=== PATIENT | female | born 1970 | race Two or more races ===

== ENCOUNTER 2020-07-09 04:52 | Emergency (ER) | payer OTHER, SELFPAY ==
[2020-07-09 05:11] VITALS: PULSE 66; RESP 18; TEMP 36.4; O2SAT 97; BMI 28.9
[2020-07-09] MEDS: 0.9 % Sodium Chloride 1,000 ML 999 ML IV (05:31)
[2020-07-09] MEDS: ondansetron HCL 4 MG/2 ML VIAL IVPUSH (05:32)
[2020-07-09 05:37] LABS: Basophils Percent Auto 0.3 % (0-2); Eosinophils Absolute Auto 0.2 X10*3/uL (0.0-0.4); Hematocrit 43.7 % (37-47); Hemoglobin 14.3 g/dl (12.0-16.0); Imm Gran Abs Auto 0.01 X10*3/uL (0.00-0.03); Imm Gran Pct Auto 0.1 % (0.0-0.4); Lymphocytes Absolute Auto 2.1 X10*3/uL (1.2-4.9); Lymphocytes Percent Auto 28.9 % (20-40); MANUAL DIFF FLAG NO; Mean Corpuscular HGB Conc 32.7 g/dl (31.0-35.0); Mean Corpuscular Hemoglobin 30.1 pg (27.0-33.0); Mean Platelet Volume 9.9 fL (9.4-12.3); Monocytes Absolute Auto 0.5 X10*3/uL (0.1-1.2); Monocytes Percent Auto 6.5 % (2-11); Neutrophils Absolute Auto 4.6 X10*3/uL (2.0-8.3); Neutrophils Percent Auto 62.2 % (45-73); Platelet Count 224 X10*3/uL (160-400); Red Blood Count 4.75 X10*6/uL (4.20-5.50); Red Cell Distribution Width 12.3 % (11.0-16.0); White Blood Count 7.4 X10*3/uL (4.8-10.8)
[2020-07-09 05:39] LABS: UPreg QC Valid YES; Urine Pregnancy NEGATIVE (NEGATIVE)
[2020-07-09 05:40] LABS: Appearance Urine CLEAR; Color Urine YELLOW; Glucose Urine UA NEG (NEG); Leukocyte Esterase Urine NEG (NEG); Nitrite Urine NEG (NEG); Specific Gravity - Urine >= 1.030 (1.005-1.025); UACC Culture Trigger NO; Urine Blood NEG (NEG); Urine Ketones NEG (NEG); Urine Protein NEG (NEG-TRACE)
--- NOTE | 2020-07-09 05:43 | ED.ABDPAIN ---
HPI - Abdominal Pain General Chief Complaint: Abdominal Pain Stated Complaint: NAUSEA/ABD PAIN Time Seen by Provider: 07/09/20 05:07 Source: patient Mode of arrival: ambulatory History of Present Illness HPI narrative: This is a 50-year-old female who states that she began having few episodes nonbloody diarrhea starting on Monday and it subsided and then she began experiencing recurrence of the diarrhea and then yesterday began developing some mild dizziness with headache and developed nausea after breakfast yesterday with mid abdominal discomfort and states that no one else in the house is sick and she does not believe that she ate contaminated food. Otherwise, she denies recent medication changes, antibiotic use, but does endorse that many years ago she had been diagnosed with IBS in her 20s. She denies any urinary symptoms, fevers, chills, shortness of breath, chest pain/palpitations and does have a positive surgical history for hysterectomy. Related Data Home Medications Medication Instructions Recorded Confirmed amitriptyline 10 mg tablet 0 mg PO 07/08/20 07/08/20 duloxetine 30 mg capsule,delayed 30 mg PO DIRECTED cap 07/08/20 07/08/20 release Previous Rx's Medication Instructions Recorded ondansetron HCl [Zofran] 4 mg PO Q8H PRN #6 tab 07/09/20 Allergies Allergy/AdvReac Type Severity Reaction Status Date / Time prochlorperazine Allergy Severe HIGH BP, Verified 07/08/20 14:21 [From COMPAZINE] AND HR EFFECTED ALSO TACKYCARDIA shellfish derived Allergy Severe ANAPHYLAXIS Verified 07/08/20 14:21 [SHELLFISH DERIVED] ciprofloxacin [CIPROFLOXACIN] Allergy Unknown HIVES Verified 07/08/20 14:21 Compazine Allergy Unknown tachycardia Verified 07/08/20 14:21 Review of Systems Review of Systems Pertinent positives and negatives as stated in HPI 10 point review of systems is otherwise negative. Physical Exam Vital Signs: Vital Signs: Last Vital Signs Temp 98 F 07/09/20 07:04 Pulse 62 07/09/20 07:04 Resp 16 07/09/20 07:04 BP 128/78 07/09/20 07:04 Pulse Ox 99 07/09/20 07:04 Body Mass Index 28.9 VITAL SIGNS: Reviewed. GENERAL: Well developed, well nourished, in no acute distress. HEAD: Normocephalic/atraumatic NOSE: Nares patent bilateral OROPHARYNX: no oral lesions noted, posterior pharynx clear and non-erythematous without noted tonsillar enlargement/erythema/exudates NECK: Supple, no adenopathy LUNGS: Normal breath sounds. No adventitious sounds or accessory muscle use. SpO2<97> CARDIOVASCULAR: Regular rate and rhythm without noted murmurs, no JVD or lower extremity edema. ABDOMEN: Soft, non-tender, non-distended with bowel sounds. No rigidity. No guarding. No palpable masses or hernias noted NEUROLOGIC: Alert and oriented x 4. Strength and sensation to light touch were grossly intact x 4. Course Course Course Narrative: This is a 50-year-old female with history and clinical presentation most consistent with likely viral gastroenteritis with subsequent dehydration, but will evaluate for SBO/colitis. All investigations were reviewed and patient was re-evaluated. There are no acute findings other than is a suggestion mild dehydration with patient stating that she is feeling much improved after having received the IV fluids and antiemetic. She is declining the CT scan at this time, with the understanding that this is the recommendation for the complete evaluation for her presenting symptoms. However, it was communicated to her that she is more than welcome to return should she experience any worsening or return of her symptoms. MDM - Abdominal Pain Lab Data Result diagrams: 07/09/20 05:29 07/09/20 05:29 Labs: Lab Results 07/09/20 07/09/20 07/09/20 Range/Units 05:29 05:29 05:29 WBC 7.4 (4.8-10.8) X10*3/uL RBC 4.75 (4.20-5.50) X10*6/uL Hgb 14.3 (12.0-16.0) g/dl Hct 43.7 (37-47) % MCV 92.0 (80-98) fL MCH 30.1 (27.0-33.0) pg MCHC 32.7 (31.0-35.0) g/dl RDW 12.3 (11.0-16.0) % Plt Count 224 (160-400) X10*3/uL MPV 9.9 (9.4-12.3) fL Immature Gran % (Auto) 0.1 (0.0-0.4) % Neut % (Auto) 62.2 (45-73) % Lymph % (Auto) 28.9 (20-40) % [place] % (Auto) 6.5 (2-11) % Eos % (Auto) 2.0 (0-4) % Baso % (Auto) 0.3 (0-2) % Lymph # (Auto) 2.1 (1.2-4.9) X10*3/uL [place] # (Auto) 0.5 (0.1-1.2) X10*3/uL Eos # (Auto) 0.2 (0.0-0.4) X10*3/uL Baso # (Auto) 0.0 (0.0-0.2) X10*3/uL Abs Immat Gran (auto) 0.01 (0.00-0.03) X10*3/uL Absolute Neuts (auto) 4.6 (2.0-8.3) X10*3/uL Absolute Nucleated RBC 0.000 (0.0-0.012) X10*3/uL Nucleated RBC % (auto) 0.0 (0.0-0.2) /100WBC Sodium 141 (135-145) mmol/L Potassium 4.2 (3.3-5.1) mmol/l Chloride 106 (96-108) mmol/L Carbon Dioxide 24 (22-29) mmol/L Anion Gap 15 (12-20) BUN 17 H (9-16) mg/dL Creatinine 0.79 (0.5-1.4) mg/dL Estim Creat Clear Calc 70.6 Estimated GFR > 60 Random Glucose 98 (60-115) mg/dL Calcium 9.2 (8.4-10.2) mg/dL Total Bilirubin 0.7 (0.0-1.0) mg/dL AST 19 (5-31) U/L ALT 20 (0-31) U/L Alkaline Phosphatase 74 (39-117) U/L Total Protein 7.7 (6.5-8.0) g/dL Albumin 4.7 (3.5-5.0) g/dL Lipase 7 L (8-78) U/L Urine Color Urine Appearance Urine pH (5.0-8.0) Ur Specific [place] (1.005-1.025) Urine Protein (NEG-TRACE) MG/DL Urine Glucose (UA) (NEG) MG/DL Urine Ketones (NEG) MG/DL Urine Blood (NEG) Urine Nitrite (NEG) Ur Leukocyte Esterase (NEG) Urine Test (NEGATIVE) 07/09/20 Range/Units 05:29 WBC (4.8-10.8) X10*3/uL RBC (4.20-5.50) X10*6/uL Hgb (12.0-16.0) g/dl Hct (37-47) % MCV (80-98) fL MCH (27.0-33.0) pg MCHC (31.0-35.0) g/dl RDW (11.0-16.0) % Plt Count (160-400) X10*3/uL MPV (9.4-12.3) fL Immature Gran % (Auto) (0.0-0.4) % Neut % (Auto) (45-73) % Lymph % (Auto) (20-40) % [place] % (Auto) (2-11) % Eos % (Auto) (0-4) % Baso % (Auto) (0-2) % Lymph # (Auto) (1.2-4.9) X10*3/uL [place] # (Auto) (0.1-1.2) X10*3/uL Eos # (Auto) (0.0-0.4) X10*3/uL Baso # (Auto) (0.0-0.2) X10*3/uL Abs Immat Gran (auto) (0.00-0.03) X10*3/uL Absolute Neuts (auto) (2.0-8.3) X10*3/uL Absolute Nucleated RBC (0.0-0.012) X10*3/uL Nucleated RBC % (auto) (0.0-0.2) /100WBC Sodium (135-145) mmol/L Potassium (3.3-5.1) mmol/l Chloride (96-108) mmol/L Carbon Dioxide (22-29) mmol/L Anion Gap (12-20) BUN (9-16) mg/dL Creatinine (0.5-1.4) mg/dL Estim Creat Clear Calc Estimated GFR Random Glucose (60-115) mg/dL Calcium (8.4-10.2) mg/dL Total Bilirubin (0.0-1.0) mg/dL AST (5-31) U/L ALT (0-31) U/L Alkaline Phosphatase (39-117) U/L Total Protein (6.5-8.0) g/dL Albumin (3.5-5.0) g/dL Lipase (8-78) U/L Urine Color YELLOW Urine Appearance CLEAR Urine pH 6.0 (5.0-8.0) Ur Specific [place] >= 1.030 H (1.005-1.025) Urine Protein NEG (NEG-TRACE) MG/DL Urine Glucose (UA) NEG (NEG) MG/DL Urine Ketones NEG (NEG) MG/DL Urine Blood NEG (NEG) Urine Nitrite NEG (NEG) Ur Leukocyte Esterase NEG (NEG) Urine Test NEGATIVE (NEGATIVE) Discharge Plan Discharge Clinical Impression: Gastroenteritis, Dehydration Patient Disposition: Home, Self-Care Instructions: Dehydration (ED), Gastroenteritis (ED) Additional Instructions: Continue to drink plenty of water. Resume all home medications. Please do not hesitate to return to this emergency department should you experience acute worsening of your symptoms. Prescriptions: New ondansetron HCl [Zofran] 4 mg tablet 4 mg PO Q8H PRN (Reason: nausea and vomiting) Qty: 6 RF: 0 No Action amitriptyline 10 mg tablet 0 mg PO RF: 0 duloxetine 30 mg capsule,delayed release(DR/EC) 30 mg PO DIRECTED RF: 0 Referrals: Nohelia Cobb MD [Primary Care Provider] - 2 days (Re-evaluation after assessment in ER for nausea/vomiting/diarrhea.) FOR[facility], [facility] Past Medical History Source: nursing notes reviewed Medical History Complex regional pain syndrome i of right lower limb Hallux varus (acquired), right foot Hammer toe of right foot Psoriasis Surgical menopause Surgical History History of bunionectomy History of section History of lumpectomy of right breast History of total abdominal hysterectomy Family History Family History Father CAD (coronary artery disease) HTN (hypertension) Hyperlipidemia Myocardial infarction Mother Asthma Rheumatoid arthritis Hypoglycemia Maternal Grandmother Diabetes mellitus Asthma CAD (coronary artery disease) Maternal Aunt Diabetes mellitus Brother No problems noted. Sister No problems noted. Son No problems noted. Daughter No problems noted. Social History Social History Alcohol intake: current Alcohol intake frequency: holidays/special occasions only Smoking Status: Never smoker Advance Directives: No Advance Directives Information Provided: No
[2020-07-09 06:09] LABS: Alanine Aminotransferase 20 U/L (0-31); Albumin Level 4.7 g/dL (3.5-5.0); Alkaline Phosphatase 74 U/L (39-117); Anion Gap 15 (12-20); Aspartate Amino Transferase 19 U/L (5-31); Bilirubin Total 0.7 mg/dL (0.0-1.0); Blood Urea Nitrogen 17 mg/dL (9-16); Calcium 9.2 mg/dL (8.4-10.2); Carbon Dioxide 24 mmol/L (22-29); Chloride 106 mmol/L (96-108); Creatinine Clr Calc Pharmacy 70.6; Estimated Glomerular Filt Rate > 60; Glucose Random 98 mg/dL (60-115); Potassium 4.2 mmol/l (3.3-5.1); Sodium 141 mmol/L (135-145); Total Protein 7.7 g/dL (6.5-8.0)
[2020-07-09 06:11] LABS: Lipase 7 U/L (8-78)
[2020-07-09 07:04] VITALS: BP 128/78; PULSE 62; RESP 16; TEMP 36.6; O2SAT 99
== END 2020-07-09 09:32 | disposition home or self-care (01) ==
PROVIDERS: Emergency Provider Student in an Organized Health Care Education/Training Program; PCP Internal Medicine
DX: E86.0 Dehydration (principal); K52.9 Noninfective gastroenteritis and colitis, unspecified
CPT/HCPCS: 36415; 80053; 81003; 81025; 83690; 85025; 96361; 96374; 99283; 99284; J2405

== ENCOUNTER 2020-08-03 09:29 | Outpatient (REF) | payer OTHER, SELFPAY | END 2020-08-03 09:30 | disposition home or self-care (01) | LOC: HO.LAB 09:29 | PROVIDERS: Visit Provider Internal Medicine | DX: Z20.822 Contact with and (suspected) exposure to COVID-19 (principal) | CPT/HCPCS: 36415; C9803; U0003; U0005 ==

== ENCOUNTER 2020-09-21 13:35 | Outpatient (REF) | payer OTHER, SELFPAY | END 2020-09-21 13:36 | disposition home or self-care (01) | LOC: HO.LAB 13:35 | PROVIDERS: Visit Provider Internal Medicine | DX: Z20.822 Contact with and (suspected) exposure to COVID-19 (principal) | CPT/HCPCS: 36415; C9803; U0003; U0005 ==

== ENCOUNTER 2020-10-29 15:52 | Outpatient (REF) | payer OTHER, SELFPAY ==
--- NOTE | ~2020-10-29 | MM_ITS ---
EXAMINATION: MM SCREENING DIGITAL BREAST TOMOSYNTHESIS, BILATERAL CLINICAL INFORMATION: Screening. Asymptomatic. The lifetime risk of breast cancer based on the Tyrer-Cuzick Model is 6%. COMPARISON: Mammography: 08/20/2019, 08/16/2018, 06/05/2017, 05/13/2016 TECHNIQUE: Digital breast tomosynthesis is performed in both the craniocaudal and mediolateral oblique views along with computer-aided detection (CAD). Synthesized 2D images are generated from the tomosynthesis. FINDINGS: There are scattered areas of fibroglandular density (ACR BI-RADS breast composition Category b). There are no significant masses, abnormal calcifications, or other abnormalities. There is stable smooth oval nodular contour anterior upper right breast on MLO view 4 cm from nipple similar to prior studies. No developing density. No architectural abnormality. The axilla and skin contours are unremarkable. MM/MM tomosynthesis screening BI IMPRESSION: No significant changes from prior exams. ASSESSMENT: BI-RADS 2: Benign RECOMMENDATION: Routine annual mammography screening. This patient's information was entered into a reminder system with a target due date for their next mammogram.
== END 2020-10-29 15:53 | disposition home or self-care (01) ==
LOC: HO.MAMMO 15:52
PROVIDERS: PCP Internal Medicine; Visit Provider Internal Medicine
DX: Z12.31 Encounter for screening mammogram for malignant neoplasm of breast (principal)
CPT/HCPCS: 77063; 77067

== ENCOUNTER 2020-11-08 23:36 | Emergency (ER) | payer OTHER, SELFPAY ==
[2020-11-08 23:50] VITALS: BP 132/63; BP 142/90; PULSE 71; PULSE 72; RESP 16; TEMP 36.2; O2SAT 90; O2SAT 96; BMI 25.2
--- NOTE | 2020-11-08 23:57 | ED.ALCOHOL ---
HPI - Alcohol General Chief Complaint: ETOH/Substance Use Stated Complaint: etoh Time Seen by Provider: 11/08/20 23:38 Source: patient, family and EMS Mode of arrival: EMS History of Present Illness HPI narrative: 50-year-old female with a past medical history of complex regional pain syndrome, BIBA after wei called EMS due to patient being intoxicated and unresponsive on couch. Per EMS a large amount of vomit was present on scene. Patient was given intranasal Narcan by EMS due to being minimally responsive with slight effect. patient reports her son did not call her today so she drank, reports drinking wine. Vaguely suicidal. Denies illicit drug use, falls, trauma History limited due to patient's acute mental status MD complaint: alcohol intoxication Related Data Home Medications Medication Instructions Recorded Confirmed amitriptyline 10 mg tablet 0 mg PO 07/08/20 07/08/20 duloxetine 30 mg capsule,delayed 30 mg PO DIRECTED cap 07/08/20 07/08/20 release Previous Rx's Medication Instructions Recorded ondansetron HCl [Zofran] 4 mg PO Q8H PRN #6 tab 07/09/20 meclizine 25 mg tablet 25 mg PO BID PRN #20 tab 07/14/20 omeprazole magnesium 20 mg 20 mg PO DAILY #30 cap 07/14/20 capsule,delayed release fluticasone propionate 50 1 spray INTRANASAL QAM #48 ml 09/22/20 mcg/actuation nasal spray,suspension Allergies Allergy/AdvReac Type Severity Reaction Status Date / Time prochlorperazine Allergy Severe HIGH BP, Verified 07/08/20 14:21 [From COMPAZINE] AND HR EFFECTED ALSO TACKYCARDIA shellfish derived Allergy Severe ANAPHYLAXIS Verified 07/08/20 14:21 [SHELLFISH DERIVED] ciprofloxacin [CIPROFLOXACIN] Allergy Unknown HIVES Verified 07/08/20 14:21 Compazine Allergy Unknown tachycardia Verified 07/08/20 14:21 Review of Systems Review of Systems: Constitutional: No Fever Gastrointestinal: + Nausea, + Vomiting, No Abdominal pain, Musculoskeletal: No joint pain Skin: No Skin Lesions, No rash Neuro: No head trauma Psych: +Depression, +SI ROS limited due to patient's acute intoxication Yes all other systems are reviewed and are negative PMFSH Past Medical History Attestation statement: The following information was validated with the patient. Medical History Complex regional pain syndrome i of right lower limb Hallux varus (acquired), right foot Hammer toe of right foot Psoriasis Surgical menopause Surgical History History of bunionectomy History of section History of lumpectomy of right breast History of total abdominal hysterectomy Family History Family History Father CAD (coronary artery disease) HTN (hypertension) Hyperlipidemia Myocardial infarction Mother Asthma Rheumatoid arthritis Hypoglycemia Maternal Grandmother Diabetes mellitus Asthma CAD (coronary artery disease) Maternal Aunt Diabetes mellitus Brother No problems noted. Sister No problems noted. Son No problems noted. Daughter No problems noted. Social History Social History Alcohol intake: current Alcohol intake frequency: holidays/special occasions only Smoking Status: Never smoker Advance Directives: No Advance Directives Information Provided: No Patient : No Physical Exam Vital Signs: Vital Signs: Last Vital Signs Temp 97.8 F 11/09/20 00:00 Pulse 64 11/09/20 00:00 Resp 16 11/09/20 00:00 BP 124/68 11/09/20 00:00 Pulse Ox 100 11/09/20 00:00 Body Mass Index 25.2 Const: Other: Intoxicated, EtOH odor on breath, actively vomiting/dry heaving on exam. Easily arousable to voice General: awake HENMT: Head: Yes normal to inspection and Yes atraumatic Ears: hearing grossly normal bilaterally General nose exam: Normal external nose present Face and sinus: Yes normal facial exam Eyes: General: appearance normal, both eyes and all related structures Pupils: Equal, round and reactive pupils present EOM: EOMs intact bilaterally Neck: Neck: Yes normal visual inspection and Yes no meningeal signs Resp: Effort & Inspection: normal respiratory effort Cardio: Rate: regular rate GI: Inspection: Yes normal to inspection Palpation (GI): Soft to palpation, nontender, no guarding and not rigid Skin: Rashes: no rashes Wounds: no wounds Neuro: General: no meningeal signs Cranial nerves: Yes Equal, round and reactive pupils present Extrem: General: Yes normal to inspection Psych: Affect: Sad affect present Thought content: Depressive thoughts present Course Course Course Narrative: -ethanol 297, labs otherwise unremarkable -0200-- ED care transferred to Dr. Au pending GILLIAM, KEON eval, and clinical sobriety MDM - Alcohol MDM Narrative Medical decision making narrative: 50-year-old female with a past medical history of complex regional pain syndrome, BIBA after fiancee called EMS due to patient being intoxicated and unresponsive on couch. On exam sating 90% on RA, intoxicated, easily arousable to voice, actively vomiting on exam, atraumatic, ROSS, vaguely suicidal. Plan: Labs, antiemetics, BHN Consult Medical Records Attestation: I reviewed the patient's medical records. Lab Data Attestation: I reviewed the patient's lab results. Result diagrams: 11/09/20 00:11 11/09/20 00:11 Labs: Lab Results 11/09/20 11/09/20 11/09/20 Range/Units 00:11 00:11 00:11 WBC 6.9 (4.8-10.8) X10*3/uL RBC 4.53 (4.20-5.50) X10*6/uL Hgb 13.5 (12.0-16.0) g/dl Hct 41.5 (37-47) % MCV 91.6 (80-98) fL MCH 29.8 (27.0-33.0) pg MCHC 32.5 (31.0-35.0) g/dl RDW 12.6 (11.0-16.0) % Plt Count 232 (160-400) X10*3/uL MPV 10.1 (9.4-12.3) fL Immature Gran % (Auto) 0.1 (0.0-0.4) % Neut % (Auto) 48.9 (45-73) % Lymph % (Auto) 43.9 H (20-40) % [place] % (Auto) 5.1 (2-11) % Eos % (Auto) 1.4 (0-4) % Baso % (Auto) 0.6 (0-2) % Lymph # (Auto) 3.0 (1.2-4.9) X10*3/uL [place] # (Auto) 0.4 (0.1-1.2) X10*3/uL Eos # (Auto) 0.1 (0.0-0.4) X10*3/uL Baso # (Auto) 0.0 (0.0-0.2) X10*3/uL Abs Immat Gran (auto) 0.01 (0.00-0.03) X10*3/uL Absolute Neuts (auto) 3.4 (2.0-8.3) X10*3/uL Absolute Nucleated RBC 0.000 (0.0-0.012) X10*3/uL Nucleated RBC % (auto) 0.0 (0.0-0.2) /100WBC Hold Blue Top Sodium 144 (135-145) mmol/L Potassium 4.0 (3.3-5.1) mmol/L Chloride 106 (96-108) mmol/L Carbon Dioxide 24 (22-29) mmol/L Anion Gap 18 (12-20) BUN 13 (9-16) mg/dL Creatinine 0.85 (0.5-1.4) mg/dL Estim Creat Clear Calc 61.4 Estimated GFR > 60 Random Glucose 99 (60-115) mg/dL Calcium 9.7 (8.4-10.2) mg/dL Total Bilirubin 0.4 (0.0-1.0) mg/dL Direct Bilirubin < 0.2 (0.0-0.5) mg/dL AST 20 (5-31) U/L ALT 17 (0-31) U/L Alkaline Phosphatase 58 D (39-117) U/L Total Protein 7.3 (6.5-8.0) g/dL Albumin 4.6 (3.5-5.0) g/dL Lipase (8-78) U/L Ethyl Alcohol 297 mg/dL 11/09/20 11/09/20 Range/Units 00:11 00:11 WBC (4.8-10.8) X10*3/uL RBC (4.20-5.50) X10*6/uL Hgb (12.0-16.0) g/dl Hct (37-47) % MCV (80-98) fL MCH (27.0-33.0) pg MCHC (31.0-35.0) g/dl RDW (11.0-16.0) % Plt Count (160-400) X10*3/uL MPV (9.4-12.3) fL Immature Gran % (Auto) (0.0-0.4) % Neut % (Auto) (45-73) % Lymph % (Auto) (20-40) % [place] % (Auto) (2-11) % Eos % (Auto) (0-4) % Baso % (Auto) (0-2) % Lymph # (Auto) (1.2-4.9) X10*3/uL [place] # (Auto) (0.1-1.2) X10*3/uL Eos # (Auto) (0.0-0.4) X10*3/uL Baso # (Auto) (0.0-0.2) X10*3/uL Abs Immat Gran (auto) (0.00-0.03) X10*3/uL Absolute Neuts (auto) (2.0-8.3) X10*3/uL Absolute Nucleated RBC (0.0-0.012) X10*3/uL Nucleated RBC % (auto) (0.0-0.2) /100WBC Hold Blue Top SEE NOTE Sodium (135-145) mmol/L Potassium (3.3-5.1) mmol/L Chloride (96-108) mmol/L Carbon Dioxide (22-29) mmol/L Anion Gap (12-20) BUN (9-16) mg/dL Creatinine (0.5-1.4) mg/dL Estim Creat Clear Calc Estimated GFR Random Glucose (60-115) mg/dL Calcium (8.4-10.2) mg/dL Total Bilirubin (0.0-1.0) mg/dL Direct Bilirubin (0.0-0.5) mg/dL AST (5-31) U/L ALT (0-31) U/L Alkaline Phosphatase (39-117) U/L Total Protein (6.5-8.0) g/dL Albumin (3.5-5.0) g/dL Lipase 10 (8-78) U/L Ethyl Alcohol mg/dL Discharge Plan Discharge Clinical Impression: Alcoholic intoxication, Depression Instructions: Alcohol Intoxication (ED) Prescriptions: No Action fluticasone propionate 50 mcg/actuation spray,suspension 1 spray intranasal QAM Qty: 48 RF: 1 ondansetron HCl [Zofran] 4 mg tablet 4 mg PO Q8H PRN (Reason: nausea and vomiting) Qty: 6 RF: 0 amitriptyline 10 mg tablet 0 mg PO RF: 0 duloxetine 30 mg capsule,delayed release(DR/EC) 30 mg PO DIRECTED RF: 0 omeprazole magnesium 20 mg capsule,delayed release(DR/EC) 20 mg PO DAILY Qty: 30 RF: 0 meclizine 25 mg tablet 25 mg PO BID PRN (Reason: dizziness) Qty: 20 RF: 0 Referrals: Physician,Unknown [Primary Care Provider] - 2 days
[2020-11-09] VITALS: BP 124/68; PULSE 64; RESP 16; TEMP 36.6; O2SAT 100
[2020-11-09 00:19] LABS: MANUAL DIFF FLAG NO
[2020-11-09 00:20] LABS: Basophils Percent Auto 0.6 % (0-2); Eosinophils Absolute Auto 0.1 X10*3/uL (0.0-0.4); Eosinophils Percent Auto 1.4 % (0-4); Hematocrit 41.5 % (37-47); Hemoglobin 13.5 g/dl (12.0-16.0); Imm Gran Abs Auto 0.01 X10*3/uL (0.00-0.03); Imm Gran Pct Auto 0.1 % (0.0-0.4); Lymphocytes Percent Auto 43.9 % (20-40); Mean Corpuscular HGB Conc 32.5 g/dl (31.0-35.0); Mean Corpuscular Hemoglobin 29.8 pg (27.0-33.0); Mean Corpuscular Volume 91.6 fL (80-98); Mean Platelet Volume 10.1 fL (9.4-12.3); Monocytes Absolute Auto 0.4 X10*3/uL (0.1-1.2); Monocytes Percent Auto 5.1 % (2-11); Neutrophils Absolute Auto 3.4 X10*3/uL (2.0-8.3); Neutrophils Percent Auto 48.9 % (45-73); Platelet Count 232 X10*3/uL (160-400); Red Blood Count 4.53 X10*6/uL (4.20-5.50); Red Cell Distribution Width 12.6 % (11.0-16.0); White Blood Count 6.9 X10*3/uL (4.8-10.8)
[2020-11-09] MEDS: ondansetron HCL 4 MG/2 ML VIAL IVPUSH (00:30)
[2020-11-09] MEDS: 0.9 % Sodium Chloride 1,000 ML 999 ML IVCONT ×2 (00:30)
[2020-11-09 00:42] LABS: Ethanol 297 mg/dL
[2020-11-09 00:45] LABS: Lipase 10 U/L (8-78)
[2020-11-09 00:48] LABS: Alanine Aminotransferase 17 U/L (0-31); Albumin Level 4.6 g/dL (3.5-5.0); Alkaline Phosphatase 58 U/L (39-117); Anion Gap 18 (12-20); Aspartate Amino Transferase 20 U/L (5-31); Bilirubin Direct < 0.2 mg/dL (0.0-0.5); Bilirubin Total 0.4 mg/dL (0.0-1.0); Blood Urea Nitrogen 13 mg/dL (9-16); Calcium 9.7 mg/dL (8.4-10.2); Carbon Dioxide 24 mmol/L (22-29); Chloride 106 mmol/L (96-108); Creatinine Clr Calc Pharmacy 61.4; Estimated Glomerular Filt Rate > 60; Glucose Random 99 mg/dL (60-115); Sodium 144 mmol/L (135-145); Total Protein 7.3 g/dL (6.5-8.0)
[2020-11-09 02:31] LABS: Amphetamine Screen Urine Not Detected (Not Detect); Barbiturates, Urine Not Detected (Not Detect); Benzodiazepines Screen Urine Not Detected (Not Detect); Cannabinoid Screen Urine Not Detected (Not Detect); Cocaine Screen Urine Not Detected (Not Detect); Opiate Screen Urine Not Detected (Not Detect); Phencyclidine Screen Urine Not Detected (Not Detect)
[2020-11-09 03:11] VITALS: BP 128/70; PULSE 69; RESP 14; O2SAT 96
[2020-11-09 04:00] VITALS: PULSE 61; RESP 16; O2SAT 98
[2020-11-09 05:51] VITALS: BP 99/66; PULSE 67; RESP 16; TEMP 36.9; O2SAT 98
== END 2020-11-09 07:14 | disposition home or self-care (01) ==
PROVIDERS: Physician Assistant; Emergency Provider Student in an Organized Health Care Education/Training Program
DX: F10.129 Alcohol abuse with intoxication, unspecified (principal); Y90.8 Blood alcohol level of 240 mg/100 ml or more; R45.851 Suicidal ideations; F33.1 Major depressive disorder, recurrent, moderate; Z79.899 Other long term (current) drug therapy
CPT/HCPCS: 36415; 80048; 80076; 80307; 80320; 83690; 85025; 96374; 99285; J2405

== ENCOUNTER 2021-01-07 | Outpatient (REF) | payer OTHER, SELFPAY | END 2021-01-07 00:01 | disposition home or self-care (01) | LOC: HO.LNP | PROVIDERS: Visit Provider Hospitalist | DX: R30.0 Dysuria (principal) | CPT/HCPCS: 87086; 87088; 87186 ==

== ENCOUNTER 2021-01-31 12:17 | Emergency (ER) | payer OTHER, SELFPAY ==
--- NOTE | ~2021-01-31 | XR_ITS ---
EXAMINATION: XR CHEST CLINICAL INFORMATION: Cough. COMPARISON: None TECHNIQUE: Frontal view of the chest was obtained. FINDINGS: The lungs are well-expanded with patchy opacities seen in the right middle lobe. There is a round artifact seen in the right upper lateral chest. Rest lungs are clear. The heart size and pulmonary vascularity is normal. No gross bony abnormality seen. XR/XR chest 1V IMPRESSION: Faint haziness right middle lobe question developing infiltrate.
[2021-01-31 12:27] VITALS: BP 132/75; PULSE 102; RESP 20; TEMP 38.5; O2SAT 99; BMI 23.4
[2021-01-31 13:33] VITALS: BP 132/79; PULSE 94; TEMP 37.8; O2SAT 99
[2021-01-31] MEDS: Acetaminophen 325 MG TABLET 650 MG PO (14:02)
[2021-01-31 14:04] VITALS: BP 135/81; PULSE 101; RESP 23
[2021-01-31 14:05] LABS: MANUAL DIFF FLAG NO
[2021-01-31 14:06] LABS: Basophils Percent Auto 0.2 % (0-2); Eosinophils Percent Auto 0.2 % (0-4); Hematocrit 39.4 % (37-47); Hemoglobin 12.9 g/dl (12.0-16.0); Imm Gran Abs Auto 0.01 X10*3/uL (0.00-0.03); Imm Gran Pct Auto 0.2 % (0.0-0.4); Lymphocytes Absolute Auto 0.7 X10*3/uL (1.2-4.9); Lymphocytes Percent Auto 15.6 % (20-40); Mean Corpuscular HGB Conc 32.7 g/dl (31.0-35.0); Mean Corpuscular Hemoglobin 30.2 pg (27.0-33.0); Mean Corpuscular Volume 92.3 fL (80-98); Mean Platelet Volume 9.6 fL (9.4-12.3); Monocytes Absolute Auto 0.5 X10*3/uL (0.1-1.2); Monocytes Percent Auto 11.6 % (2-11); Neutrophils Absolute Auto 3.2 X10*3/uL (2.0-8.3); Neutrophils Percent Auto 72.2 % (45-73); Platelet Count 170 X10*3/uL (160-400); Red Blood Count 4.27 X10*6/uL (4.20-5.50); Red Cell Distribution Width 13.9 % (11.0-16.0); White Blood Count 4.5 X10*3/uL (4.8-10.8)
[2021-01-31 14:08] VITALS: PULSE 101; O2SAT 95
[2021-01-31 14:17] LABS: Prothrombin Time 10.9 SEC (9.9-13.0)
[2021-01-31 14:19] LABS: Partial Thromboplastin Time 31.3 SEC (24.1-38.0)
[2021-01-31 14:30] LABS: Lactic Acid 0.9 mmol/L (0.5-2.0)
[2021-01-31 14:34] LABS: Alanine Aminotransferase 33 U/L (0-31); Albumin Level 4.4 g/dL (3.5-5.0); Alkaline Phosphatase 64 U/L (39-117); Anion Gap 14 (12-20); Aspartate Amino Transferase 35 U/L (5-31); Bilirubin Direct 0.2 mg/dL (0.0-0.5); Bilirubin Total 0.6 mg/dL (0.0-1.0); Blood Urea Nitrogen 13 mg/dL (9-16); Calcium 9.2 mg/dL (8.4-10.2); Carbon Dioxide 25 mmol/L (22-29); Chloride 111 mmol/L (96-108); Creatinine Clr Calc Pharmacy 58.7; Estimated Glomerular Filt Rate > 60; Glucose Random 89 mg/dL (60-115); Potassium 3.9 mmol/L (3.3-5.1); Sodium 146 mmol/L (135-145); Total Protein 7.1 g/dL (6.5-8.0)
[2021-01-31 14:44] LABS: Influenza A PCR NEGATIVE (Negative); Influenza B PCR NEGATIVE (Negative); Resp Syncy Virus RNA Qual PCR NEGATIVE (Negative); SARS COV2 PCR INHOUSE POSITIVE (Negative)
--- NOTE | 2021-01-31 14:48 | ED_ITS ---
HPI - URI/Sore Throat General Chief Complaint: Upper Respiratory Symptoms Stated Complaint: chills, fever, nausea, headache Time Seen by Provider: 01/31/21 14:47 Source: patient Mode of arrival: ambulatory Limitations: no limitations History of Present Illness HPI Narrative: Patient with no significant past medical history has not taken COVID vaccine been feeling weak congested sore throat body aches loss of taste sensation for last 2-3 days no one at home with COVID positive but patient was outside in the mall meeting people. No chest pain but has dry cough feels exhausted when patient arrived had temperature of 101.3 degrees MD elicited complaint: fever, cough, sore throat and nasal congestion Related Data Home Medications Medication Instructions Recorded Confirmed estradiol 0 vag ring VAGINAL 01/01/21 01/07/21 Previous Rx's Medication Instructions Recorded fluticasone propionate 50 1 spray INTRANASAL QAM #48 ml 09/22/20 mcg/actuation nasal spray,suspension clobetasol 0.05 % topical ointment 1 appl TOPICAL BID 14 Days #60 g 01/01/21 sulfamethoxazole 800 1 tab PO BID #14 tab 01/07/21 mg-trimethoprim 160 mg tablet (Bactrim DS) azithromycin 500 mg tablet 500 mg PO DAILY 3 Days #3 tab 01/31/21 (Zithromax TRI-GEOVANNA) codeine 10 mg-guaifenesin 100 mg/5 10 ml PO Q6H PRN #237 ml 01/31/21 mL oral liquid dexamethasone 6 mg tablet 6 mg PO DAILY #7 tab 01/31/21 (Decadron) Allergies Allergy/AdvReac Type Severity Reaction Status Date / Time prochlorperazine Allergy Severe HIGH BP, Verified 01/07/21 15:36 [From COMPAZINE] AND HR EFFECTED ALSO TACKYCARDIA shellfish derived Allergy Severe ANAPHYLAXIS Verified 01/07/21 15:36 [SHELLFISH DERIVED] ciprofloxacin [CIPROFLOXACIN] Allergy Unknown HIVES Verified 01/07/21 15:36 Compazine Allergy Unknown tachycardia Verified 01/07/21 15:36 Review of Systems Review of Systems: Yes all other systems are reviewed and are negative [facility] Past Medical History Medical History Complex regional pain syndrome i of right lower limb Hallux varus (acquired), right foot Hammer toe of right foot Psoriasis Surgical menopause Surgical History History of bunionectomy History of section History of lumpectomy of right breast History of total abdominal hysterectomy Family History Family History Father CAD (coronary artery disease) HTN (hypertension) Hyperlipidemia Myocardial infarction Mother Asthma Rheumatoid arthritis Hypoglycemia Maternal Grandmother Diabetes mellitus Asthma CAD (coronary artery disease) Maternal Aunt Diabetes mellitus Brother No problems noted. Sister No problems noted. Son No problems noted. Daughter No problems noted. Social History Social History Alcohol intake: current Alcohol intake frequency: holidays/special occasions only Alcohol type: wine and hard liquor Patient Tobacco Use Status: Never used Tobacco Use of substances other than those prescribed or required for medical reasons: No Advance Directives: No Advance Directives Information Provided: Yes Patient : No Physical Exam Vital Signs: Vital Signs: Last Vital Signs Temp 99.7 F 01/31/21 16:15 Pulse 98 01/31/21 16:15 Resp 19 01/31/21 16:15 BP 123/70 01/31/21 16:15 Pulse Ox 96 01/31/21 16:15 Body Mass Index 23.4 Appearance: Alert. Oriented X3. No acute distress. Eyes: PERRLA, No Nystagmus ENT: Pharynx normal. Oral Mucosa moist Neck: Normal inspection. Neck supple. CVS: Tachycardia with heart rate 102 beats per minute no murmur or gallop Pulses normal. Respiratory: No respiratory distress. Equal air entry bilateral, no wheezing/rales/rhonchi Abdomen: Soft and nontender. Bowel sounds are present, no mass palpable, no CVA tenderness Skin: Skin warm and dry. Normal skin color. Normal skin turgor. Extremities: No lower extremity edema. No calf tenderness Neuro: Oriented X 3. No motor deficit. MDM - URI/Sore Throat MDM Narrative Medical decision making narrative: Patient with COVID-19 positive with slight infiltrate in the right lung saturating 99% at room air will discharge patient home on Decadron and Zithromax advised to come back to the ER in case shortness of breath gets worse Differential Diagnosis Differential diagnosis: Likely upper respiratory infection Lab Data Attestation: I reviewed the patient's lab results. Result diagrams: 01/31/21 13:56 01/31/21 13:56 Labs: Lab Results 01/31/21 01/31/21 01/31/21 Range/Units 13:56 13:56 13:56 WBC 4.5 L (4.8-10.8) X10*3/uL RBC 4.27 (4.20-5.50) X10*6/uL Hgb 12.9 (12.0-16.0) g/dl Hct 39.4 (37-47) % MCV 92.3 (80-98) fL MCH 30.2 (27.0-33.0) pg MCHC 32.7 (31.0-35.0) g/dl RDW 13.9 (11.0-16.0) % Plt Count 170 D (160-400) X10*3/uL MPV 9.6 (9.4-12.3) fL Immature Gran % (Auto) 0.2 (0.0-0.4) % Neut % (Auto) 72.2 (45-73) % Lymph % (Auto) 15.6 L (20-40) % [place] % (Auto) 11.6 H (2-11) % Eos % (Auto) 0.2 (0-4) % Baso % (Auto) 0.2 (0-2) % Lymph # (Auto) 0.7 L (1.2-4.9) X10*3/uL [place] # (Auto) 0.5 (0.1-1.2) X10*3/uL Eos # (Auto) 0.0 (0.0-0.4) X10*3/uL Baso # (Auto) 0.0 (0.0-0.2) X10*3/uL Abs Immat Gran (auto) 0.01 (0.00-0.03) X10*3/uL Absolute Neuts (auto) 3.2 (2.0-8.3) X10*3/uL Absolute Nucleated RBC 0.000 (0.0-0.012) X10*3/uL Nucleated RBC % (auto) 0.0 (0.0-0.2) /100WBC PT 10.9 (9.9-13.0) SEC INR 1.0 (0.9-1.1) APTT 31.3 (24.1-38.0) SEC D-Dimer < 200 NG/ML Sodium 146 H (135-145) mmol/L Potassium 3.9 (3.3-5.1) mmol/L Chloride 111 H (96-108) mmol/L Carbon Dioxide 25 (22-29) mmol/L Anion Gap 14 (12-20) BUN 13 (9-16) mg/dL Creatinine 0.85 (0.5-1.4) mg/dL Estim Creat Clear Calc 58.7 Estimated GFR > 60 Random Glucose 89 (60-115) mg/dL Lactic Acid (0.5-2.0) mmol/L Calcium 9.2 (8.4-10.2) mg/dL Total Bilirubin 0.6 (0.0-1.0) mg/dL Direct Bilirubin 0.2 (0.0-0.5) mg/dL AST 35 H D (5-31) U/L ALT 33 H (0-31) U/L Alkaline Phosphatase 64 (39-117) U/L Total Protein 7.1 (6.5-8.0) g/dL Albumin 4.4 (3.5-5.0) g/dL Coronavirus (PCR) (Negative) Influenza Type A (PCR) (Negative) Influenza Type B (PCR) (Negative) RSV RNA Qual (PCR) (Negative) 01/31/21 01/31/21 Range/Units 13:56 13:56 WBC (4.8-10.8) X10*3/uL RBC (4.20-5.50) X10*6/uL Hgb (12.0-16.0) g/dl Hct (37-47) % MCV (80-98) fL MCH (27.0-33.0) pg MCHC (31.0-35.0) g/dl RDW (11.0-16.0) % Plt Count (160-400) X10*3/uL MPV (9.4-12.3) fL Immature Gran % (Auto) (0.0-0.4) % Neut % (Auto) (45-73) % Lymph % (Auto) (20-40) % [place] % (Auto) (2-11) % Eos % (Auto) (0-4) % Baso % (Auto) (0-2) % Lymph # (Auto) (1.2-4.9) X10*3/uL [place] # (Auto) (0.1-1.2) X10*3/uL Eos # (Auto) (0.0-0.4) X10*3/uL Baso # (Auto) (0.0-0.2) X10*3/uL Abs Immat Gran (auto) (0.00-0.03) X10*3/uL Absolute Neuts (auto) (2.0-8.3) X10*3/uL Absolute Nucleated RBC (0.0-0.012) X10*3/uL Nucleated RBC % (auto) (0.0-0.2) /100WBC PT (9.9-13.0) SEC INR (0.9-1.1) APTT (24.1-38.0) SEC D-Dimer NG/ML Sodium (135-145) mmol/L Potassium (3.3-5.1) mmol/L Chloride (96-108) mmol/L Carbon Dioxide (22-29) mmol/L Anion Gap (12-20) BUN (9-16) mg/dL Creatinine (0.5-1.4) mg/dL Estim Creat Clear Calc Estimated GFR Random Glucose (60-115) mg/dL Lactic Acid 0.9 (0.5-2.0) mmol/L Calcium (8.4-10.2) mg/dL Total Bilirubin (0.0-1.0) mg/dL Direct Bilirubin (0.0-0.5) mg/dL AST (5-31) U/L ALT (0-31) U/L Alkaline Phosphatase (39-117) U/L Total Protein (6.5-8.0) g/dL Albumin (3.5-5.0) g/dL Coronavirus (PCR) POSITIVE A (Negative) Influenza Type A (PCR) NEGATIVE (Negative) Influenza Type B (PCR) NEGATIVE (Negative) RSV RNA Qual (PCR) NEGATIVE (Negative) Discharge Plan Discharge Clinical Impression: Pneumonia due to COVID-19 virus Patient Disposition: Home, Self-Care Instructions: COVID-19 (Coronavirus Disease 2019) (ED) Additional Instructions: Isolation as advised. Drink plenty of fluids. Take medication as prescribed. report to the ER if increased shortness of breath and not feeling better Prescriptions: New azithromycin [Zithromax TRI-GEOVANNA] 500 mg tablet 500 mg PO DAILY 3 Days Qty: 3 RF: 0 dexamethasone [Decadron] 6 mg tablet 6 mg PO DAILY Qty: 7 RF: 0 codeine-guaifenesin 10-100 mg/5 mL liquid 10 ml PO Q6H PRN (Reason: cough) Qty: 237 RF: 0 No Action fluticasone propionate 50 mcg/actuation spray,suspension 1 spray intranasal QAM Qty: 48 RF: 1 Estring 2 mg (7.5 mcg /24 hour) ring 0 vag ring vaginal RF: 0 clobetasol 0.05 % ointment 1 appl topical BID 14 Days Qty: 60 RF: 1 sulfamethoxazole-trimethoprim [Bactrim DS] 800-160 mg tablet 1 tab PO BID Qty: 14 RF: 0
[2021-01-31] MEDS: dexAMETHasone 6 MG TABLET PO (15:38)
[2021-01-31] MEDS: guaiFEN/Codeine SF 200/20/10ML 10 ML LIQUID PO (15:38)
[2021-01-31] MEDS: Azithromycin 500 MG TABLET PO (15:38)
[2021-01-31 15:41] VITALS: PULSE 101; RESP 21; O2SAT 97
[2021-01-31 16:15] VITALS: BP 123/70; PULSE 98; RESP 19; TEMP 37.6; O2SAT 96
[2021-01-31 16:18] LABS: D Dimer < 200 NG/ML
== END 2021-01-31 16:46 | disposition home or self-care (01) ==
PROVIDERS: Emergency Provider Internal Medicine; PCP Internal Medicine
DX: U07.1 COVID-19 (principal); J12.82 Pneumonia due to coronavirus disease 2019; R50.9 Fever, unspecified; R51.9 Headache, unspecified; Z79.899 Other long term (current) drug therapy
CPT/HCPCS: 0241U; 36415; 71045; 80048; 80076; 83605; 85025; 85379; 85610; 85730; 87040; 94640; 94644; 99285; J8540

== ENCOUNTER 2021-02-02 21:41 | Emergency (ER) | payer OTHER, SELFPAY | END 2021-02-02 23:48 | disposition left against medical advice (07) | PROVIDERS: Emergency Provider Emergency Medicine; PCP Internal Medicine | DX: U07.1 COVID-19 (principal) | CPT/HCPCS: 99281 ==

== ENCOUNTER 2021-04-29 | Outpatient (REF) | payer OTHER, SELFPAY ==
[2021-04-30 12:57] LABS: Influenza A PCR NEGATIVE (Negative); Influenza B PCR NEGATIVE (Negative); Resp Syncy Virus RNA Qual PCR NEGATIVE (Negative); SARS COV2 PCR INHOUSE NEGATIVE (Negative)
== END 2021-04-29 00:01 | disposition home or self-care (01) ==
LOC: HO.LNP
PROVIDERS: Visit Provider Physician Assistant Medical
DX: Z20.822 Contact with and (suspected) exposure to COVID-19 (principal); J06.9 Acute upper respiratory infection, unspecified
CPT/HCPCS: 0241U

== ENCOUNTER 2021-06-28 07:00 | Outpatient (RCR) | payer OTHER, SELFPAY ==
[2021-06-22 08:54] VITALS: BP 124/80; PULSE 68; O2SAT 98
--- NOTE | 2021-06-22 12:16 | MHC.PT.EP ---
[facility] [place] [facility] [place] [facility] [place] [facility] [address] Jojo Vargas [address] [phone] F: [phone] F: [phone] F: [phone] F: [phone] Physical Therapy Plan of Care Date of Evaluation: Date of Surgery: Diagnosis: Patient is a 51-year-old female with a script for vertigo Assessment: Patient is a 51-year-old female with a script for vertigo. Patient presented to PCP on 06/17 (symptoms started on 06/16) with reports of dizziness. She was given amoxicillin and meclizine (states that she had some head congestion as well). She notices symptoms when she rolls in bed, turning her head and looking down. She reports that she did have a little bit of nausea and 1 episode of vomiting. She has had vestibular rehab in the past and states meclizine did help but it was really the vestibular rehab that made it resolve. 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 Examination shows normal oculomotor tests, (-) VBI B and decreased cervical AROM due to symptoms only not pain or stiffness. She was (+) for BPPV with R roll test for geotropic nystagmus (3 beats). Patient also noted to have poor balance with DGI and [place]. Patient also reporting feeling like I am blacking out when sitting up from supine. Performed BP in supine 140/90 and then in sitting which dropped to 120/80. Educated on orthostatic BP and assessing this again at work and will reassess again at this facility. S/S consistent with ? L horizontal canal BPPV and ? vestibular hypofunction. She would benefit from PT 2x/wk for 4wks to address impairments, implement HEP and optimize functional. mobility. Frequency and Duration: The patient will be seen 2x/wk for 5wks Short Term Goals: I in HEP Door Attendant Goals: No nystagmus or symptoms in any testing positions No LOB noted and normal scores on balance tests Return to work in full, return to normal housework Treatment Plan: Modalities to reduce pain, spasms and effusion. Manual therapy to restore motion and function. Therapeutic exercise to improve strength and flexibility. Neuromuscular re-education for posture and balance. Therapeutic activities to return to functional activities of daily living. Electronically signed by: Chasity Leong PT Please sign and return to therapist. Thank you for your referral.
--- NOTE | 2021-08-24 12:44 | MHC.PT.DC ---
[facility] [place] [facility] [place] [facility] [place] [facility] [address] Jojo Vargas [address] [phone] F: [phone] F: [phone] F: [phone] F: [phone] Physical Therapy Discharge Report Diagnosis: Patient is a 51-year-old female with a script for vertigo Date of Surgery: Date of Evaluation: 06/22/21 Date of Discharge: Treatments to Date: 3 Cancellations to Date: 0 No Shows to Date: 0 Discharge Status: Achieved Goals Improved Function Independent with HEP Discharge Summary: Pt was re-assessed in Hallpike and Roll Test and was (-) for sx and nystagmus. Reviewed vestibular exercises for HEP of smooth pursuits, saccades, tracking, and VOR in sitting. She reports increased in sx with smooth pursuits. Reviewed progression of increased speed of head turns and/or duration at home. She has no further questions and feels that she can do this at home as she has done these exercises in the past. Kept chart open for 30 days in case of recurrence of BPPV. Electronically signed by: Chasity Leong PT Please sign and return to therapist. Thank you for your referral.
== END 2021-08-24 12:44 | disposition home or self-care (01) ==
LOC: HO.PTCHIC 07:00
PROVIDERS: PCP Internal Medicine; Visit Provider Internal Medicine
DX: R42 Dizziness and giddiness (principal)
CPT/HCPCS: 95992; 97110; 97112; 97162

== ENCOUNTER 2021-07-27 09:25 | Outpatient (REF) | payer OTHER, SELFPAY ==
[2021-07-27 12:13] LABS: Alanine Aminotransferase 10 U/L (0-31); Albumin Level 4.2 g/dL (3.5-5.0); Alkaline Phosphatase 55 U/L (39-117); Aspartate Amino Transferase 12 U/L (5-31); Bilirubin Direct 0.2 mg/dL (0.0-0.5); Bilirubin Total 0.5 mg/dL (0.0-1.0); C Reactive Protein 0.48 mg/dL (< or = 0.50); Lipase 10 U/L (8-78)
[2021-07-27 12:25] LABS: TSH reflex Free T4 0.85 uIU/mL (0.32-4.0)
[2021-07-27 14:45] LABS: Folate 17.9 ng/mL (> or = 4.0)
[2021-07-27 15:39] LABS: Vitamin B12 365 pg/mL (200-900)
[2021-07-28 14:58] LABS: H Pylori Breath Test Negative (Negative)
[2021-07-30 10:25] LABS: Transglutaminase Ab IgG <1.0 U/mL; Transglutaminase IgA <1.0 U/mL
[2021-08-02 13:56] LABS: Vitamin D 25-OH, D2 <4 ng/mL; Vitamin D 25-OH, D3 38 ng/mL; Vitamin D 25-OH, Total 38 ng/mL (30-100)
== END 2021-07-27 09:26 | disposition home or self-care (01) ==
LOC: HO.LAB 09:25
PROVIDERS: PCP Internal Medicine; Referring Provider Internal Medicine; Visit Provider Nurse Practitioner Family
DX: K58.0 Irritable bowel syndrome with diarrhea (principal); R10.11 Right upper quadrant pain; K58.9 Irritable bowel syndrome, unspecified; R14.0 Abdominal distension (gaseous); K21.9 Gastro-esophageal reflux disease without esophagitis; Z12.11 Encounter for screening for malignant neoplasm of colon
CPT/HCPCS: 36415; 80076; 82306; 82607; 82746; 83013; 83690; 84443; 86140; 86364; 99202

== ENCOUNTER → 2021-09-07 09:20 | Outpatient (BNVA) | payer OTHER, SELFPAY | PROVIDERS: PCP Internal Medicine; Referring Provider Internal Medicine; Visit Provider Nurse Practitioner Family | DX: K58.2 Mixed irritable bowel syndrome (principal); K21.9 Gastro-esophageal reflux disease without esophagitis; R14.0 Abdominal distension (gaseous) | CPT/HCPCS: 99212 ==

== ENCOUNTER 2021-10-04 18:24 | Outpatient (REF) | payer OTHER, SELFPAY ==
[2021-10-04 19:05] LABS: Influenza A PCR NEGATIVE (Negative); Influenza B PCR NEGATIVE (Negative); Resp Syncy Virus RNA Qual PCR NEGATIVE (Negative); SARS COV2 PCR INHOUSE NEGATIVE (Negative)
== END 2021-10-04 18:25 | disposition home or self-care (01) ==
LOC: HO.LNP 18:24
PROVIDERS: Visit Provider Internal Medicine
DX: R43.9 Unspecified disturbances of smell and taste (principal); Z20.822 Contact with and (suspected) exposure to COVID-19
CPT/HCPCS: 0241U

== ENCOUNTER 2021-10-07 09:51 | Outpatient (REF) | payer OTHER, SELFPAY ==
--- NOTE | ~2021-10-07 | US_ITS ---
EXAMINATION: US ABDOMEN COMPLETE CLINICAL INFORMATION: Unspecified abdominal pain. COMPARISON: CT abdomen and pelvis 03/01/2020. Ultrasound abdomen 05/03/2018. Renal ultrasound 02/04/2015. TECHNIQUE: Real-time imaging of the abdominal viscera. FINDINGS: PANCREAS: Normal. ABDOMINAL AORTA: The proximal, mid, and distal segments are normal in caliber. INFERIOR VENA CAVA: Visualized portions are normal. LIVER: The liver is normal in size. The liver contour is normal. There is diffuse increased liver parenchymal echogenicity, consistent with hepatic steatosis. No focal hepatic lesion. There is no intrahepatic biliary duct dilatation seen. GALLBLADDER: Echogenic bile. The gallbladder is physiologically distended without evidence of stones, polyps, wall thickening or pericholecystic fluid. COMMON BILE DUCT: Normal in caliber measuring 0.4 cm in diameter. RIGHT KIDNEY: Normal. No hydronephrosis. No renal calculi or focal parenchymal lesions. The kidney measures 10.7 cm in maximum dimension. LEFT KIDNEY: Absent. SPLEEN: Normal. The spleen measures 11.4 cm in maximum dimension. FREE FLUID: None. US/US abdomen complete IMPRESSION: Gallbladder sludge. No inflammatory changes. Mild hepatic steatosis.
== END 2021-10-07 09:52 | disposition home or self-care (01) ==
LOC: HO.HMGCX 09:51
PROVIDERS: PCP Internal Medicine; Visit Provider Nurse Practitioner Family
DX: R10.9 Unspecified abdominal pain (principal)
CPT/HCPCS: 76700

== ENCOUNTER 2021-10-08 13:38 | Outpatient (REF) | payer OTHER, SELFPAY ==
[2021-10-08 18:18] LABS: CDiff Gene PCR NEGATIVE (Negative)
[2021-10-08 18:27] LABS: Leukocytes Stool Qualitative MOD: 3-9/OIF (NEGATIVE)
== END 2021-10-08 13:39 | disposition home or self-care (01) ==
LOC: HO.HMGCLNP 13:38
PROVIDERS: Visit Provider Nurse Practitioner Family
DX: R19.7 Diarrhea, unspecified (principal)
CPT/HCPCS: 87045; 87046; 87177; 87209; 87493; 89055

== ENCOUNTER 2021-11-06 10:18 | Outpatient (REF) | payer OTHER, SELFPAY ==
--- NOTE | ~2021-11-06 | MM_ITS ---
EXAMINATION: MM SCREENING DIGITAL BREAST TOMOSYNTHESIS, BILATERAL CLINICAL INFORMATION: Screening. Asymptomatic. The lifetime risk of breast cancer based on the Tyrer-Cuzick Model is 4%. COMPARISON: Mammography: 10/29/2020, 08/20/2019, 08/16/2018 TECHNIQUE: Digital breast tomosynthesis is performed in both the craniocaudal and mediolateral oblique views along with computer-aided detection (CAD). Synthesized 2D images are generated from the tomosynthesis. FINDINGS: The breasts are heterogeneously dense, which may obscure small masses (ACR BI-RADS breast composition Category c). There are no significant masses, abnormal calcifications, or other abnormalities. Breast tissue composition borders on average fibroglandular. Parenchymal pattern is similar to prior studies. No developing density. No significant changes. MM/MM tomosynthesis screening BI IMPRESSION: No mammographic evidence of malignancy. ASSESSMENT: BI-RADS 1: Negative RECOMMENDATION: Routine annual mammography screening. This patient's information was entered into a reminder system with a target due date for their next mammogram.
== END 2021-11-06 10:19 | disposition home or self-care (01) ==
LOC: HO.MAMMO 10:18
PROVIDERS: Visit Provider Internal Medicine
DX: Z12.31 Encounter for screening mammogram for malignant neoplasm of breast (principal)
CPT/HCPCS: 77063; 77067

== ENCOUNTER 2022-02-28 08:56 | Outpatient (REF) | payer OTHER, SELFPAY ==
[2022-02-28 11:24] LABS: MANUAL DIFF FLAG NO
[2022-02-28 11:43] LABS: Basophils Absolute Auto 0.1 X10*3/uL (0.0-0.2); Basophils Percent Auto 0.9 % (0-2); Eosinophils Absolute Auto 0.2 X10*3/uL (0.0-0.4); Eosinophils Percent Auto 3.1 % (0-4); Hematocrit 41.1 % (37.0-47.0); Hemoglobin 13.2 g/dl (12.0-16.0); Imm Gran Abs Auto 0.01 X10*3/uL (0.00-0.03); Imm Gran Pct Auto 0.2 % (0.0-0.4); Lymphocytes Percent Auto 36.3 % (20-40); Mean Corpuscular HGB Conc 32.1 g/dl (31.0-35.0); Mean Corpuscular Hemoglobin 29.5 pg (27.0-33.0); Mean Corpuscular Volume 91.7 fL (80.0-98.0); Mean Platelet Volume 10.5 fL (9.4-12.3); Monocytes Absolute Auto 0.4 X10*3/uL (0.1-1.2); Monocytes Percent Auto 7.8 % (2-11); Neutrophils Absolute Auto 2.8 x10*3/uL (2.0-8.3); Neutrophils Percent Auto 51.7 % (45-73); Platelet Count 214 X10*3/uL (160-400); Red Blood Count 4.48 X10*6/uL (4.20-5.50); Red Cell Distribution Width 12.8 % (11.0-16.0); White Blood Count 5.4 X10*3/uL (4.8-10.8)
[2022-02-28 12:11] LABS: Alanine Aminotransferase 10 U/L (0-31); Albumin Level 4.1 g/dL (3.5-5.0); Alkaline Phosphatase 47 U/L (39-117); Anion Gap 15 (12-20); Aspartate Amino Transferase 14 U/L (5-31); Bilirubin Total 0.6 mg/dL (0.0-1.0); Blood Urea Nitrogen 17 mg/dL (9-16); Calcium 9.2 mg/dL (8.4-10.2); Carbon Dioxide 23 mmol/L (22-29); Chloride 110 mmol/L (96-108); Cholesterol 184 mg/dL; Estimated Glomerular Filt Rate > 60; Glucose Fasting 90 mg/dL (60-99); HDL Cholesterol 81 mg/dL; LDL Cholesterol Calculated 92 mg/dl; Potassium 4.6 mmol/L (3.3-5.1); Sodium 143 mmol/L (135-145); Total Protein 6.7 g/dL (6.5-8.0); Triglycerides 56 mg/dL
[2022-02-28 12:23] LABS: Folate 12.5 ng/mL (> or = 4.0); Vitamin B12 263 pg/mL (200-900)
[2022-02-28 12:31] LABS: TSH reflex Free T4 1.32 uIU/mL (0.32-4.0); Vitamin D 25-OH Total 42.3 ng/mL (>30)
== END 2022-02-28 08:57 | disposition home or self-care (01) ==
LOC: HO.HMGCLDS 08:56
PROVIDERS: PCP Internal Medicine; Visit Provider Internal Medicine
DX: Z00.01 Encounter for general adult medical examination with abnormal findings (principal); R07.9 Chest pain, unspecified; K21.9 Gastro-esophageal reflux disease without esophagitis; E89.40 Asymptomatic postprocedural ovarian failure
CPT/HCPCS: 36415; 80053; 80061; 82306; 82607; 82746; 84443; 85025

== ENCOUNTER 2022-03-15 08:52 | Outpatient (REF) | payer OTHER, SELFPAY | END 2022-03-15 08:53 | disposition home or self-care (01) | LOC: HO.LAB 08:52 | PROVIDERS: Visit Provider Nurse Practitioner Family | DX: N39.0 Urinary tract infection, site not specified (principal) | CPT/HCPCS: 87086; 87088; 87186 ==

== ENCOUNTER → 2022-03-18 15:46 | Outpatient (BNVA) | payer OTHER, SELFPAY | PROVIDERS: PCP Internal Medicine; Visit Provider Nurse Practitioner Family | DX: Z01.818 Encounter for other preprocedural examination (principal); K21.9 Gastro-esophageal reflux disease without esophagitis; K58.2 Mixed irritable bowel syndrome | CPT/HCPCS: 99212 ==

== ENCOUNTER 2022-09-17 10:10 | Outpatient (REF) | payer OTHER, SELFPAY ==
[2022-09-17 11:14] LABS: Hematocrit 42.1 % (37.0-47.0); Hemoglobin 13.5 g/dl (12.0-16.0); Mean Corpuscular HGB Conc 32.1 g/dl (31.0-35.0); Mean Corpuscular Hemoglobin 29.2 pg (27.0-33.0); Mean Corpuscular Volume 90.9 fL (80.0-98.0); Mean Platelet Volume 10.6 fL (9.4-12.3); Platelet Count 235 X10*3/uL (160-400); Red Blood Count 4.63 X10*6/uL (4.20-5.50); Red Cell Distribution Width 12.5 % (11.0-16.0); White Blood Count 4.5 X10*3/uL (4.8-10.8)
[2022-09-17 11:41] LABS: Alanine Aminotransferase 19 U/L (0-31); Albumin Level 4.2 g/dL (3.5-5.0); Alkaline Phosphatase 52 U/L (39-117); Anion Gap 12 (12-20); Aspartate Amino Transferase 17 U/L (5-31); Bilirubin Direct < 0.2 mg/dL (0.0-0.5); Bilirubin Total 0.5 mg/dL (0.0-1.0); Blood Urea Nitrogen 22 mg/dL (9-16); C Reactive Protein 0.21 mg/dL (< or = 0.50); Calcium 9.4 mg/dL (8.4-10.2); Carbon Dioxide 25 mmol/L (22-29); Chloride 111 mmol/L (96-108); Cholesterol 175 mg/dL; Estimated Glomerular Filt Rate > 60; Glucose Random 89 mg/dL (60-115); HDL Cholesterol 66 mg/dL; LDL Cholesterol Calculated 98 mg/dl; Potassium 4.4 mmol/L (3.3-5.1); Rheumatoid Factor < 13.0 IU/mL (<15.0); Sodium 144 mmol/L (135-145); Total Protein 6.7 g/dL (6.5-8.0); Triglycerides 58 mg/dL
[2022-09-17 11:54] LABS: Erythrocyte Sedimentation Rate 8 MM/HR (0-20)
[2022-09-21 20:29] LABS: CK-BB None Detected (None Detected); CK-MB 0 % (<5); CK-MM 100 % (95-100); Creatine Kinase,Total,Serum 35 U/L (29-143)
== END 2022-09-17 10:11 | disposition home or self-care (01) ==
LOC: HO.HMGCLDS 10:10
PROVIDERS: PCP Internal Medicine; Visit Provider Internal Medicine
DX: R53.83 Other fatigue (principal); I10 Essential (primary) hypertension
CPT/HCPCS: 36415; 80048; 80061; 80076; 82552; 85027; 85652; 86140; 86431

== ENCOUNTER → 2022-10-26 08:38 | Outpatient (BNVA) | payer OTHER, SELFPAY | PROVIDERS: PCP Internal Medicine; Visit Provider Psychiatry & Neurology Neurology | DX: M62.838 Other muscle spasm (principal); R25.1 Tremor, unspecified | CPT/HCPCS: 99202 ==

== ENCOUNTER 2022-12-29 16:20 | Outpatient (REF) | payer OTHER, SELFPAY ==
--- NOTE | ~2022-12-29 | MM_ITS ---
EXAMINATION: MM SCREENING DIGITAL BREAST TOMOSYNTHESIS, BILATERAL CLINICAL INFORMATION: Screening. Asymptomatic. The lifetime risk of breast cancer based on the Tyrer-Cuzick Model is 4.4%. COMPARISON: Mammography: This study is compared to prior mammograms dating back to 2017. TECHNIQUE: Digital breast tomosynthesis is performed in both the craniocaudal and mediolateral oblique views along with computer-aided detection (CAD). Synthesized 2D images are generated from the tomosynthesis. FINDINGS: The breasts are heterogeneously dense, which may obscure small masses (ACR BI-RADS breast composition Category c). There are no significant masses, abnormal calcifications, or other abnormalities. MM/MM tomosynthesis screening BI IMPRESSION: No mammographic evidence of malignancy. ASSESSMENT: BI-RADS BI-RADS 1 - Negative RECOMMENDATION: Routine annual mammography screening. 1 year F/U This patient's information was entered into a reminder system with a target due date for their next mammogram.
== END 2022-12-29 16:21 | disposition home or self-care (01) ==
LOC: HO.MAMMO 16:20
PROVIDERS: PCP Internal Medicine; Visit Provider Internal Medicine
DX: Z12.31 Encounter for screening mammogram for malignant neoplasm of breast (principal)
CPT/HCPCS: 77063; 77067

== ENCOUNTER → 2022-12-29 16:30 | Outpatient (BNV) | payer OTHER, SELFPAY | PROVIDERS: PCP Internal Medicine; Visit Provider Radiology Diagnostic Radiology | DX: Z12.31 Encounter for screening mammogram for malignant neoplasm of breast (principal) | CPT/HCPCS: 77063; 77067 ==

== ENCOUNTER 2023-01-16 08:02 | Outpatient (AMB) | payer OTHER, SELFPAY ==
--- NOTE | 2023-01-16 08:37 | AM.OFFWIN_ITS ---
Intake Vital Signs 01/16/23 08:40 BP 110/72 Blood Pressure Location Rt brachial Position Sitting Pulse 66 Pulse Source Pulse Oximeter Pulse Oximetry (%) 98 Oxygen Delivery Method Room Air Intake Visit Reasons: EP, Anxiety Intake Note: Patient here for very bad anxiety due to a break up, she states it is just really really bad. Patient Tobacco Use Status: Never used Tobacco Allergies prochlorperazine [From COMPAZINE] Allergy (Severe, Verified 01/16/23 08:39) HIGH BP, AND HR EFFECTED ALSO TACKYCARDIA shellfish derived [SHELLFISH DERIVED] Allergy (Severe, Verified 01/16/23 08:39) ANAPHYLAXIS ciprofloxacin [CIPROFLOXACIN] Allergy (Unknown, Verified 01/16/23 08:39) HIVES Compazine Allergy (Unknown, Verified 01/16/23 08:39) tachycardia Do you need a note to return to daycare/school/sports/work: Yes HPI EP, Anxiety HPI Details 52-year-old female presents to the office for a sick visit. Patient is distraught and tense. Her boyfriend ended a 5 year relationship. Patient feels very anxious and is having frequent crying spells. 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 She would like something for her nerves. Her primary care provider is away. [facility] Medical History (Updated 01/16/23 @ 09:06 by Jj Maurice MD) Anxiety and depression Chronic GERD Complex regional pain syndrome i of right lower limb Hallux varus (acquired), right foot Hammer toe of right foot Intermittent chest pain Limb tremor Muscle spasm Pneumonia due to COVID-19 virus Psoriasis Surgical menopause Surgical History History of bunionectomy History of section History of esophagogastroduodenoscopy (EGD) History of lumpectomy of right breast History of total abdominal hysterectomy Hx of colonoscopy Family History Father CAD (coronary artery disease) HTN (hypertension) Hyperlipidemia Myocardial infarction Mother Asthma Rheumatoid arthritis Hypoglycemia Maternal Grandmother Diabetes mellitus Asthma CAD (coronary artery disease) Maternal Aunt Diabetes mellitus Brother No problems noted. Sister No problems noted. Son No problems noted. Daughter No problems noted. Social History Housing: House Alcohol intake: current Alcohol intake frequency: holidays/special occasions only Alcohol type: wine and hard liquor Patient Tobacco Use Status: Never used Tobacco e-Cigarette/Vaping Use: Never Used service: No Current occupational status: employed Cognitive needs: No Hearing needs: No Vision needs: No Physical Exam Vital Signs: Last Vital Signs Pulse 66 01/16/23 08:40 BP 110/72 01/16/23 08:40 Pulse Ox 98 01/16/23 08:40 Oxygen Delivery Method Room Air 01/16/23 08:40 Const General: cooperative and healthy appearing Nutritional Appearance: well nourished Orientation/consciousness: patient oriented x3 Limitations: no limitations HEENT Head: Yes normal to inspection Eyes General: appearance normal, both eyes and all related structures Neck Neck: Yes normal visual inspection Chest Chest palpation & inspection: normal palpation of entire chest wall Resp Effort & Inspection: normal respiratory effort Neuro General: patient oriented x3 Assessment & Plan Assessment & Plan (1) Generalized anxiety disorder: Code(s): F41.1 - Generalized anxiety disorder Plan: 15 minutes spent on counseling the patient. Community navigation contacted and behavioral cell was is provided. Lorazepam called in. Medications: New lorazepam 0.5 mg PO BEDTIME PRN 10 tabs 0RF anxiety Coding Level of Care Code Est Pt Level 4 (45201) Diagnoses Generalized anxiety disorder F41.1
[2023-01-16 08:40] VITALS: BP 110/72; PULSE 66; O2SAT 98
== END 2023-01-16 09:30 | disposition home or self-care (01) ==
PROVIDERS: PCP Internal Medicine; Visit Provider Internal Medicine
DX: F41.1 Generalized anxiety disorder (principal)
CPT/HCPCS: 99214

== ENCOUNTER 2023-03-01 08:04 | Outpatient (AMB) | payer OTHER, SELFPAY ==
[2023-03-01 08:13] VITALS: BP 128/82; PULSE 64; O2SAT 97; BMI 27.1
--- NOTE | 2023-03-01 08:13 | A.OFFPC_ITS ---
Vital Signs 03/01/23 08:13 Height 4 ft 11 in Weight 134 lb BMI 27.1 BP 128/82 Blood Pressure Location Rt brachial Position Sitting Pulse 64 Pulse Source Pulse Oximeter Pulse Oximetry (%) 97 Oxygen Delivery Method Room Air Intake Visit Reasons: PE Intake Note: Pt is here today for her PE Allergies prochlorperazine [From COMPAZINE] Allergy (Severe, Verified 03/01/23 08:21) HIGH BP, AND HR EFFECTED ALSO TACKYCARDIA shellfish derived [SHELLFISH DERIVED] Allergy (Severe, Verified 03/01/23 08:21) ANAPHYLAXIS ciprofloxacin [CIPROFLOXACIN] Allergy (Unknown, Verified 03/01/23 08:21) HIVES Medication List - Last Reconciled 03/01/23 by Nohelia Cobb MD adalimumab (Humira(CF) Pen) inject two - 80 mg/0.8 mL pens on Day 1; inject one - 80 mg/0.8 mL pen on Day 15 of therapy subcut estradiol 0 vag rings vaginal magnesium oxide 400 mg PO BEDTIME Tobacco use date assessed: 03/01/23 Dental Screening Dental Screen Date: 03/01/23 Did you have a dental visit in the last 12 months?: Yes Did you have a dental problem in the last 6 months where you did not have access to dental care?: No Was dental information given to patient?: Patient has dentist HPI PE HPI Details 53-year-old lady with chronic GERD, generalized anxiety disorder, complex regional pain syndrome of right lower limb, here today for her physical exam. She had recent fasting labs done August 2022 which showed no anemia, normal electrolytes, renal function, lipid panel fasting glucose and negative rheumatoid factor. She is up-to-date with her screening mammogram, done December 2022 with negative findings. Has an appointment for her screening colonoscopy to be done at [place] in May [address] Hou for her pelvic exam and still gets Pap smears, has history abnormal Pap in the past status post LEEP. Declines getting any COVID vaccines, has had 2 COVID infections already peer due for her tetanus diphtheria booster, and gets flu shots at work at [employer] She has meralgia paresthetica, now having intermittent episodes of right foot pain, patient states she will be scheduling an appointment again for follow-up with Dr. Lucero. [facility] Medical History (Updated 03/01/23 @ 09:17 by Nohelia Cobb MD) Chronic GERD Complex regional pain syndrome i of right lower limb Congenital absence of left kidney COVID-19 vaccine series declined Hallux varus (acquired), right foot Hammer toe of right foot History of abnormal cervical Pap smear History of asthma History of eczema History of uterine prolapse Muscle spasm Pneumonia due to COVID-19 virus Psoriasis Right-sided sensorineural hearing loss Surgical menopause Surgical History History of bunionectomy History of section History of esophagogastroduodenoscopy (EGD) History of lumpectomy of right breast History of total abdominal hysterectomy Hx of colonoscopy Family History Father CAD (coronary artery disease) HTN (hypertension) Hyperlipidemia Myocardial infarction Mother Asthma Rheumatoid arthritis Hypoglycemia Maternal Grandmother Diabetes mellitus Asthma CAD (coronary artery disease) Maternal Aunt Diabetes mellitus Brother No problems noted. Sister No problems noted. Son No problems noted. Daughter No problems noted. Social History Housing: House Alcohol intake: current Alcohol intake frequency: holidays/special occasions only Alcohol type: wine and hard liquor Patient Tobacco Use Status: Never used Tobacco e-Cigarette/Vaping Use: Never Used service: No Current occupational status: employed Cognitive needs: No Hearing needs: No Vision needs: No Female Reproductive History Menstrual Menopause type: surgical Questionnaire PHQ-9 Over the last 2 weeks, how often have you been bothered by any of the following problems? 1. Little interest or pleasure in doing things: not at all 2. Feeling down, depressed, or hopeless: not at all 3. Trouble falling or staying asleep, or sleeping too much: several days 4. Feeling tired or having little energy: more than half the days 5. Poor appetite or overeating: not at all 6. Feeling bad about yourself - or that you are a failure or have let yourself or your family down: not at all 7. Trouble concentrating on things, such as reading the newspaper or watching television: not at all 8. Moving or speaking so slowly that other people could have noticed. Or the opposite - being so fidgety or restless that you have been moving around a lot more than usual: not at all 9. Thoughts that you would be better off or of hurting yourself in some way: not at all Total score: 3 Depression Screening Interpretation: Negative 08788 - PHQ-9 Billing: Yes Source: Developed by Drs. Geronimo Rios, Juliann Marr, Fredi Beltran and colleagues, with an educational ariel from [employer]. Thrive Questionnaire Date Thrive assessed: 02/28/22 I am a: Patient What is your living situation today?: I have a steady place to live Within the past 12 months, did the food you bought not last and you didn't have the money to get more?: Never true Within the past 12 months, did you worry whether your food would run out before you got money to buy more?: Never true Do you have trouble paying for medicines?: No Do you have trouble getting transportation to medical appointments?: No Do you have trouble paying your heating and electricity bill?: No Do you have trouble taking care of your child, family member or friend?: No Do you have trouble with day-to-day activities such as bathing, preparing meals, shopping, managing finances, etc.?: No Are you currently unemployed and looking for a job?: No Are you interested in more education?: No AUDIT C Alcohol Use Questionnaire (AUDIT-C) 1. How often do you have a drink containing alcohol?: Monthly or less 2. How many drinks containing alcohol do you have on a typical day when you are drinking?: 1 or 2 3. How often do you have six or more drinks on one occasion?: Never Total Score: 1 SHI-7 AMB Questionnaire SHI-7 Date SHI - 7 assessed: 03/01/23 Feeling nervous, anxious, or on edge: 1 = Several days Not being able to stop or control worryin = Not at all Worrying too much about different things: 0 = Not at all Trouble relaxin = Not at all Being so restless that it is hard to sit still: 0 = Not at all Becoming easily annoyed or irritable: 0 = Not at all Feeling afraid as if something awful might happen: 0 = Not at all Total SHI-7 score (0-4 normal; 5-9 mild; 10-14 moderate; 15-21 severe): 1 Source: Developed by Drs. Geronimo Rios, Juliann Marr, Fredi Beltran and colleagues, with an educational ariel from [employer]. SHI-7 Assessment Billing SHI-7 Assessment Tool: SHI-7 Assessment 83945 Review of Systems Const Denies body aches, Denies fatigue, Denies headache(s), Denies malaise, Denies weakness, Denies weight gain and Denies weight loss Eyes Reports no additional complaints ENT Denies dysphagia, Denies headache(s), Reports nasal congestion, Reports post nasal drip, Denies sinus pressure and Denies sore throat Card Denies irregular heart rhythm, Denies lightheadedness, Denies radiating jaw, neck or arm pain and Denies dyspnea Resp Reports chest congestion and Denies dyspnea GI Denies abdominal pain, Denies belching, Denies melena, Denies bloating, Denies dysphagia, Denies excessive flatus, Denies heartburn, Denies loose stools and Denies vomiting Reports no additional complaints Musc Details: Pain in right foot Skin/Breast Denies lesions and Denies rash Neuro Reports no additional complaints, Denies headache(s) and Denies weakness Psych Reports no additional complaints Endo Reports no additional complaints and Denies fatigue Enmanuel/Lymph Reports no additional complaints Aller/Immun Reports seasonal rhinorrhea Physical exam (Primary Care) Vital Signs: Last Vital Signs Pulse 64 03/01/23 08:13 BP 128/82 03/01/23 08:13 Pulse Ox 97 03/01/23 08:13 Oxygen Delivery Method Room Air 03/01/23 08:13 BMI result Body Mass Index 27.1 Tobacco/Smoking Status: Tobacco use Status Tobacco use date assessed 03/01/23 03/01/23 08:15 Patient Tobacco Use Status Never used Tobacco 03/01/23 08:15 e-Cigarette/Vaping Use Never Used 03/01/23 08:15 Depression Screening Interpretation: Negative Thrive Assessment: Date of Thrive Assessment Date Thrive assessed 02/28/22 03/01/23 08:15 Const General: cooperative, comfortable, no acute distress, well developed, alert and Physically active Nutritional Appearance: overweight Orientation/consciousness: patient oriented x3 Limitations: no limitations HENMT Other: Nonpalpable thyroid Head: Yes normocephalic and Yes atraumatic Ears: external ears normal, TM's normal bilaterally, EAC's normal and other (Pustule on right pinna) General nose exam: Normal external nose present and Abnormal mucous membranes and turbinates present pale Face and sinus: Yes sinuses nontender and Yes face symmetric Mouth: Normal oral and palatal mucosa present, lip normal, tongue normal, oropharynx normal and moist mucous membranes Throat: Yes posterior oropharynx normal Eyes General: appearance normal, both eyes and all related structures Periorbital: periorbital findings normal Eyelids: Yes eyelids normal Conjunctivae: conjunctivae normal Sclerae: sclerae normal Pupils: Equal, round and reactive pupils present EOM: EOMs intact bilaterally Neck Neck: Yes full ROM, Yes no lymphadenopathy and Yes supple Chest Breast/axilla inspection: normal inspection of the breasts Breast/axilla palpation: normal palpation of the breasts Resp Effort & Inspection: normal respiratory effort and able to speak in complete sentences Auscultation: clear to auscultation bilaterally Cardio Rate: regular rate Rhythm: regular rhythm Heart sounds: S1 normal heart sound present and S2 normal heart sound present GI Inspection: Yes normal to inspection Palpation (GI): Soft to palpation, nontender, no guarding and no masses Auscultation: normal bowel sounds General: Yes no CVA tenderness and Yes deferred (sees Dr Hou) Back/Spine/Pelvis Back: no CVA tenderness and No back tenderness Skin Other: Pustule on right pinna Rashes: no rashes Neuro General: patient oriented x3, gait normal, tone normal, moves all extremities, Normal light touch and pain sensation, no focal motor deficits and CN's II-XI intact bilaterally Cranial nerves: Yes Equal, round and reactive pupils present Extrem General: Yes full ROM, Yes no pedal edema, Yes no calf tenderness and Yes normal gait Psych Appearance: grossly normal and well kempt Mental Status: mental status grossly normal Speech and movement: Normal speech and movement present Affect: normal affect Attitude: cooperative Thought process: Normal thought process present Thought content: Normal thought content present Results Reviewed Results Reviewed: ENTERED: 09/17/22-[address]: Nohelia Cobb MD ORDERED: CBC No Diff Test Result Flag Reference Site WBC 4.5 L 4.8-10.8 X10*3/uL RBC 4.63 4.20-5.50 X10*6/uL HGB 13.5 12.0-16.0 g/dl HCT 42.1 37.0-47.0 % MCV 90.9 80.0-98.0 fL MCH 29.2 27.0-33.0 pg MCHC 32.1 31.0-35.0 g/dl RDW 12.5 11.0-16.0 % PLT 235 160-400 X10*3/uL MPV 10.6 9.4-12.3 fL NRBC Pct Auto 0.0 0.0-0.2 /100WBC NRBC Abs Auto 0.000 0.0-0.012 X10*3/uL ENTERED: 09/17/22-[address]: Nohelia Cobb MD ORDERED: Liver Panel, BMP, C Reactive Prot, Lipid Panel, RF Test Result Flag Reference Site Sodium 144 135-145 mmol/L Potassium 4.4 3.3-5.1 mmol/L CL 111 H 96-108 mmol/L CO2 25 22-29 mmol/L Gap 12 12-20 BUN 22 H 9-16 mg/dL Creat 0.83 0.5-1.4 mg/dL EGFR > 60 NOTE: For -Macanese individuals, multiply the result by 1.210. Chronic Kidney Disease: Estimated GFR < 60 mL/ min/1.73m2 Severe Kidney Disease: Estimated GFR < 15 mL/min/1.73m2 Glucose, Random 89 60-115 mg/dL CA 9.4 8.4-10.2 mg/dL Total Bili 0.5 0.0-1.0 mg/dL Direct Bili < 0.2 0.0-0.5 mg/dL AST (GOT) 17 5-31 U/L ALT (GPT) 19 0-31 U/L CRP 0.21 < or = 0.50 mg/dL Protein, Total 6.7 6.5-8.0 g/dL Alb 4.2 3.5-5.0 g/dL Triglyceride 58 mg/dL Desirable Triglyceride: less than 150 mg/dL Borderline High Triglyceride 150-199 mg/dL High Triglyceride: 200-499 mg/dL Very High Triglyceride: greater than or equal to 5OO mg/dL Chol 175 mg/dL Desirable Cholesterol: less than 200 mg/dL Borderline High Cholesterol: 200-239 mg/dL High Cholesterol: greater than 239 mg/dL LDL Calculated 98 mg/dl Desirable LDL: less than 100 mg/dL Near Optimal/Above Optimal LDL: 110-129 mg/dL Borderline High LDL: 130-159 mg/dL High LDL: 160-189 mg/dL Very High LDL: greater than or equal to 190 mg/dL HDL 66 mg/dL Desirable HDL: greater than 40 mg/dL Note: This HDL assay may give artificially low results in patients with liver disease. Alk Phos 52 39-117 U/L Rheum Factor < 13.0 <15.0 IU/mL Assessment and Plan Assessment & Plan (1) Annual visit for general adult medical examination with abnormal findings: Code(s): Z00.01 - Encounter for general adult medical examination with abnormal findings Plan: Reviewed recent fasting labs patient. Recommended dental visit every 6 months and regular eye exams, at least every 2 years. Take adequate calcium in diet and vitamin-D 3 at 2000 IU per cap once a day, in addition to weight-bearing exercises to help maintain good muscle tone and weight control. Instructed to do self-breast exam, and continue to get yearly mammogram, currently up-to-date. She sees Dr. Hou for her cervical cancer screening/pelvic exam. Has an appointment for her screening colonoscopy this May 2023 at [facility]. Patient does not want to get any new COVID vaccine, gets yearly flu shot at work, reminded to get her tetanus diphtheria booster and recommended to get shingles vaccination (2) Muscle spasm: Comment: Part of CRPS generalized pain syndrome Code(s): M62.838 - Other muscle spasm Plan: Prescription sent for magnesium oxide 400 mg per tablet to take once a day (3) Chronic GERD: Code(s): K21.9 - Gastro-esophageal reflux disease without esophagitis Plan: Currently being followed by [facility], currently controlled with avoidance of dietary triggers (4) Psoriasis: Comment: Currently on Humira , sees Dermatology Code(s): L40.9 - Psoriasis, unspecified Plan: Currently on Humira (5) Complex regional pain syndrome i of right lower limb: Comment: Followed by Dr. Lucero Code(s): G90.521 - Complex regional pain syndrome I of right lower limb Plan: Patient states that she will schedule another appointment for follow-up with Dr. Lucero (6) Surgical menopause: Code(s): E89.40 - Asymptomatic postprocedural ovarian failure (7) COVID-19 vaccine series declined: Code(s): Z28.21 - Immunization not carried out because of patient refusal; Z28.310 - Unvaccinated for COVID-19 (8) Recurrent bronchospasm: Code(s): J98.09 - Other diseases of bronchus, not elsewhere classified Plan: Likely due to her recent upper respiratory infection with postnasal drainage, advised to take [id number] antihistamines like Zyrtec or loratadine, prescription sent for albuterol sulfate inhaler, 1 inhalation every 4-6 hours as needed for episodes of bronchospasm Medications: New albuterol sulfate 90 mcg/actuation 1 inh inhalation QID PRN 8.5 grams 0RF shortness of breath or wheezing magnesium oxide 400 mg PO DAILY 30 tabs 1RF Coding Level of Care Code Est Pt Prev Care 40-64y(30900) Diagnoses Annual visit for general adult medical examination with abnormal findings Z00.01 Muscle spasm M62.838 Chronic GERD K21.9 Psoriasis L40.9 Complex regional pain syndrome i of right lower limb G90.521 Surgical menopause E89.40 COVID-19 vaccine series declined Z28.21; Z28.310 Recurrent bronchospasm J98.09 Additional Codes SHI-7 Assessment Billing - SHI-7 Assessment Tool: SHI-7 Assessment 62112 ([id number])
== END 2023-03-01 09:10 | disposition home or self-care (01) ==
PROVIDERS: PCP Internal Medicine; Visit Provider Internal Medicine
DX: Z00.00 Encounter for general adult medical examination without abnormal findings (principal); K21.9 Gastro-esophageal reflux disease without esophagitis; E89.40 Asymptomatic postprocedural ovarian failure; M62.838 Other muscle spasm; L40.9 Psoriasis, unspecified; G90.521 Complex regional pain syndrome I of right lower limb; Z28.21 Immunization not carried out because of patient refusal; Z28.310 Unvaccinated for COVID-19; J98.09 Other diseases of bronchus, not elsewhere classified
CPT/HCPCS: 99396

== ENCOUNTER 2023-08-30 22:50 | Emergency (ER) | payer OTHER, SELFPAY ==
--- NOTE | 2023-08-30 | ECG_ITS ---
Test Reason : CHEST PAIN Blood Pressure : / mmHG Vent. Rate : 089 BPM Atrial Rate : 089 BPM P-R Int : 132 ms QRS Dur : 080 ms QT Int : 326 ms P-R-T Axes : 053 027 007 degrees QTc Int : 396 ms Normal sinus rhythm Possible Left atrial enlargement Nonspecific ST and T wave abnormality Borderline ECG No significant changes when compared with the previous EKG of 01 mar 2020 Referred By: Generic ED Physician Electronically Signed By:DAKSHA FERRARI
--- NOTE | ~2023-08-30 | XR_ITS ---
EXAMINATION: XR CHEST CLINICAL INFORMATION: Cough COMPARISON: 01/31/2021 TECHNIQUE: Frontal view of the chest was obtained. FINDINGS: Lung volumes are symmetric. No focal consolidation is seen. No evidence of pneumothorax, pleural effusion, or pulmonary edema. The cardiomediastinal contour is unremarkable. No acute osseous findings are seen. XR/XR chest 1V IMPRESSION: No acute cardiopulmonary findings.
[2023-08-30 22:59] VITALS: BP 167/83; PULSE 86; RESP 16; TEMP 36.8; O2SAT 98; BMI 27.2
--- NOTE | 2023-08-30 23:23 | MHC.EDTECH ---
Patient brought in from triage,changed into hospital attire,placed on the clinical research monitor,labs,and sars/flu/rsv obtained and sen to lab. Patient ambulated to the bathroom with a steady gait,awaiting a urine sample at this time.
[2023-08-30 23:24] LABS: MANUAL DIFF FLAG NO
[2023-08-30 23:26] LABS: Basophils Percent Auto 0.1 % (0-2); Eosinophils Absolute Auto 0.1 X10*3/uL (0.0-0.4); Eosinophils Percent Auto 0.5 % (0-4); Hemoglobin 13.6 g/dl (12.0-16.0); Imm Gran Abs Auto 0.06 X10*3/uL (0.00-0.03); Imm Gran Pct Auto 0.6 % (0.0-0.4); Lymphocytes Absolute Auto 1.4 X10*3/uL (1.2-4.9); Lymphocytes Percent Auto 14.4 % (20-40); Mean Corpuscular HGB Conc 33.2 g/dl (31.0-35.0); Mean Corpuscular Hemoglobin 29.8 pg (27.0-33.0); Mean Corpuscular Volume 89.9 fL (80.0-98.0); Mean Platelet Volume 9.4 fL (9.4-12.3); Monocytes Absolute Auto 0.5 X10*3/uL (0.1-1.2); Monocytes Percent Auto 5.4 % (2-11); Neutrophils Absolute Auto 7.7 x10*3/uL (2.0-8.3); Platelet Count 203 X10*3/uL (160-400); Red Blood Count 4.56 X10*6/uL (4.20-5.50); Red Cell Distribution Width 13.2 % (11.0-16.0); White Blood Count 9.7 X10*3/uL (4.8-10.8)
--- NOTE | 2023-08-30 23:26 | ED_ITS ---
HPI - Chest Pain General Chief Complaint: Chest Pain Stated Complaint: Chest pain/Cough Time Seen by Provider: 08/30/23 23:26 Source: patient Mode of arrival: ambulatory Limitations: no limitations History of Present Illness HPI narrative: 53-year-old female with a history of asthma and psoriasis who presents emergency department for evaluation of throat tightness chest pain, cough, chills. Patient states she was at work at around 13:00 hours when she developed a tightness in her lower throat. At around 16:00 hours she developed a tightness in the center of the chest which she states is been constant since onset. The pain is 7/10. Patient states she developed a cough which is productive of phlegm and chills but no fever. The pain does radiate to her left axilla area. Pain is worse with coughing but not with breathing or movement. She took Tums and Mylanta with no relief for symptoms. She states that when she had COVID she had similar chest pain and she is concerned that she might have pneumonia. Patient does have a history of psoriasis states that the psoriasis in her hands were acting up so she has been on prednisone 40 mg once a day and she is now tapered down to 10 mg. Related Data Home Medications Medication Instructions Recorded Confirmed estradiol 2 mg (7.5 mcg/24 hour) 0 vag ring vaginal 01/01/21 10/26/22 vaginal ring adalimumab 80 mg/0.8 mL See Rx Instructions subcut .COMPLEX 01/16/23 subcutaneous pen kit (Humira(CF) Pen) Previous Rx's Medication Instructions Recorded magnesium oxide 400 mg PO BEDTIME #30 caps 10/26/22 magnesium oxide 400 mg PO DAILY #30 tabs 03/01/23 albuterol sulfate 90 mcg/actuation 1 inh inhalation QID PRN shortness 03/02/23 aerosol inhaler (Ventolin HFA) of breath or wheezing #8.5 grams Allergies Allergy/AdvReac Type Severity Reaction Status Date / Time prochlorperazine Allergy Severe HIGH BP, Verified 08/30/23 22:59 [From COMPAZINE] AND HR EFFECTED ALSO TACKYCARDIA shellfish derived Allergy Severe ANAPHYLAXIS Verified 08/30/23 22:59 [SHELLFISH DERIVED] ciprofloxacin [CIPROFLOXACIN] Allergy Unknown HIVES Verified 08/30/23 22:59 Review of Systems 2 Review of Systems: Yes all other systems are reviewed and are negative [facility] Past Medical History [facility] Narrative: Social history: She denies tobacco use. She drinks alcohol socially. She denies drug use Medical History (Updated 08/31/23 @ 00:18 by Tej Lorenzo MD) COVID-19 vaccine series declined History of eczema Right-sided sensorineural hearing loss History of uterine prolapse History of abnormal cervical Pap smear History of asthma Congenital absence of left kidney Muscle spasm Chronic GERD Pneumonia due to COVID-19 virus Hammer toe of right foot Psoriasis Hallux varus (acquired), right foot Complex regional pain syndrome i of right lower limb Surgical menopause Surgical History Hx of colonoscopy History of esophagogastroduodenoscopy (EGD) History of bunionectomy History of lumpectomy of right breast History of section History of total abdominal hysterectomy Family History Family History Father CAD (coronary artery disease) HTN (hypertension) Hyperlipidemia Myocardial infarction Mother Asthma Rheumatoid arthritis Hypoglycemia Maternal Grandmother Diabetes mellitus Asthma CAD (coronary artery disease) Maternal Aunt Diabetes mellitus Brother No problems noted. Sister No problems noted. Son No problems noted. Daughter No problems noted. Social History Social History Housing: House Alcohol intake: current Alcohol intake frequency: holidays/special occasions only Alcohol type: wine and hard liquor Patient Tobacco Use Status: Never used Tobacco e-Cigarette/Vaping Use: Never Used service: No Current occupational status: employed Cognitive needs: No Hearing needs: No Vision needs: No Physical Exam 2 Vital Signs: Vital Signs: Last Vital Signs Temp 98.3 F 08/30/23 22:59 Pulse 86 08/30/23 22:59 Resp 16 08/30/23 22:59 BP 167/83 H 08/30/23 22:59 Pulse Ox 98 08/30/23 22:59 O2 Del Method Room Air 08/30/23 22:59 BMI result Body Mass Index 27.2 Vital signs did reveal an elevated blood pressure of 167/83 Exam: General: Awake, alert in no distress Head: Normocephalic, atraumatic EENT: PERRL, Lids normal, sclera normal, conjunctiva normal, nose normal , ears normal, throat without erythema or exudates Neck: Supple, no adenopathy Lung: breath sounds symmetric, no wheezing, rales or rhonchi Chest: symmetric movement, nontender Heart: regular rate and rhythm, normal S1, S2 no murmurs or rubs Abdomen: soft, non-tender, nondistended, normal bowel sounds Back: no vertebral tenderness, no CVAT Extremities: no deformities, moves all extremities symmetrically Neuro: Awake, alert, oriented, normal speech, cranial nerves intact, moves all extremities symmetrically Psych: Pleasant, cooperative Medications Administered Generic Name Dose Route Start Last Admin Trade Name Freq PRN Reason Stop Dose Admin Sodium Chloride 1,000 mls @ 999 mls/hr 08/30/23 23:37 08/30/23 23:47 Ns IV 08/31/23 00:37 999 mls/hr .Q1H1M STA Administration Discontinued Medications Generic Name Dose Route Start Last Admin Trade Name Freq PRN Reason Stop Dose Admin Ketorolac Tromethamine 15 mg 08/30/23 23:37 08/30/23 23:46 Ketorolac Tromethamine 15 Mg/Ml Vial IVPUSH 08/30/23 23:38 15 mg ONCE STA Administration Medical Decision Making Medical Decision Making MDM Narrative: 53-year-old female with a history of asthma and psoriasis who presents emergency department for evaluation of throat tightness chest pain, cough, chills. Pain is located in the center of her chest and worse with coughing but not breathing. The pain does radiate to her left axilla area, not relieved with an acids. Patient states the pain feels similar to when she had COVID pneumonia. Vital signs were normal. Physical examination was unremarkable. Differential diagnosis: ?Includes but is not limited to myocardial ischemia, myocardial infarction, musculoskeletal pain, costochondritis, pneumonia, bronchitis, viral syndrome, COVID-19, influenza, RSV Following evaluation was ordered: CBC, CMP, troponin, COVID-19, influenza, RSV, 12 EKG Patient was initially treated with the following: IV insert, normal saline x1 L IV, Toradol 15 mg IV, continuous cardiac monitoring, continuous pulse ox monitoring Course: 00:14 My interpretation patient's laboratory evaluation is as follows: CBC was normal. CMP revealed an elevated bicarb of 31 and elevated BUN of 23 with a normal creatinine. Urinalysis was negative troponin was below detectable limits which is reassuring since the patient has had constant pain since 16:00 hours. Patient's COVID-19, influenza and RSV were negative. EKG was unremarkable. Chest x-ray was unremarkable. This time I believe the patient has a viral syndrome/viral URI and I did discuss this with her. Patient is taking prednisone for her psoriasis therefore she can not take any other anti-inflammatory medications, I did offer narcotic pain medications but she does not want these medicines at this time. Patient was advised to take Tylenol 1000 mg every 6 hours as needed for pain. She will be given a work note to return to work on Monday09/04/2023 Admission/Observation Consideration of admission/observation: Escalation of care including admission/observation considered Lab Data MDM Lab Attestation statement: I reviewed the patient's lab results. 08/30/23 23:20 08/30/23 23:20 Labs: Lab Results 08/30/23 08/30/23 Range/Units 23:20 23:36 WBC 9.7 (4.8-10.8) X10*3/uL RBC 4.56 (4.20-5.50) X10*6/uL Hgb 13.6 (12.0-16.0) g/dl Hct 41.0 (37.0-47.0) % MCV 89.9 (80.0-98.0) fL MCH 29.8 (27.0-33.0) pg MCHC 33.2 (31.0-35.0) g/dl RDW 13.2 (11.0-16.0) % Plt Count 203 (160-400) X10*3/uL MPV 9.4 (9.4-12.3) fL Immature Gran % (Auto) 0.6 H (0.0-0.4) % Neut % (Auto) 79.0 H (45-73) % Lymph % (Auto) 14.4 L (20-40) % [place] % (Auto) 5.4 (2-11) % Eos % (Auto) 0.5 (0-4) % Baso % (Auto) 0.1 (0-2) % Lymph # (Auto) 1.4 (1.2-4.9) X10*3/uL [place] # (Auto) 0.5 (0.1-1.2) X10*3/uL Eos # (Auto) 0.1 (0.0-0.4) X10*3/uL Baso # (Auto) 0.0 (0.0-0.2) X10*3/uL Abs Immat Gran (auto) 0.06 H (0.00-0.03) X10*3/uL Absolute Neuts (auto) 7.7 (2.0-8.3) x10*3/uL Absolute Nucleated RBC 0.000 (0.0-0.012) X10*3/uL Nucleated RBC % (auto) 0.0 (0.0-0.2) /100WBC Sodium 143 (135-145) mmol/L Potassium 3.6 (3.3-5.1) mmol/L Chloride 103 (96-108) mmol/L Carbon Dioxide 31 H (22-29) mmol/L Anion Gap 13 (12-20) BUN 23 H (9-16) mg/dL Creatinine 0.93 (0.5-1.4) mg/dL Estim Creat Clear Calc 56.3 Estimated GFR > 60 Random Glucose 111 (60-115) mg/dL Calcium 10.2 D (8.4-10.2) mg/dL Total Bilirubin 0.4 (0.0-1.0) mg/dL AST 15 (5-31) U/L ALT 31 (0-31) U/L Alkaline Phosphatase 78 (39-117) U/L Troponin I High Sens < 2.7 (<3.5-17.0) ng/L Total Protein 7.4 (6.5-8.0) g/dL Albumin 4.4 (3.5-5.0) g/dL Urine Color Yellow Urine Appearance Clear Urine pH 8.5 (5.0-9.0) Ur Specific [place] 1.020 (1.005-1.025) Urine Protein Negative (Neg-Trace) mg/dL Urine Glucose (UA) Negative (Negative) mg/dL Urine Ketones Negative (Negative) mg/dL Urine Blood Negative (Negative) Urine Nitrite Negative (Negative) Ur Leukocyte Esterase Negative (Negative) Urine RBC 0-2 (0-2) /HPF Urine WBC 0-5 (0-5) /HPF Ur Squamous Epith Cells 0-2 (0-2) /HPF Urine Bacteria None Seen (None Seen) Hyaline Casts 0-2 (0-2) /LPF Influenza Type A (PCR) NEGATIVE (Negative) Influenza Type B (PCR) NEGATIVE (Negative) RSV RNA Qual (PCR) NEGATIVE (Negative) SARS-CoV-2 RNA (RT-PCR) NEGATIVE (Negative) Independent Interpretation I performed an independent interpretation of an: EKG Interpretation: My independent interpretation patient's 12 EKG done at 22:56 hours is as follows: Normal sinus rhythm rate of 89, normal CA interval, QRS duration QTC interval no ST segment elevation, no ST segment depression, inverted T-wave in 3 and V1 no PACs no PVCs My interpretation patient's chest x-ray is as follows: No acute disease Radiology Impression Discussion of test interpretation with radiology: I have reviewed the radiologist's reading. Radiologist Impression: XR chest 1V IMPRESSION: No acute cardiopulmonary findings. Dictated By: Houston Pérez MD Independent Historian Clinical information obtained from an independent historian. History obtained from or confirmed by: Spouse Chronic Conditions Patient?s care impacted by: Other (Psoriasis) Discharge Plan Discharge Clinical Impression: Viral upper respiratory infection, Chest pain Patient Disposition: Home, Self-Care Instructions: Viral Syndrome (ED) Additional Instructions: Your blood work was unremarkable Your EKG was unremarkable Your troponin, marker of heart attack/heart damage was below detectable limits which is very reassuring suggesting that your pain is not caused by heart pain. Your symptoms are consistent with a viral infection. Take Tylenol (acetaminophen) 500 mg pills, 2 pills every 6 hours as needed for pain or fever. Follow-up with your doctor in 2 days. Please return to the emergency department if your symptoms get worse or if you develop any symptoms that are concerning to you. Please see work note Prescriptions: No Action albuterol sulfate [Ventolin HFA] 90 mcg/actuation HFA aerosol inhaler 1 inh inhalation QID PRN (Reason: shortness of breath or wheezing) Qty: 8.5 0RF Estring 2 mg (7.5 mcg /24 hour) ring 0 vag ring vaginal magnesium oxide 400 mg magnesium tablet 400 mg PO DAILY Qty: 30 1RF Humira(CF) Pen 80 mg/0.8 mL pen injector kit See Rx Instructions subcut .COMPLEX Rx Instructions: inject two - 80 mg/0.8 mL pens on Day 1; inject one - 80 mg/0.8 mL pen on Day 15 of therapy subcut magnesium oxide 400 mg magnesium capsule 400 mg PO BEDTIME Qty: 30 6RF Stand Alone Forms: Work/School Release
--- NOTE | 2023-08-30 23:32 | MHC.EDTECH ---
Urine sample obtained and sent to lab.
[2023-08-30 23:38] VITALS: PULSE 89
[2023-08-30 23:38] LABS: Alanine Aminotransferase 31 U/L (0-31); Albumin Level 4.4 g/dL (3.5-5.0); Alkaline Phosphatase 78 U/L (39-117); Anion Gap 13 (12-20); Aspartate Amino Transferase 15 U/L (5-31); Bilirubin Total 0.4 mg/dL (0.0-1.0); Blood Urea Nitrogen 23 mg/dL (9-16); Calcium 10.2 mg/dL (8.4-10.2); Carbon Dioxide 31 mmol/L (22-29); Chloride 103 mmol/L (96-108); Creatinine Clr Calc Pharmacy 56.3; Estimated Glomerular Filt Rate > 60; Glucose Random 111 mg/dL (60-115); Potassium 3.6 mmol/L (3.3-5.1); Sodium 143 mmol/L (135-145); Total Protein 7.4 g/dL (6.5-8.0)
[2023-08-30 23:43] LABS: Appearance Urine Clear; Color Urine Yellow; Glucose Urine UA Negative (Negative); Leukocyte Esterase Urine Negative (Negative); Nitrite Urine Negative (Negative); PH 8.5 (5.0-9.0); Urine Blood Negative (Negative); Urine Ketones Negative (Negative); Urine Protein Negative (Neg-Trace)
[2023-08-30] MEDS: Ketorolac Tromethamine 15 MG/ML VIAL IVPUSH (23:46)
[2023-08-30] MEDS: 0.9 % Sodium Chloride 1,000 ML 999 ML IV (23:47)
[2023-08-30 23:48] LABS: Troponin-I High Sensitivity < 2.7 ng/L (<3.5-17.0)
[2023-08-30 23:48] LABS: Bacteria Urine None Seen (None Seen); Hyaline Casts Urine 0-2 /LPF (0-2); RBC Urine 0-2 /HPF (0-2); Squamous Epithelial Cell Urine 0-2 /HPF (0-2); WBC Urine 0-5 /HPF (0-5)
[2023-08-31 00:02] LABS: Influenza A PCR NEGATIVE (Negative); Influenza B PCR NEGATIVE (Negative); Resp Syncy Virus RNA Qual PCR NEGATIVE (Negative); SARS COV2 PCR INHOUSE NEGATIVE (Negative)
[2023-08-31 00:50] VITALS: BP 132/81; PULSE 95; RESP 20; O2SAT 97
== END 2023-08-31 00:58 | disposition home or self-care (01) ==
LOC: HO.ED 08-31 00:21
PROVIDERS: Emergency Provider Emergency Medicine Emergency Medical Services; PCP Internal Medicine
DX: B34.9 Viral infection, unspecified (principal); R07.89 Other chest pain; R05.9 Cough, unspecified; Z11.52 Encounter for screening for COVID-19; Z20.822 Contact with and (suspected) exposure to COVID-19; Z79.899 Other long term (current) drug therapy
CPT/HCPCS: 0241U; 36415; 71045; 80053; 81001; 84484; 85025; 93005; 96361; 96374; 99284; 99285; J1885

== ENCOUNTER → 2023-08-30 22:56 | Outpatient (BNV) | payer OTHER, SELFPAY | PROVIDERS: Emergency Provider Emergency Medicine Emergency Medical Services; PCP Internal Medicine; Visit Provider Internal Medicine | DX: R07.9 Chest pain, unspecified (principal) | CPT/HCPCS: 93010 ==

== ENCOUNTER 2023-09-22 15:14 | Outpatient (AMB) | payer OTHER, SELFPAY ==
[2023-09-22 15:36] VITALS: BP 118/70; PULSE 78; O2SAT 97
--- NOTE | 2023-09-22 15:36 | MHC.OFFWIV ---
Intake Vital Signs 09/22/23 15:36 Height 4 ft 11 in BP 118/70 Blood Pressure Location Lt brachial Position Sitting Pulse 78 Pulse Source Pulse Oximeter Pulse Oximetry (%) 97 Oxygen Delivery Method Room Air Intake Visit Reasons: EP muscle spasms from upper chest/back and up Intake Note: pt is here for c/o muscle spasm n upper back Patient Tobacco Use Status: Never used Tobacco Allergies prochlorperazine [From COMPAZINE] Allergy (Severe, Verified 09/22/23 15:38) HIGH BP, AND HR EFFECTED ALSO TACKYCARDIA shellfish derived [SHELLFISH DERIVED] Allergy (Severe, Verified 09/22/23 15:38) ANAPHYLAXIS ciprofloxacin [CIPROFLOXACIN] Allergy (Unknown, Verified 09/22/23 15:38) HIVES Do you need a note to return to daycare/school/sports/work: Yes HPI HPI Comments History of Present Illness Details 53 y/o female patient who presents to walk in clinic today with c/o muscle spasm on back (Trapezius) and Front x 1 week now. Denies any injury or trauma. [facility] Medical History (Updated 09/01/23 @ 00:[address]) COVID-19 vaccine series declined History of eczema Right-sided sensorineural hearing loss History of uterine prolapse History of abnormal cervical Pap smear History of asthma Congenital absence of left kidney Muscle spasm Chronic GERD Pneumonia due to COVID-19 virus Hammer toe of right foot Psoriasis Hallux varus (acquired), right foot Complex regional pain syndrome i of right lower limb Surgical menopause Surgical History Hx of colonoscopy History of esophagogastroduodenoscopy (EGD) History of bunionectomy History of lumpectomy of right breast History of section History of total abdominal hysterectomy Family History Father CAD (coronary artery disease) HTN (hypertension) Hyperlipidemia Myocardial infarction Mother Asthma Rheumatoid arthritis Hypoglycemia Maternal Grandmother Diabetes mellitus Asthma CAD (coronary artery disease) Maternal Aunt Diabetes mellitus Brother No problems noted. Sister No problems noted. Son No problems noted. Daughter No problems noted. Social History Housing: House Alcohol intake: current Alcohol intake frequency: holidays/special occasions only Alcohol type: wine and hard liquor Patient Tobacco Use Status: Never used Tobacco e-Cigarette/Vaping Use: Never Used service: No Current occupational status: employed Cognitive needs: No Hearing needs: No Vision needs: No Review of Systems Const All systems reviewed & are unremarkable except as noted in HPI and below Physical Exam Vital Signs: Last Vital Signs Pulse 78 09/22/23 15:36 BP 118/70 09/22/23 15:36 Pulse Ox 97 09/22/23 15:36 Oxygen Delivery Method Room Air 09/22/23 15:36 Const General: comfortable and no acute distress Orientation/consciousness: patient oriented x3 Chest Chest palpation & inspection: tenderness pectoral muscle on the right diffusely Back/Spine/Pelvis Cervical Spine: cervical muscular tenderness, cervical spasm and Cervical spine tenderness Thoracic/Lumbar Spine: pain with thoraco-lumbar ROM and thoracic spinal tenderness Neuro General: patient oriented x3 Assessment & Plan Assessment & Plan (1) Muscle strain of upper back: Code(s): S29.012A - Strain of muscle and tendon of back wall of thorax, initial encounter Plan: - Strain of muscle - Acetaminophen for pain relief. Medications: New acetaminophen 1,000 mg (2 x 500 mg) PO Q6H PRN 30 caps 0RF pain (scale score 7-10) S29.012A - Strain of muscle and tendon of back wall of thorax, initial encounter cyclobenzaprine 5 mg PO BEDTIME 20 tabs 0RF S29.012A - Strain of muscle and tendon of back wall of thorax, initial encounter lidocaine 5% leave on most painful area for up to 12 hrs 1 patch topical DAILY 30 ea 0RF S29.012A - Strain of muscle and tendon of back wall of thorax, initial encounter diclofenac sodium 1% (Voltaren Arthritis Pain) apply to single elbow, wrist or hand; for hand includes palm/fingers/back of hand 2 grams topical QID 100 grams 0RF S29.012A - Strain of muscle and tendon of back wall of thorax, initial encounter Coding Level of Care Code Est Pt Level 3 (68056) Diagnoses Muscle strain of upper back S29.012A Time Spent (min) 15
== END 2023-09-22 16:37 | disposition home or self-care (01) ==
PROVIDERS: PCP Internal Medicine; Visit Provider Nurse Practitioner Family
DX: S29.012A Strain of muscle and tendon of back wall of thorax, initial encounter (principal)
CPT/HCPCS: 99213

== ENCOUNTER 2023-09-28 09:23 | Outpatient (AMB) | payer OTHER, SELFPAY ==
[2023-09-28 09:50] VITALS: BP 130/90; PULSE 71; TEMP 36.3; O2SAT 97; BMI 28.3
--- NOTE | 2023-09-28 09:50 | MHC.OFFWIV ---
Intake Vital Signs 09/28/23 09:50 Height 4 ft 11 in Weight 140 lb BMI 28.3 BP 130/90 H Blood Pressure Location Lt brachial Position Sitting Pulse 71 Pulse Source Pulse Oximeter Temp 97.4 F Temp Source Temporal Artery Scan Pulse Oximetry (%) 97 Oxygen Delivery Method Room Air Intake Visit Reasons: EP RT shoulder pain Intake Note: pt is here today for rt shoulder pain started monday Patient Tobacco Use Status: Never used Tobacco Allergies prochlorperazine [From COMPAZINE] Allergy (Severe, Verified 09/28/23 09:54) HIGH BP, AND HR EFFECTED ALSO TACKYCARDIA shellfish derived [SHELLFISH DERIVED] Allergy (Severe, Verified 09/28/23 09:54) ANAPHYLAXIS ciprofloxacin [CIPROFLOXACIN] Allergy (Unknown, Verified 09/28/23 09:54) HIVES Do you need a note to return to daycare/school/sports/work: Yes HPI HPI Comments History of Present Illness Details 53 y/o female patient who presents to walk in clinic with c/o right shoulder pain. This is a chronic on going issue for awhile now. Pt was seen by me last week for similar concern. She was prescribed medications. Reports none of the medicines have worked for her. Rates her pain today at 10/10. Limited ROM due to pain. [facility] Medical History (Updated 09/01/23 @ 00:[address]) COVID-19 vaccine series declined History of eczema Right-sided sensorineural hearing loss History of uterine prolapse History of abnormal cervical Pap smear History of asthma Congenital absence of left kidney Muscle spasm Chronic GERD Pneumonia due to COVID-19 virus Hammer toe of right foot Psoriasis Hallux varus (acquired), right foot Complex regional pain syndrome i of right lower limb Surgical menopause Surgical History Hx of colonoscopy History of esophagogastroduodenoscopy (EGD) History of bunionectomy History of lumpectomy of right breast History of section History of total abdominal hysterectomy Family History Father CAD (coronary artery disease) HTN (hypertension) Hyperlipidemia Myocardial infarction Mother Asthma Rheumatoid arthritis Hypoglycemia Maternal Grandmother Diabetes mellitus Asthma CAD (coronary artery disease) Maternal Aunt Diabetes mellitus Brother No problems noted. Sister No problems noted. Son No problems noted. Daughter No problems noted. Social History Housing: House Alcohol intake: current Alcohol intake frequency: holidays/special occasions only Alcohol type: wine and hard liquor Patient Tobacco Use Status: Never used Tobacco e-Cigarette/Vaping Use: Never Used service: No Current occupational status: employed Cognitive needs: No Hearing needs: No Vision needs: No Review of Systems Const All systems reviewed & are unremarkable except as noted in HPI and below Physical Exam Vital Signs: Last Vital Signs Temp 97.4 F 09/28/23 09:50 Pulse 71 09/28/23 09:50 BP 130/90 H 09/28/23 09:50 Pulse Ox 97 09/28/23 09:50 Oxygen Delivery Method Room Air 09/28/23 09:50 BMI result Body Mass Index 28.3 Const General: no acute distress; No comfortable Orientation/consciousness: patient oriented x3 Neuro General: patient oriented x3, gait normal and moves all extremities Extrem Right upper extremity: shoulder/upper arm Details: normal to inspection, tenderness Location: of the A-C joint and of the proximal humerus and abnormal ROM Details: pain with active ROM and pain with passive ROM; no swelling, no ecchymosis, no crepitus, no deformity and no unusual warmth Office Meds ketorolac 30 mg/mL (1 mL) injection solution Performing Provider: Maida Gonzales NP Performing Location: [facility] [place] [facility] Administered by: Digna Rangel RN on 09/28/23 10:41 Dose Route Admin Location Dispensed Lot Number Expiration Date [facility] Government Relations Manager 30 mg IM right gluteal 1 mL [id number] 08/31/24 [id number] [employer] Assessment & Plan Assessment & Plan (1) Muscle strain of upper back: Code(s): S29.012A - Strain of muscle and tendon of back wall of thorax, initial encounter Plan: - Continue on Flexeril as directed (2) Right shoulder pain: Code(s): M25.511 - Pain in right shoulder Qualifiers: Chronicity: chronic Qualified Code(s): M25.511 - Pain in right shoulder; G89.29 - Other chronic pain Plan: - In office Adm of Ketorolac for pain relief. - If pain not better, advised ED Orders: Orders AMB Ketorolac Injection Today G89.29 - Other chronic pain, M25.511 - Pain in right shoulder Coding Level of Care Code Est Pt Level 3 (95620) Diagnoses Muscle strain of upper back S29.012A Chronic right shoulder pain M25.511; G89.29 Chronicity: chronic Time Spent (min) 15
== END 2023-09-28 16:13 | disposition home or self-care (01) ==
PROVIDERS: PCP Internal Medicine; Visit Provider Nurse Practitioner Family
DX: S29.012A Strain of muscle and tendon of back wall of thorax, initial encounter (principal); M25.511 Pain in right shoulder
CPT/HCPCS: 96372; 99213; J1885

== ENCOUNTER 2024-01-24 08:19 | Outpatient (AMB) | payer OTHER, SELFPAY ==
--- NOTE | 2024-01-24 08:50 | AM.OFFWIN_ITS ---
Intake Vital Signs 01/24/24 08:51 Height 4 ft 11 in Weight 140 lb BMI 28.3 BP 132/82 Blood Pressure Location Rt brachial Position Sitting Pulse 62 Pulse Source Pulse Oximeter Temp 98 F Temp Source Oral Pulse Oximetry (%) 98 Oxygen Delivery Method Room Air Intake Visit Reasons: EP vomiting diarrhea stomach upset Intake Note: pt is here for for vomiting, diarrhea and upset stomach Patient Tobacco Use Status: Never used Tobacco Allergies prochlorperazine [From COMPAZINE] Allergy (Severe, Verified 01/24/24 08:51) HIGH BP, AND HR EFFECTED ALSO TACKYCARDIA shellfish derived [SHELLFISH DERIVED] Allergy (Severe, Verified 01/24/24 08:51) ANAPHYLAXIS ciprofloxacin [CIPROFLOXACIN] Allergy (Unknown, Verified 01/24/24 08:51) HIVES Do you need a note to return to daycare/school/sports/work: No HPI HPI Comments History of Present Illness Details 54 y/o female patient who presents to [facility] in clinic with c/o nausea, vomiting and diarrhea. Symptoms started Monday [place] the [place]. She is the only one with the symptoms. Denies fevers but reports chills. [facility] Medical History (Updated 09/01/23 @ 00:02 by Background Daemon) COVID-19 vaccine series declined History of eczema Right-sided sensorineural hearing loss History of uterine prolapse History of abnormal cervical Pap smear History of asthma Congenital absence of left kidney Muscle spasm Chronic GERD Pneumonia due to COVID-19 virus Hammer toe of right foot Psoriasis Hallux varus (acquired), right foot Complex regional pain syndrome i of right lower limb Surgical menopause Surgical History Hx of colonoscopy History of esophagogastroduodenoscopy (EGD) History of bunionectomy History of lumpectomy of right breast History of section History of total abdominal hysterectomy Family History Father CAD (coronary artery disease) HTN (hypertension) Hyperlipidemia Myocardial infarction Mother Asthma Rheumatoid arthritis Hypoglycemia Maternal Grandmother Diabetes mellitus Asthma CAD (coronary artery disease) Maternal Aunt Diabetes mellitus Brother No problems noted. Sister No problems noted. Son No problems noted. Daughter No problems noted. Social History Housing: House Alcohol intake: current Alcohol intake frequency: holidays/special occasions only Alcohol type: wine and hard liquor Patient Tobacco Use Status: Never used Tobacco e-Cigarette/Vaping Use: Never Used service: No Current occupational status: employed Cognitive needs: No Hearing needs: No Vision needs: No Review of Systems Const All systems reviewed & are unremarkable except as noted in HPI and below Physical Exam Vital Signs: Last Vital Signs Temp 98 F 01/24/24 08:51 Pulse 62 01/24/24 08:51 BP 132/82 01/24/24 08:51 Pulse Ox 98 01/24/24 08:51 Oxygen Delivery Method Room Air 01/24/24 08:51 BMI result Body Mass Index 28.3 Const General: no acute distress; No comfortable Nutritional Appearance: obese Orientation/consciousness: patient oriented x3 HEENT Head: Yes normocephalic Ears: external ears normal and TM's normal bilaterally General nose exam: Normal nasal mucous membranes and turbinates present Face and sinus: Yes sinuses nontender Mouth: moist mucous membranes Resp Effort & Inspection: normal respiratory effort and able to speak in complete sentences Auscultation: clear to auscultation bilaterally, no crackles, no rales, no rhonchi and no wheezes Cardio Heart sounds: S1 normal heart sound present and S2 normal heart sound present Neuro General: patient oriented x3, gait normal and moves all extremities Psych Speech and movement: Normal speech and movement present Office Meds ondansetron 4 mg disintegrating tablet Performing Provider: Maida Gonzales NP Performing Location: [facility] Administered by: Maida Gonzales NP on 01/24/24 09:26 Dose Route Admin Location Dispensed Lot Number Expiration Date [employer] 4 mg translingual 4 mg 04/02/24 [id number] DIRECT RX Assessment & Plan Assessment & Plan (1) Nausea vomiting and diarrhea: Code(s): R11.2 - Nausea with vomiting, unspecified; R19.7 - Diarrhea, unspecified Plan: Avoid greasy foods Prepare your own meals Hydrate with plenty of fluids Acetaminophen for pain relief Rest Gave Zofran in the office. (2) URI, acute: Code(s): J06.9 - Acute upper respiratory infection, unspecified Plan: Ordered SARs Orders: Orders SARS-CoV2/FLU/RSV Today R09.89 - Other specified symptoms and signs involving the circulatory and respiratory systems AMB Ondansetron Adult Dose Today R11.2 - Nausea with vomiting, unspecified, R19.7 - Diarrhea, unspecified Medications: New metoclopramide HCl (Reglan) 10 mg PO Q6H PRN 60 tabs 0RF nausea and vomiting R11.2 - Nausea with vomiting, unspecified, R19.7 - Diarrhea, unspecified loperamide (Imodium A-D) administer after each loose stool until symptoms controlled; do not exceed 8 mg per 24 hrs 2 mg PO Q4H PRN 30 caps 0RF loose stool R11.2 - Nausea with vomiting, unspecified, R19.7 - Diarrhea, unspecified ondansetron 8 mg PO Q8H 60 tabs 0RF nausea nad vomiting R11.2 - Nausea with vomiting, unspecified, R19.7 - Diarrhea, unspecified Coding Level of Care Code Est Pt Level 4 (86767) Diagnoses Nausea vomiting and diarrhea R11.2; R19.7 URI, acute J06.9 Time Spent (min) 20
[2024-01-24 08:51] VITALS: BP 132/82; PULSE 62; TEMP 36.6; O2SAT 98; BMI 28.3
== END 2024-01-24 09:37 | disposition home or self-care (01) ==
PROVIDERS: PCP Internal Medicine; Visit Provider Nurse Practitioner Family
DX: R11.2 Nausea with vomiting, unspecified (principal); R19.7 Diarrhea, unspecified; J06.9 Acute upper respiratory infection, unspecified
CPT/HCPCS: 99214; S0119

== ENCOUNTER 2024-01-24 09:16 | Outpatient (REF) | payer OTHER, SELFPAY ==
[2024-01-24 12:19] LABS: Influenza A PCR NEGATIVE (Negative); Influenza B PCR NEGATIVE (Negative); Resp Syncy Virus RNA Qual PCR NEGATIVE (Negative); SARS COV2 PCR INHOUSE NEGATIVE (Negative)
== END 2024-01-24 09:17 | disposition home or self-care (01) ==
LOC: HO.LAB 09:16
PROVIDERS: Visit Provider Nurse Practitioner Family
DX: R09.89 Other specified symptoms and signs involving the circulatory and respiratory systems (principal)
CPT/HCPCS: 0241U

== ENCOUNTER 2024-03-12 08:07 | Outpatient (AMB) | payer OTHER, SELFPAY ==
--- NOTE | 2024-03-12 08:13 | MHC.PC.OV ---
Vital Signs 03/12/24 08:17 Height 4 ft 11 in Weight 144 lb BMI 29.1 BP 120/80 Blood Pressure Location Lt brachial Position Sitting Pulse 72 Pulse Source Pulse Oximeter Pulse Oximetry (%) 99 Oxygen Delivery Method Room Air Intake Visit Reasons: Annual PE Intake Note: Patient here for physical exam. Mammo: booked for monday. Allergies prochlorperazine [From COMPAZINE] Allergy (Severe, Verified 03/12/24 08:23) HIGH BP, AND HR EFFECTED ALSO TACKYCARDIA shellfish derived [SHELLFISH DERIVED] Allergy (Severe, Verified 03/12/24 08:23) ANAPHYLAXIS ciprofloxacin [CIPROFLOXACIN] Allergy (Unknown, Verified 03/12/24 08:23) HIVES Medication List - Last Reconciled 03/12/24 by Nohelia Cobb MD acetaminophen 1,000 mg (2 x 500 mg) PO Q6H PRN diclofenac sodium 1% (Voltaren Arthritis Pain) 2 grams topical QID dupilumab (Dupixent) 300 mg subcut Q2W estradiol 0 vag rings vaginal estradiol 0.5 mg PO DAILY loperamide (Imodium A-D) 2 mg PO Q4H PRN metoclopramide HCl (Reglan) 10 mg PO Q6H PRN ondansetron 8 mg PO Q8H valacyclovir 500 mg PO BID Tobacco use date assessed: 03/12/24 Dental Screening Dental Screen Date: 03/12/24 Did you have a dental visit in the last 12 months?: Yes Did you have a dental problem in the last 6 months where you did not have access to dental care?: No Was dental information given to patient?: Patient has dentist HPI Annual PE HPI Details 54-year-old lady with past medical history for right sensorineural hearing loss, chronic GERD, psoriasis, complex regional pain syndrome of right lower limb, here today for physical exam. She is due for her mammogram, already has a scheduled appointment later this week. She also has an appointment for a screening colonoscopy with Dr. Sanchez . She sees wears the OBGYN for her routine Pap and pelvic exam, has history of abnormal Pap and uterine fibroids status post TAHBSO in 2014. Has frequent hot flashes, currently receiving estrogen replacement given by her OB Has been having recurrent nasal discharge and congestion and postnasal drainage, requesting a prescription for fluticasone nasal spray and loratadine. She also has bee having recurrent episodes of upper back muscle spasm, and uses lidocaine patch, requesting a prescription. Recently was seen at [facility] and had a biopsy of a lesion on her hand several days ago. She has been having some pain and swelling over surgical site and has been applying bacitracin which has not been helping. PENDING SALE TO [facility] Medical History (Updated 03/17/24 @ 23:12 by Nohelia Cobb MD) Seasonal allergic rhinitis COVID-19 vaccine series declined History of eczema Right-sided sensorineural hearing loss History of uterine prolapse History of abnormal cervical Pap smear History of asthma Congenital absence of left kidney Muscle spasm Chronic GERD Pneumonia due to COVID-19 virus Hammer toe of right foot Psoriasis Hallux varus (acquired), right foot Complex regional pain syndrome i of right lower limb Surgical menopause Surgical History Hx of colonoscopy History of esophagogastroduodenoscopy (EGD) History of bunionectomy History of lumpectomy of right breast History of section History of total abdominal hysterectomy Family History Father CAD (coronary artery disease) HTN (hypertension) Hyperlipidemia Myocardial infarction Mother Asthma Rheumatoid arthritis Hypoglycemia Maternal Grandmother Diabetes mellitus Asthma CAD (coronary artery disease) Maternal Aunt Diabetes mellitus Brother No problems noted. Sister No problems noted. Son No problems noted. Daughter No problems noted. Social History Housing: House Alcohol intake: current Alcohol intake frequency: holidays/special occasions only Alcohol type: wine and hard liquor Patient Tobacco Use Status: Never used Tobacco e-Cigarette/Vaping Use: Never Used service: No Current occupational status: employed Cognitive needs: No Hearing needs: No Vision needs: No Female Reproductive History Menstrual Other: Goes to [facility] for her routine Pap and pelvic exam Questionnaire PHQ-9 Over the last 2 weeks, how often have you been bothered by any of the following problems? 1. Little interest or pleasure in doing things: several days 2. Feeling down, depressed, or hopeless: not at all 3. Trouble falling or staying asleep, or sleeping too much: several days 4. Feeling tired or having little energy: more than half the days 5. Poor appetite or overeating: not at all 6. Feeling bad about yourself - or that you are a failure or have let yourself or your family down: not at all 7. Trouble concentrating on things, such as reading the newspaper or watching television: several days 8. Moving or speaking so slowly that other people could have noticed. Or the opposite - being so fidgety or restless that you have been moving around a lot more than usual: not at all 9. Thoughts that you would be better off or of hurting yourself in some way: not at all Total score: 5 Depression Screening Interpretation: Negative Depression Screening Done: Yes 36277 - PHQ-9 Billing: Yes Source: Developed by Drs. Geronimo Rios, Juliann Marr, Fredi Beltran and colleagues, with an educational ariel from [employer]. Thrive Questionnaire Date Thrive assessed: 03/09/24 I am a: Patient What is your living situation today?: I have a steady place to live Within the past 12 months, did the food you bought not last and you didn't have the money to get more?: Never true Within the past 12 months, did you worry whether your food would run out before you got money to buy more?: Never true Do you have trouble paying for medicines?: No Do you have trouble getting transportation to medical appointments?: No Do you have trouble paying your heating and electricity bill?: No Do you have trouble taking care of your child, family member or friend?: No Do you have trouble with day-to-day activities such as bathing, preparing meals, shopping, managing finances, etc.?: No Are you currently unemployed and looking for a job?: No Are you interested in more education?: No Please select the resources that you would like help with: None Currently or been in a relationship where the following occur: No concerns reported THRIVE Score: 0 AUDIT C Alcohol Use Questionnaire (AUDIT-C) 1. How often do you have a drink containing alcohol?: Monthly or less 2. How many drinks containing alcohol do you have on a typical day when you are drinking?: 1 or 2 3. How often do you have six or more drinks on one occasion?: Never Total Score: 1 SHI-7 AMB Questionnaire SHI-7 Date SHI - 7 assessed: 03/12/24 Feeling nervous, anxious, or on edge: 1 = Several days Not being able to stop or control worryin = Not at all Worrying too much about different things: 1 = Several days Trouble relaxin = Not at all Being so restless that it is hard to sit still: 0 = Not at all Becoming easily annoyed or irritable: 0 = Not at all Feeling afraid as if something awful might happen: 1 = Several days Total SHI-7 score (0-4 normal; 5-9 mild; 10-14 moderate; 15-21 severe): 3 Source: Developed by Drs. Geronimo Rios, Juliann Marr, Fredi Beltran and colleagues, with an educational ariel from [employer]. SHI-7 Assessment Billing SHI-7 Assessment Tool: SHI-7 Assessment 14174 Review of Systems Const Denies body aches, Denies fatigue, Denies headache(s), Denies malaise, Denies weakness, Denies weight gain and Denies weight loss Eyes Reports no additional complaints ENT Denies dysphagia, Denies headache(s), Reports nasal congestion, Reports post nasal drip, Denies sinus pressure and Denies sore throat Card Denies irregular heart rhythm, Denies lightheadedness, Denies radiating jaw, neck or arm pain and Denies dyspnea Resp Reports chest congestion and Denies dyspnea GI Denies abdominal pain, Denies belching, Denies melena, Denies bloating, Denies dysphagia, Denies excessive flatus, Denies heartburn, Denies loose stools and Denies vomiting Reports no additional complaints Musc Details: Foot pain Skin/Breast Denies lesions and Denies rash Neuro Reports no additional complaints, Denies headache(s) and Denies weakness Psych Reports no additional complaints Endo Reports no additional complaints and Denies fatigue Enmanuel/Lymph Reports no additional complaints Aller/Immun Reports seasonal rhinorrhea Physical exam (Primary Care) Vital Signs: Last Vital Signs Pulse 72 03/12/24 08:17 BP 120/80 03/12/24 08:17 Pulse Ox 99 03/12/24 08:17 Oxygen Delivery Method Room Air 03/12/24 08:17 BMI result Body Mass Index 29.1 Tobacco/Smoking Status: Tobacco use Status Tobacco use date assessed 03/12/24 03/12/24 08:20 Patient Tobacco Use Status Never used Tobacco 03/12/24 08:20 e-Cigarette/Vaping Use Never Used 03/12/24 08:20 PHQ-9: PHQ-9 Score PHQ-9: Total score 5 03/12/24 08:49 Depression Screening Interpretation: Negative Thrive Assessment: Date of Thrive Assessment Date Thrive assessed 03/09/24 03/12/24 08:20 Currently or been in a relationship where the following occur: No concerns reported Const General: comfortable, no acute distress, well developed and alert Orientation/consciousness: patient oriented x3 HENMT Other: Nonpalpable thyroid Head: Yes normocephalic Ears: external ears normal, TM's normal bilaterally and EAC's normal General nose exam: Normal external nose present Face and sinus: Yes face symmetric Mouth: Normal oral and palatal mucosa present, lip normal, oropharynx normal and moist mucous membranes Eyes General: appearance normal, both eyes and all related structures Periorbital: periorbital findings normal Eyelids: Yes eyelids normal Conjunctivae: conjunctivae normal Sclerae: sclerae normal Pupils: Equal, round and reactive pupils present EOM: EOMs intact bilaterally Neck Neck: Yes full ROM, Yes no lymphadenopathy and Yes supple Chest Breast/axilla inspection: normal inspection of the breasts Breast/axilla palpation: normal palpation of the breasts Resp Effort & Inspection: normal respiratory effort and able to speak in complete sentences Auscultation: clear to auscultation bilaterally Cardio Rate: regular rate Rhythm: regular rhythm Heart sounds: S1 normal heart sound present and S2 normal heart sound present GI Inspection: Yes normal to inspection Palpation (GI): Soft to palpation, nontender, no guarding and no masses Auscultation: normal bowel sounds General: Yes no CVA tenderness and Yes deferred (sees Dr Hou) Back/Spine/Pelvis Back: no CVA tenderness and No back tenderness Skin Rashes: no rashes Neuro General: patient oriented x3, gait normal, tone normal, moves all extremities, Normal light touch and pain sensation, no focal motor deficits and CN's II-XI intact bilaterally Cranial nerves: Yes Equal, round and reactive pupils present Extrem General: Yes full ROM, Yes no pedal edema, Yes no calf tenderness and Yes normal gait Psych Appearance: grossly normal and well kempt Mental Status: mental status grossly normal Speech and movement: Normal speech and movement present Affect: normal affect Attitude: cooperative Thought process: Normal thought process present Thought content: Normal thought content present Assessment and Plan Assessment & Plan (1) Annual visit for general adult medical examination with abnormal findings: Code(s): Z00.01 - Encounter for general adult medical examination with abnormal findings Plan: Will check appropriate labs. Recommended dental visit every 6 months and regular eye exams, at least every 2 years. Take adequate calcium in diet and vitamin-D 3 at 2000 IU per cap once a day, in addition to weight-bearing exercises to help maintain good muscle tone and weight control. Instructed to do self-breast exam, up-to-date with her yearly mammogram.Sees Dr. Hou for her pelvic exam Pap smear. Has an appointment already scheduled for her screening colonoscopy in May at [facility] . Reminded to get yearly flu shot, does not want to get COVID vaccination (2) Complex regional pain syndrome i of right lower limb: Comment: Previously seen by Dr. Lucero Code(s): G90.521 - Complex regional pain syndrome I of right lower limb Plan: Taking acetaminophen 1000 mg every 6 hours as needed and applying diclofenac sodium 1% gel to affected area as needed alternating with lidocaine patch (3) Psoriasis: Code(s): L40.9 - Psoriasis, unspecified Plan: Currently on Dupixent, followed by dermatology (4) Chronic GERD: Code(s): K21.9 - Gastro-esophageal reflux disease without esophagitis Plan: Has ondansetron which he takes as needed for nausea, avoiding food triggers for heartburn (5) Right-sided sensorineural hearing loss: Comment: Diagnosed at [facility] Code(s): H90.5 - Unspecified sensorineural hearing loss Qualifiers: Contralateral hearing status: unspecified Qualified Code(s): H90.5 - Unspecified sensorineural hearing loss (6) Seasonal allergic rhinitis: Code(s): J30.2 - Other seasonal allergic rhinitis Plan: Prescription sent for loratadine 10 mg taken 1 tablet once a day as needed (7) COVID-19 vaccine series declined: Code(s): Z28.21 - Immunization not carried out because of patient refusal; Z28.310 - Unvaccinated for COVID-19 (8) Muscle spasm: Comment: Part of CRPS generalized pain syndrome Code(s): M62.838 - Other muscle spasm Plan: Prescription sent for lidocaine patch to use as directed Orders: Orders Basic Metabolic Panel Fasting 03/12/24 E89.40 - Asymptomatic postprocedural ovarian failure, G90.521 - Complex regional pain syndrome I of right lower limb, H90.5 - Unspecified sensorineural hearing loss, K21.9 - Gastro-esophageal reflux disease without esophagitis, L40.9 - Psoriasis, unspecified, Z00.01 - Encounter for general adult medical examination with abnormal findings Alanine Aminotransferase 03/12/24 E89.40 - Asymptomatic postprocedural ovarian failure, G90.521 - Complex regional pain syndrome I of right lower limb, H90.5 - Unspecified sensorineural hearing loss, K21.9 - Gastro-esophageal reflux disease without esophagitis, L40.9 - Psoriasis, unspecified, Z00.01 - Encounter for general adult medical examination with abnormal findings Aspartate Amino Transferase 03/12/24 E89.40 - Asymptomatic postprocedural ovarian failure, G90.521 - Complex regional pain syndrome I of right lower limb, H90.5 - Unspecified sensorineural hearing loss, K21.9 - Gastro-esophageal reflux disease without esophagitis, L40.9 - Psoriasis, unspecified, Z00.01 - Encounter for general adult medical examination with abnormal findings Lipid Panel 03/12/24 E89.40 - Asymptomatic postprocedural ovarian failure, G90.521 - Complex regional pain syndrome I of right lower limb, H90.5 - Unspecified sensorineural hearing loss, K21.9 - Gastro-esophageal reflux disease without esophagitis, L40.9 - Psoriasis, unspecified, Z00.01 - Encounter for general adult medical examination with abnormal findings Vitamin D 25-OH Total 03/12/24 E89.40 - Asymptomatic postprocedural ovarian failure, G90.521 - Complex regional pain syndrome I of right lower limb, H90.5 - Unspecified sensorineural hearing loss, K21.9 - Gastro-esophageal reflux disease without esophagitis, L40.9 - Psoriasis, unspecified, Z00.01 - Encounter for general adult medical examination with abnormal findings Medications: New fluticasone propionate 50 mcg/actuation (Allergy Relief (fluticasone)) administer into each nostril 1 spray intranasal DAILY PRN 16 grams 1RF allergy symptoms mupirocin calcium 2% 1 appl topical TID 5 days 15 grams 0RF lidocaine 5% leave on most painful area for up to 12 hrs 1 patch topical DAILY PRN 30 ea 0RF Painful muscle spasm loratadine 10 mg PO DAILY PRN 30 tabs 3RF allergy symptoms Discontinued metoclopramide HCl (Reglan) Discontinued Reason: Patient no longer taking 10 mg PO Q6H PRN 60 tabs 0RF nausea and vomiting R11.2 - Nausea with vomiting, unspecified, R19.7 - Diarrhea, unspecified Coding Level of Care Code Est Pt Prev Care 40-64y(30875) Diagnoses Annual visit for general adult medical examination with abnormal findings Z00.01 Complex regional pain syndrome i of right lower limb G90.521 Psoriasis L40.9 Chronic GERD K21.9 Sensorineural hearing loss (SNHL) of right ear, unspecified hearing status on contralateral side H90.5 Contralateral hearing status: unspecified Seasonal allergic rhinitis J30.2 COVID-19 vaccine series declined Z28.21; Z28.310 Muscle spasm M62.838 Additional Codes SHI-7 Assessment Billing - SHI-7 Assessment Tool: SHI-7 Assessment [id number] ([id number])
[2024-03-12 08:17] VITALS: BP 120/80; PULSE 72; O2SAT 99; BMI 29.1
== END 2024-03-12 15:56 | disposition home or self-care (01) ==
PROVIDERS: PCP Internal Medicine; Visit Provider Internal Medicine
DX: Z00.00 Encounter for general adult medical examination without abnormal findings (principal); G90.521 Complex regional pain syndrome I of right lower limb; J30.2 Other seasonal allergic rhinitis; M62.838 Other muscle spasm; L40.9 Psoriasis, unspecified; K21.9 Gastro-esophageal reflux disease without esophagitis; H90.5 Unspecified sensorineural hearing loss; Z28.21 Immunization not carried out because of patient refusal; Z28.310 Unvaccinated for COVID-19
CPT/HCPCS: 99213; 99396

== ENCOUNTER 2024-03-16 10:45 | Outpatient (REF) | payer OTHER, SELFPAY ==
--- NOTE | ~2024-03-16 | MM_ITS ---
EXAMINATION: MM SCREENING DIGITAL BREAST TOMOSYNTHESIS, BILATERAL CLINICAL INFORMATION: Screening. Asymptomatic. COMPARISON: Mammography: Comparison is made with available priors TECHNIQUE: Digital breast mammography with tomosynthesis is performed in both the craniocaudal and mediolateral oblique views along with computer-aided detection (CAD). FINDINGS: The breasts are heterogeneously dense, which may obscure small masses (ACR BI-RADS breast composition Category c). There are no significant masses, abnormal calcifications, or other abnormalities. MM/MM tomosynthesis screening BI IMPRESSION: No mammographic evidence of malignancy. ASSESSMENT: BI-RADS BI-RADS 1 - Negative RECOMMENDATION: Routine annual mammography screening. 1 year F/U This examination should not preclude the clinical evaluation of a suspicious palpable abnormality. This patient's information was entered into a reminder system with a target due date for their next mammogram. Electronically signed by: Suni Fenton DO 03/29/2024 08:55 AM EDT
== END 2024-03-16 10:46 | disposition home or self-care (01) ==
LOC: HO.MAMMO 10:45
PROVIDERS: PCP Internal Medicine; Visit Provider Internal Medicine
DX: Z12.31 Encounter for screening mammogram for malignant neoplasm of breast (principal)
CPT/HCPCS: 77063; 77067

== ENCOUNTER → 2024-03-16 10:45 | Outpatient (BNV) | payer OTHER, SELFPAY | PROVIDERS: PCP Internal Medicine; Visit Provider Internal Medicine | DX: Z12.31 Encounter for screening mammogram for malignant neoplasm of breast (principal) | CPT/HCPCS: 77063; 77067 ==

== ENCOUNTER 2024-03-23 09:03 | Outpatient (REF) | payer OTHER, SELFPAY ==
[2024-03-23 11:41] LABS: Alanine Aminotransferase 54 U/L (0-31); Anion Gap 10 (12-20); Aspartate Amino Transferase 31 U/L (5-31); Blood Urea Nitrogen 17 mg/dL (9-16); Calcium 9.2 mg/dL (8.4-10.2); Carbon Dioxide 26 mmol/L (22-29); Chloride 110 mmol/L (96-108); Cholesterol 187 mg/dL (<200); Estimated Glomerular Filt Rate > 60; Glucose Fasting 102 mg/dL (60-99); HDL Cholesterol 54 mg/dL (>40); LDL Cholesterol Calculated 117 mg/dL (<100); Potassium 4.4 mmol/L (3.3-5.1); Sodium 142 mmol/L (135-145); Triglycerides 83 mg/dL (<150)
== END 2024-03-23 09:04 | disposition home or self-care (01) ==
LOC: HO.HMGCLDS 09:03
PROVIDERS: PCP Internal Medicine; Visit Provider Internal Medicine
DX: Z00.01 Encounter for general adult medical examination with abnormal findings (principal); E89.40 Asymptomatic postprocedural ovarian failure; G90.521 Complex regional pain syndrome I of right lower limb; L40.9 Psoriasis, unspecified; K21.9 Gastro-esophageal reflux disease without esophagitis; H90.5 Unspecified sensorineural hearing loss
CPT/HCPCS: 36415; 80048; 80061; 82306; 84450; 84460

== ENCOUNTER 2024-05-06 09:11 | Day surgery (SDC) | payer OTHER, SELFPAY ==
[2023-05-03 10:55] VITALS: BMI 27.1
[2024-05-02 13:37] VITALS: BMI 29.1
--- NOTE | 2024-05-06 09:25 | MHC.SHP ---
Pre-Procedural Eval Section A - 24 Hr Update-Section A only Date of Service: 05/06/24 The patient is an INPATIENT: No The patient has been examined within 24 hours of the surgical procedure. The History & Physical has been completed within 30 days and I have reviewed it.: No Section B - Complete if H&P > 30 days Chief Complaint: Screening, GERD, IBS Relevant Family History (Specify if Yes): No Relevant Social History: None Present Medications: see Short Stay Collaborative assessment Medical History: Significant History (Anxiety and depression Chronic GERD Complex regional pain syndrome i of right lower limb Hallux varus (acquired), right foot Hammer toe of right foot Intermittent chest pain Pneumonia due to COVID-19 virus Psoriasis Surgical menopause) History of Previous Operations: Relevant previous surgery/procedure and date(s) (History of bunionectomy History of section History of esophagogastroduodenoscopy (EGD) History of lumpectomy of right breast History of total abdominal hysterectomy Hx of colonoscopy) Allergies: Allergies Allergy/AdvReac Type Severity Reaction Status Date / Time prochlorperazine Allergy Severe htn/tachyca Verified 05/02/24 13:39 [From COMPAZINE] rdia shellfish derived Allergy Severe ANAPHYLAXIS Verified 03/12/24 08:23 [SHELLFISH DERIVED] ciprofloxacin [CIPROFLOXACIN] Allergy Intermediate HIVES Verified 05/02/24 13:39 Review of Systems Sugical H&P ROS: Negative: Constitution, Cardiovascular and Respiratory and Yes, Specify: Gastrointestinal (GERD) Exam Surgical H&P Exam: Normal: Heart, Normal: Lungs, Normal: Extremities and Normal: Abdomen Plan Diagnosis/Plan: Unchanged I have reviewed the history and physical and performed a pertinent physical examination on my patient. No changes have occurred unless specified. Time Spent With Patient Time: Total time managing care of this patient today ____ minutes.
[2024-05-06 09:27] VITALS: BP 142/95; PULSE 88; RESP 16; TEMP 36.8; O2SAT 98; BMI 28.4
[2024-05-06] MEDS: Lactated Ringers 1,000 ML 80 ML IVCONT (09:39)
--- NOTE | 2024-05-06 09:56 | HO.ANESPROP2 ---
[facility] Active Problems Active Problems: All Active Problems (Updated 03/17/24 @ 23:12 by Nohelia Cobb MD) Seasonal allergic rhinitis (Acute) COVID-19 vaccine series declined (Acute) Right-sided sensorineural hearing loss (Acute) Muscle spasm (Acute) Chronic GERD (Acute) Psoriasis (Acute) Complex regional pain syndrome i of right lower limb (Acute) Surgical menopause (Acute) Past Medical History Medical History (Updated 03/17/24 @ 23:12 by Nohelia Cobb MD) Seasonal allergic rhinitis COVID-19 vaccine series declined History of eczema Right-sided sensorineural hearing loss History of uterine prolapse History of abnormal cervical Pap smear History of asthma Congenital absence of left kidney Muscle spasm Chronic GERD Pneumonia due to COVID-19 virus Hammer toe of right foot Psoriasis Hallux varus (acquired), right foot Complex regional pain syndrome i of right lower limb Surgical menopause Family History Family History Father CAD (coronary artery disease) HTN (hypertension) Hyperlipidemia Myocardial infarction Mother Asthma Rheumatoid arthritis Hypoglycemia Maternal Grandmother Diabetes mellitus Asthma CAD (coronary artery disease) Maternal Aunt Diabetes mellitus Brother No problems noted. Sister No problems noted. Son No problems noted. Daughter No problems noted. Family history of problems with anesthesia: No Surgical History Surgical History Hx of colonoscopy History of esophagogastroduodenoscopy (EGD) History of bunionectomy History of lumpectomy of right breast History of section History of total abdominal hysterectomy History of Problems with Anesthesia: No Social History Social History Housing: House Are you a primary manager intensive care unit to a significant other at home: No Do you presently have visiting nurse or other home services: No Alcohol intake: current Alcohol intake frequency: a few times a month Alcohol type: wine and hard liquor Patient Tobacco Use Status: Never used Tobacco e-Cigarette/Vaping Use: Never Used Use of substances other than those prescribed or required for medical reasons: No Have you been hit, kicked, punched, or otherwise hurt by someone within the past year? If so, by whom?: No Are you DNR?: No Advance Directives: No Advance Directives Information Provided: Yes Recently lost weight without trying: No service: No Current occupational status: employed Cognitive needs: No Hearing needs: No Vision needs: No Meds Allergies Allergy/AdvReac Type Severity Reaction Status Date / Time prochlorperazine Allergy Severe htn/tachyca Verified 05/02/24 13:39 [From COMPAZINE] rdia shellfish derived Allergy Severe ANAPHYLAXIS Verified 03/12/24 08:23 [SHELLFISH DERIVED] ciprofloxacin [CIPROFLOXACIN] Allergy Intermediate HIVES Verified 05/02/24 13:39 Active Medications: Current Medications Lactated Ringer's (Lr) 1,000 mls @ 80 mls/hr IVCONT .[id number] DULCE Last Admin: 05/06/24 09:39 Dose: 80 mls/hr Naloxone HCl (Naloxone Hcl 0.4 Mg/Ml Vial) 0.04 mg IVPUSH Q5M PRN PRN Reason: Excessive sedation or RR < 8 Home Medications ?Medication ?Instructions ?Recorded ?Confirmed ?Last Taken ?Type valacyclovir 500 mg tablet 500 mg PO BID 09/28/23 05/02/24 Unknown History dupilumab 300 mg/2 mL subcutaneous 300 mg subcut Q2W 03/12/24 05/02/24 Unknown History pen injector (Dupixent) estradiol 1 mg tablet 0.5 mg PO DAILY 03/12/24 05/02/24 Unknown History Exam Height,Weight and Vital Signs: Height 4 ft 11 in Weight 63.684 kg Last Vital Signs Temp 98.2 F 05/06/24 09:27 Pulse 88 05/06/24 09:27 Resp 16 05/06/24 09:27 BP 142/95 H 05/06/24 09:27 Pulse Ox 98 05/06/24 09:27 O2 Del Method Room Air 05/06/24 09:27 Airway Mallampati Class: II TM Dist: >3cm Neck ROM: Full Heart: rrr Lungs: cta Assessment and Plan Assessment Anesthesia Assessment: Anesthesia Plan Discussed and Chart Reviewed Final Anesthetic Review Family History of Problems with Anesthesia: No History of Problems with Anesthesia: No NPO: Yes ASA Class: II Final Preanesthetic Review: No Changes in Pt Med Stat, Meds/Allgs Chart Reviewed and Consent Obtained/Reviewed Patient Risk: Low Procedure Risk: Low Anesthetic Plan Anesthetic Plan: MAC: Disposition: Standard PACU
--- NOTE | 2024-05-06 10:35 | HO.OPN-COLON ---
Colonoscopy Operative Note Operative Note Date of Service: 05/06/24 Narrative: FLEXIBLE TRANSORAL UPPER GASTROINTESTINAL ENDOSCOPY WITH BIOPSIES AND COLONOSCOPY TILL CECUM WITH BIOPSIES Pre-op diagnosis: Colon cancer screening, GERD, post prandial diarrhea Post-op diagnosis: GERD, Gastritis, Gastric polyp, Diverticulosis, hemorrhoids Endoscopist:? Jacobo Sanchez MD Anesthesia:?MAC UPPER ENDOSCOPY Consent: Indications for the procedure and potential complications of bleeding, perforation, reaction to medications and missed diagnosis were discussed with the patient and informed consent was obtained. Instrument: Olympus GIF H 190 mid size upper endoscope Monitoring: Vital signs and clinical assessment, continuous EKG monitoring, Pulse oximetry, Carbon Dioxide monitoring and blood pressure monitoring were done throughout the procedure. Procedure: The patient was placed in the left lateral decubitis position and pre-procedure medications were administered and a bite block was placed. The endoscope was inserted into the mouth and advanced under direct vision to the third part of duodenum. A careful inspection was made as the upper endoscope was withdrawn including a retroflexed examination of the proximal stomach; Findings and interventions are described below. Findings: Larynx: Normal Esophagus: GE junction at 35 cms. No esophagitis or Kaufman's. Stomach: Two 4-5 mm benign appearing polyps in the gastric body - one removed with a cold bx Moderate diffuse gastric erythema - biopsies were obtained from the gastric body and antrum. Grade 2 flap valve on retroflexed examination of the cardia. Duodenum: Normal bulb and descending duodenum Biopsies were obtained from descending duodenum to check for celiac sprue Intervention: Biopsies as noted above COLONOSCOPY PROCEDURE NOTE Instrument: Olympus PCF H 190 L variable stiffness pediatric colonoscope Monitoring: Vital signs and clinical assessment, intermittent blood pressure monitoring, continuous EKG monitoring, Pulse oximetry and Carbon Dioxide monitoring were done throughout the procedure. Please see anesthesia flowsheet. Colon withdrawl time was 14 minutes. Procedure: The patient was placed in the left lateral decubitis position and pre-procedure medications were administered. After a digital rectal examination of the ano-rectum, the video colonoscope was inserted into the rectum and advanced through the colon to the cecum. The colonoscope was slowly withdrawn in a retrograde panoramic fashion and the colon mucosa was carefully examined including a retroflexed view of the rectum. Findings and interventions are described below. Procedure Difficulty: without difficulty Findings: Terminal Ileum: Not evaluated Cecum: Normal Ascending Colon: Normal Transverse Colon: Normal Descending Colon: Normal Sigmoid Colon: Moderate diverticulosis Rectum: Normal Ano-rectum: Moderate internal hemorrhoids Colon preparation: Good after some irrigation. [place] Bowel Preparation Scale Right colon; 2 Transverse colon: 2 Left colon; 2 (0 = Unprepared colon segment with mucosa not seen due to solid stool that cannot be cleared. 1 = Portion of mucosa of the colon segment seen, but other areas of the colon segment not well seen due to staining, residual stool and/or opaque liquid. 2 = Minor amount of residual staining, small fragments of stool and/or opaque liquid, but mucosa of colon segment seen well. 3 = Entire mucosa of colon segment seen well with no residual staining, small fragments of stool or opaque liquid) Impression and Post Procedure Diagnosis: Endoscopy Findings: ESOPHAGUS: Normal STOMACH: Gastritis and benign-appearing gastric polyps DUODENUM: Normal - biopsied to check for celiac sprue Colonoscopy Findings: No polyps were detected Random biopsies were obtained from right and left colon to check for microscopic colitis Moderate diverticulosis seen in the sigmoid colon Moderate hemorrhoids on retroflexed exam. Plan: Pt has a FU appointment on 05/20/24 with Adelita Locke NP Repeat Colonoscopy in 10 year if colon biopsies are normal Above findings were reviewed with the patient and relevant handouts were given and the discharge area.
[2024-05-06 11:01] VITALS: BP 156/64; PULSE 86; RESP 16; TEMP 36.1; O2SAT 97
[2024-05-06 11:16] VITALS: BP 117/77; PULSE 73; RESP 17; TEMP 36.1; O2SAT 98
== END 2024-05-06 11:55 | disposition home or self-care (01) ==
PROVIDERS: PCP Internal Medicine; Visit Provider Internal Medicine Gastroenterology
PROC: (CPT 45380; principal; 2024-05-06 10:20)
DX: K31.7 Polyp of stomach and duodenum (principal); K29.70 Gastritis, unspecified, without bleeding; K52.9 Noninfective gastroenteritis and colitis, unspecified; K21.9 Gastro-esophageal reflux disease without esophagitis; K57.30 Diverticulosis of large intestine without perforation or abscess without bleeding; K64.8 Other hemorrhoids; Z79.899 Other long term (current) drug therapy
CPT/HCPCS: 45380; 43239; 88305; 88313; 88342; J2003; J2704

== ENCOUNTER 2024-07-16 08:04 | Outpatient (AMB) | payer OTHER, SELFPAY ==
--- NOTE | 2024-07-16 08:40 | MHC.OFFWIV ---
Intake Vital Signs 07/16/24 08:42 Weight 143 lb BP 124/80 Blood Pressure Location Lt brachial Position Sitting Pulse 59 Pulse Source Pulse Oximeter Temp 98.0 F Temp Source Oral Pulse Oximetry (%) 99 Oxygen Delivery Method Room Air Intake Visit Reasons: EP Upper RT quad pain Intake Note: Patient here for upper right quad pain,loose stool that has been present for about 2 weeks. Patient Tobacco Use Status: Never used Tobacco Allergies prochlorperazine [From COMPAZINE] Allergy (Severe, Verified 07/16/24 08:43) htn/tachycardia shellfish derived [SHELLFISH DERIVED] Allergy (Severe, Verified 07/16/24 08:43) ANAPHYLAXIS ciprofloxacin [CIPROFLOXACIN] Allergy (Intermediate, Verified 07/16/24 08:43) HIVES Do you need a note to return to daycare/school/sports/work: No HPI HPI Comments History of Present Illness Details History - The patient is a 54-year-old female presenting with abdominal pain. - Symptoms began two weeks ago and have progressively worsened, characterized by fluctuating bowel habits from constipation to loose stools and occasional nausea. Denies bloody or black stools. - She is unsure if the pain is worse after eating or eating high fat foods. - No fever is noted. Denies hx of liver issues. - Recent Prior endoscopic evaluations, including colonoscopy and upper endoscopy, revealed no abnormalities or ulcerations. Physical Exam General: Cooperative, healthy appearing, comfortable and no acute distress Orientation/consciousness: Patient oriented x3 Limitations: No limitations Head: Normal to inspection Ears: Hearing grossly normal bilaterally, external ears normal Nose: Normal external nose present Face and sinus: Normal facial exam Eyes: Appearance normal, both eyes and all related structures Neck: Normal visual inspection Respiratory: Clear to auscultation bilaterally. Normal respiratory effort, able to speak in complete sentences, Actively coughing, no respiratory distress, not tachypneic, no tripod positioning and no use of accessory muscles Cardiovascular: Regular rate and rhythm. Normal S1 and S2 GI: soft, normal BS, TTP RUQ with positive Price's Skin: No rashes or lesions noted Neuro: Patient oriented x3 Extremities: Normal to inspection and Yes no clubbing, cyanosis or edema PFSH Medical History (Updated 07/16/24 @ 09:11 by Keyanna Chao PA-C) Seasonal allergic rhinitis COVID-19 vaccine series declined History of eczema Right-sided sensorineural hearing loss History of uterine prolapse History of abnormal cervical Pap smear History of asthma Congenital absence of left kidney Muscle spasm Chronic GERD Pneumonia due to COVID-19 virus Hammer toe of right foot Psoriasis Hallux varus (acquired), right foot Complex regional pain syndrome i of right lower limb Surgical menopause Surgical History Hx of colonoscopy History of esophagogastroduodenoscopy (EGD) History of bunionectomy History of lumpectomy of right breast History of section History of total abdominal hysterectomy Family History Father CAD (coronary artery disease) HTN (hypertension) Hyperlipidemia Myocardial infarction Mother Asthma Rheumatoid arthritis Hypoglycemia Maternal Grandmother Diabetes mellitus Asthma CAD (coronary artery disease) Maternal Aunt Diabetes mellitus Brother No problems noted. Sister No problems noted. Son No problems noted. Daughter No problems noted. Social History Housing: House Are you a primary child daycare worker to a significant other at home: No Do you presently have visiting nurse or other home services: No Alcohol intake: current Alcohol intake frequency: a few times a month Alcohol type: wine and hard liquor Patient Tobacco Use Status: Never used Tobacco e-Cigarette/Vaping Use: Never Used service: No Current occupational status: employed Cognitive needs: No Hearing needs: No Vision needs: No Review of Systems Const All systems reviewed & are unremarkable except as noted in HPI and below Physical Exam Vital Signs: Last Vital Signs Temp 98.0 F 07/16/24 08:42 Pulse 59 07/16/24 08:42 BP 124/80 07/16/24 08:42 Pulse Ox 99 07/16/24 08:42 Oxygen Delivery Method Room Air 07/16/24 08:42 Assessment & Plan Assessment & Plan (1) RUQ abdominal pain: Code(s): R10.11 - Right upper quadrant pain Plan: Plan The patient?s symptoms and positive physical exam findings are highly suggestive of a gallbladder-related issue such as cholelithiasis. Given the worsening symptoms and potential for complications, a visit to the emergency department is advised for further diagnostic imaging, such as an ultrasound or CT scan, which would allow for rapid diagnosis and treatment planning, potentially including surgical options like cholecystectomy. The urgency of imaging is stressed due to the intensity and persistence of symptoms. Patient is unable to go to the ED today as she has to work but will likely go after work today. IF pain gets worse or fevers develop, pt was encouraged to go to the ED immediately. Patient was informed and verbally consented to the use of an ambient scribe for clinic note documentation during this visit Coding Level of Care Code Est Pt Level 4 (90025) Diagnoses RUQ abdominal pain R10.11
[2024-07-16 08:42] VITALS: BP 124/80; PULSE 59; TEMP 36.7; O2SAT 99
== END 2024-07-16 09:37 | disposition home or self-care (01) ==
PROVIDERS: PCP Internal Medicine; Visit Provider Physician Assistant
DX: R10.11 Right upper quadrant pain (principal)

== ENCOUNTER → 2024-07-16 08:04 | Outpatient (BNVA) | payer OTHER, SELFPAY | PROVIDERS: PCP Internal Medicine; Visit Provider Physician Assistant | DX: R10.11 Right upper quadrant pain (principal) | CPT/HCPCS: 99212 ==

== ENCOUNTER 2024-08-02 16:24 | Outpatient (AMB) | payer OTHER, SELFPAY ==
--- NOTE | 2024-08-02 16:26 | A.OFFVIS_ITS ---
Vital Signs 08/02/24 16:34 Height 4 ft 11 in Weight 141 lb 1.533 oz BMI 28.5 BP 144/70 H Blood Pressure Location Rt brachial Position Sitting Pulse 82 Pulse Source Pulse Oximeter Pulse Oximetry (%) 97 Oxygen Delivery Method Room Air Intake Visit Reasons: S/P EGD/[place] [facility] Intake Note: ESTABLISHED PATIENT for s/p EGD + [place]. Chief Complaint; RUQ pain, Nausea w/o vomiting, gas + belching, worsening constipation and diarrhea. Creative Writer Required: No Accompanied by: Self / Same As Patient Allergies prochlorperazine [From COMPAZINE] Allergy (Severe, Verified 08/02/24 16:27) htn/tachycardia shellfish derived [SHELLFISH DERIVED] Allergy (Severe, Verified 08/02/24 16:27) ANAPHYLAXIS ciprofloxacin [CIPROFLOXACIN] Allergy (Intermediate, Verified 08/02/24 16:27) HIVES HPI HPI S/P EGD/[place] [facility]: Details: LAST VISIT 03/18/2022 Chronic GERD Symptoms of acid reflux are suppressed for the most part with pantoprazole and famotidine. Patient will go for upper endoscopy to further evaluate for esophagitis, gastritis, gastric or peptic ulcers, H pylori. Pending results from upper endoscopy and biopsy she might needs adjustment in her treatment otherwise patient can continue on current treatment for now. Screen for colon cancer Patient denies any cardiac or respiratory symptoms.? Denies any issues with anesthesia in the past, except feeling nauseaus after and requiring scopalamine patch. Denies any history of sleep apnea.? No history infectious diseases in the past or present.? Not on any anticoagulation therapy.? No family or personal history of colon cancer or polyps.? Patient denies melena, hematochezia, unintentional weight loss or ribbon like stools.? Discussed at length the pre-procedure,? prep, diet & medications as well as what to expect prior, during and after the procedure.?? Stressed the importance of good bowel prep. ?Recommended the use of Vaseline or Calmoseptine OTC & baby wipes with bowel movements to promote comfort.? ?Patient verbalizes understanding and agrees to plan of care.? She was given the opportunity to ask questions and all questions answered.? We will see her after the procedure.? IBS (irritable bowel syndrome) Continue FODMAP diet and avoiding dietary triggers. Continue taking Citrucel in the morning and senna in the evening to make sure patient empties her bowels completely. Patient will be gone for colonoscopy and upper endoscopy and I will see her after the procedure. Patient is agreeable to this plan and verbalizes understanding of instructions. She was given the opportunity to ask questions and all questions answered. ? Thank you for allowing me to participate in her care Plan Medications New polyethylene glycol 3350 (Miralax) As directed by gastroenterology department at [facility] 238 grams PO ONCE 238 grams 0RF Z12.11 bisacodyl (Dulcolax (bisacodyl)) 10 mg (2 x 5 mg) PO BEDTIME 180 tabs 4RF UPPER ENDOSCOPY AND COLONOSCOPY 05/06/2024 Upper endoscopy Findings: Larynx: Normal Esophagus: GE junction at 35 cms. No esophagitis or Kaufman's. Stomach: Two 4-5 mm benign appearing polyps in the gastric body - one removed with a cold bx Moderate diffuse gastric erythema - biopsies were obtained from the gastric body and antrum. Grade 2 flap valve on retroflexed examination of the cardia. Duodenum: Normal bulb and descending duodenum Biopsies were obtained from descending duodenum to check for celiac sprue Intervention: Biopsies as noted above Colonoscopy Findings: Terminal Ileum: Not evaluated Cecum: Normal Ascending Colon: Normal Transverse Colon: Normal Descending Colon: Normal Sigmoid Colon: Moderate diverticulosis Rectum: Normal Ano-rectum: Moderate internal hemorrhoids Colon preparation: Good after some irrigation. [place] Bowel Preparation Scale Right colon; 2 Transverse colon: 2 Left colon; 2 (0 = Unprepared colon segment with mucosa not seen due to solid stool that cannot be cleared. 1 = Portion of mucosa of the colon segment seen, but other areas of the colon segment not well seen due to staining, residual stool and/or opaque liquid. 2 = Minor amount of residual staining, small fragments of stool and/or opaque liquid, but mucosa of colon segment seen well. 3 = Entire mucosa of colon segment seen well with no residual staining, small fragments of stool or opaque liquid) Impression and Post Procedure Diagnosis: Endoscopy Findings: ESOPHAGUS: Normal STOMACH: Gastritis and benign-appearing gastric polyps DUODENUM: Normal - biopsied to check for celiac sprue Colonoscopy Findings: No polyps were detected Random biopsies were obtained from right and left colon to check for microscopic colitis Moderate diverticulosis seen in the sigmoid colon Moderate hemorrhoids on retroflexed exam. Plan: Pt has a FU appointment on 05/20/24 with Adelita Locke NP Repeat Colonoscopy in 10 year if colon biopsies are normal Above findings were reviewed with the patient and relevant handouts were given and the discharge area. PATHOLOGY RESULTS Diagnosis A. Small bowel, biopsy: Focally active enteritis; negative for celiac disease. B. Stomach, antrum, biopsy: Antral-type mucosa with mild chronic inactive inflammation; no Helicobacter organisms seen. C. Stomach, polyp: Clinically polypoid oxyntic mucosa with mild chronic inactive inflammation; no Helicobacter organisms seen. D. Stomach, body, biopsy: Oxyntic mucosa with mild chronic inactive inflammation; no Helicobacter organisms seen. E. Colon, right, biopsy: Colonic mucosa within normal limits; negative for microscopic colitis. F. Colon, left, biopsy: Colonic mucosa within normal limits; negative for melody roscopic colitis. TODAY'S VISIT: Patient is here today for follow-up and to discuss upper endoscopy and colonoscopy results. Patient denies any ill effects from the prep, anesthesia or procedure itself. Upper endoscopy and colonoscopy results discussed with patient. Patient had normal colonoscopy, negative for polyps and negative for microscopic colitis. Upper endoscopy showed mild chronic inactive inflammation in her stomach, no H pylori, no celiac and focally active enteritis seen. Patient reports epi gastric and right upper quadrant pain. Occasional loose stools, however patient feels like she has mostly constipation. Occasional diarrhea specially after eating certain meals. Patient reports that she was bit by a tick back in the fall. Has been feeling fatigued and tired. [facility] Medical History Seasonal allergic rhinitis COVID-19 vaccine series declined History of eczema Right-sided sensorineural hearing loss History of uterine prolapse History of abnormal cervical Pap smear History of asthma Congenital absence of left kidney Muscle spasm Chronic GERD Pneumonia due to COVID-19 virus Hammer toe of right foot Psoriasis Hallux varus (acquired), right foot Complex regional pain syndrome i of right lower limb Surgical menopause Surgical History Hx of colonoscopy History of esophagogastroduodenoscopy (EGD) History of bunionectomy History of lumpectomy of right breast History of section History of total abdominal hysterectomy Family History Father CAD (coronary artery disease) HTN (hypertension) Hyperlipidemia Myocardial infarction Mother Asthma Rheumatoid arthritis Hypoglycemia Maternal Grandmother Diabetes mellitus Asthma CAD (coronary artery disease) Maternal Aunt Diabetes mellitus Brother No problems noted. Sister No problems noted. Son No problems noted. Daughter No problems noted. Social History Housing: House Are you a primary career technical education instructor to a significant other at home: No Do you presently have visiting nurse or other home services: No Alcohol intake: current Alcohol intake frequency: a few times a month Alcohol type: wine and hard liquor Patient Tobacco Use Status: Never used Tobacco e-Cigarette/Vaping Use: Never Used service: No Current occupational status: employed Cognitive needs: No Hearing needs: No Vision needs: No Review of Systems Const Denies weight gain and Denies weight loss ENT Reports no additional complaints, Denies dysphagia and Denies odynophagia Card Reports no additional complaints Resp Reports no additional complaints GI Reports abdominal pain (RUQ), Denies belching, Denies melena, Reports bloating, Denies change in bowel habits, Reports constipation, Denies dysphagia, Denies excessive flatus, Denies dyspepsia, Reports heartburn, Denies diarrhea, Reports loose stools, Denies nausea, Denies odynophagia and Denies vomiting Musc Reports no additional complaints Neuro Reports no additional complaints Psych Reports no additional complaints Endo Reports no additional complaints Physical Exam Const General: healthy appearing, no acute distress and well developed Nutritional Appearance: well nourished Orientation/consciousness: patient oriented x3 Resp Effort & Inspection: normal respiratory effort, able to speak in complete sentences, no tracheal deviation and symmetric chest movement Auscultation: clear to auscultation bilaterally Cardio Rate: regular rate GI Inspection: Yes normal to inspection and No distended Palpation (GI): Soft to palpation, not firm, nontender and No hepatosplenomegaly present Auscultation: normal bowel sounds General: Yes no CVA tenderness Back/Spine/Pelvis Back: no CVA tenderness Skin General skin exam: elasticity normal, turgor normal and dry skin Neuro General: patient oriented x3 Psych Appearance: grossly normal Mental Status: mental status grossly normal Assessment & Plan Assessment & Plan (1) RUQ abdominal pain: Code(s): R10.11 - Right upper quadrant pain Category: Medical (2) Chronic GERD: Code(s): K21.9 - Gastro-esophageal reflux disease without esophagitis Category: Medical (3) Constipation: Code(s): K59.00 - Constipation, unspecified Qualifiers: Constipation type: slow transit constipation Qualified Code(s): K59.01 - Slow transit constipation Plan Patient reports bitten by did take few months ago and reports fatigue some muscle pain. Will send her for Lyme testing. Patient reports epigastric pain and right upper quadrant pain, we will order liver panel and lipase. Discussed with patient low FODMAP diet. List of food recommended as well as list of food to avoid given to patient. Patient can start taking senna to help her move her bowels better. She will call our office if this will not be effective. Will switch it to Dulcolax. Patient was encouraged to avoid dietary triggers. Denies any acid reflux at this time. Will hold off on giving her PPI. However patient can take Pepcid as needed. Staying upright for minimum 3 hours after meals discussed with patient. Patient will follow-up in 3 months, sooner on as needed basis. She is agreeable to this plan and verbalizes understanding of instructions. She was given the opportunity to ask questions and all questions answered. Thank you for allowing me to participate in her care Orders: Orders Lyme IgG/IgM w/reflex to WB Today R52 - Pain, unspecified TSH reflex Free T4 Today K59.00 - Constipation, unspecified Lipase Today R10.9 - Unspecified abdominal pain Liver Panel Today R74.01 - Elevation of levels of liver transaminase levels Medications: New sennosides (Natural Senna Laxative) 17.2 mg (2 x 8.6 mg) PO BEDTIME 60 tabs 3RF constipation K59.00 - Constipation, unspecified famotidine (Pepcid) 20 mg PO BEDTIME 30 tabs 3RF K21.9 - Gastro-esophageal ref lux disease without esophagitis Coding Level of Care Code Est Pt Level 4 (27504) Diagnoses RUQ abdominal pain R10.11 Chronic GERD K21.9 Slow transit constipation K59.01 Constipation type: slow transit constipation
[2024-08-02 16:34] VITALS: BP 144/70; PULSE 82; O2SAT 97; BMI 28.5
== END 2024-08-02 16:43 | disposition home or self-care (01) ==
PROVIDERS: PCP Internal Medicine; Visit Provider Nurse Practitioner Family
DX: R10.11 Right upper quadrant pain (principal); K21.9 Gastro-esophageal reflux disease without esophagitis; K59.01 Slow transit constipation
CPT/HCPCS: 99214

== ENCOUNTER → 2024-08-02 16:24 | Outpatient (BNVA) | payer OTHER, SELFPAY | PROVIDERS: PCP Internal Medicine; Visit Provider Nurse Practitioner Family | DX: K21.9 Gastro-esophageal reflux disease without esophagitis (principal); K59.01 Slow transit constipation; R10.11 Right upper quadrant pain | CPT/HCPCS: 99212 ==

== ENCOUNTER → 2024-08-14 09:38 | Outpatient (REF) | payer OTHER, SELFPAY ==
--- NOTE | ~2024-08-14 | NM_ITS ---
EXAMINATION: NM BILIARY TRACT CLINICAL INFORMATION: Right upper quadrant pain, nausea and vomiting. COMPARISON: None available. TECHNIQUE: Following intravenous administration of 5 mCi of technetium 99m mebrofenin, imaging over the right upper quadrant was obtained up to 60 minutes. At 10 minutes 1.3 mcg CCK was injected over 30 minutes by a pump and imaging obtained over 30 minutes. FINDINGS: There is normal hepatic uptake without any focal defects. CBD is visualized by 13-14 minutes. Gallbladder is visualized by 15/60 minutes. Small bowel is visualized by 21/22 minutes. Post-CCK the gallbladder ejection fraction at 10 minutes is 0%, At 20 minutes is 18% At 30 minutes is 35%. The normal gallbladder ejection fraction at 30 minutes is between 30% and 80%. NM/NM hepatobiliary w pharm IMPRESSION: Normal gallbladder ejection fraction is 35% at 30 minutes. Normal hepatic uptake. Patent cystic duct and patent common bile duct. Electronically signed by: Riley Bruno MD 08/14/2024 02:22 PM [facility]
== END ==
LOC: HO.NUCMED 09:38
PROVIDERS: PCP Internal Medicine; Visit Provider Nurse Practitioner Family
DX: R10.11 Right upper quadrant pain (principal)
CPT/HCPCS: 78227; A9537; J2805

== ENCOUNTER → 2024-08-14 09:39 | Outpatient (BNV) | payer OTHER, SELFPAY | PROVIDERS: PCP Internal Medicine; Visit Provider Radiology Diagnostic Radiology | DX: K83.8 Other specified diseases of biliary tract (principal) | CPT/HCPCS: 78227 ==

== ENCOUNTER 2025-03-17 08:05 | Outpatient (AMB) | payer OTHER, SELFPAY ==
[2025-03-17 08:08] VITALS: BP 124/80; PULSE 78; RESP 15; O2SAT 97; BMI 28.5
--- NOTE | 2025-03-17 08:08 | A.OFFPC_ITS ---
Vital Signs 03/17/25 08:08 Height 4 ft 11 in Weight 141 lb BMI 28.5 BP 124/80 Blood Pressure Location Rt brachial Position Sitting Respiration 15 Pulse 78 Pulse Source Pulse Oximeter Pulse Oximetry (%) 97 Oxygen Delivery Method Room Air Intake Visit Reasons: PE Intake Note: Pt is here today for her PE: Last mammogram 03/16/24, colonoscopy 05/06/24 Allergies prochlorperazine (From COMPAZINE) Allergy (Severe, Verified 03/17/25 08:16) htn/tachycardia shellfish derived (SHELLFISH DERIVED) Allergy (Severe, Verified 03/17/25 08:16) ANAPHYLAXIS ciprofloxacin (CIPROFLOXACIN) Allergy (Intermediate, Verified 03/17/25 08:16) HIVES Medication List - Last Reconciled 03/17/25 by Nohelia Cobb MD diclofenac sodium 1% (Voltaren Arthritis Pain) 2 grams topical QID dupilumab (Dupixent) 300 mg subcut Q2W estradiol 0.5 mg PO DAILY famotidine 20 mg PO BEDTIME fluticasone propionate 50 mcg/actuation (Allergy Relief (fluticasone)) 1 spray intranasal DAILY PRN lidocaine 5% 1 patch topical DAILY PRN loratadine 10 mg PO DAILY PRN mupirocin calcium 2% 1 appl topical TID 5 days sennosides (Natural Senna Laxative) 17.2 mg (2 x 8.6 mg) PO BEDTIME Tobacco use date assessed: 03/12/24 Dental Screening Dental Screen Date: 03/17/25 Did you have a dental visit in the last 12 months?: Yes Did you have a dental problem in the last 6 months where you did not have access to dental care?: Yes Was dental information given to patient?: Patient has dentist HPI PE HPI Details 55-year-old lady with history of psorias is, currently on Dupixent, right-sided new sensorineural hearing loss currently being followed by ENT in [place], surgical menopause, here today for her physical exam. She is up-to-date with her screening mammogram, already has 1 scheduled later this year. [facility] and currently receiving estradiol 4 surgical menopause, up-to-date with her screening colonoscopy done by Dr. Sanchez last year, repeat due again in 10 years. Has been taking famotidine as needed for heartburn symptoms which is diet related, complaining of intermittent episode of abdominal bloating, and occasional stool incontinence. Patient states that when she feels the urge to go, she has to go immediately to the bathroom otherwise she will not be able to make it, and has had several accidents in the past . She did not notice that after stopping taking senna on a regular basis these episodes have been occurring infrequently. Colonoscopy done last year did not show any evidence of colitis and HIDA scan done earlier also came back with normal findings She had a tick bite on her abdomen 2 weeks ago was given just 1 dose of doxycycline by another provider, would like to get checked for Lyme as she has noticed increasing mental fogginess, and fatigue but no joint pains. She is up-to-date with her eye exam but only has been seen by an box lining machine feeder. Has been having intermittent episodes of left eye pain and conjunctival injection on and off. Advised to go and make an appointment to see an plate and frame filter operator. She is currently taking Dupixent for her psoriasis which has been helping, goes to [facility] Medical History Intermittent diarrhea Seasonal allergic rhinitis COVID-19 vaccine series declined History of eczema Right-sided sensorineural hearing loss History of uterine prolapse History of abnormal cervical Pap smear History of asthma Congenital absence of left kidney Muscle spasm Chronic GERD Pneumonia due to COVID-19 virus Hammer toe of right foot Psoriasis Hallux varus (acquired), right foot Complex regional pain syndrome i of right lower limb Surgical menopause Surgical History Hx of colonoscopy History of esophagogastroduodenoscopy (EGD) History of bunionectomy History of lumpectomy of right breast History of section History of total abdominal hysterectomy Family History Father CAD (coronary artery disease) HTN (hypertension) Hyperlipidemia Myocardial infarction Mother Asthma Rheumatoid arthritis Hypoglycemia Maternal Grandmother Diabetes mellitus Asthma CAD (coronary artery disease) Maternal Aunt Diabetes mellitus Brother No problems noted. Sister No problems noted. Son No problems noted. Daughter No problems noted. Social History Housing: House Are you a primary rn homecare to a significant other at home: No Do you presently have visiting nurse or other home services: No Alcohol intake: current Alcohol intake frequency: a few times a month Alcohol type: wine and hard liquor Patient Tobacco Use Status: Never used Tobacco e-Cigarette/Vaping Use: Never Used service: No Current occupational status: employed Cognitive needs: No Hearing needs: No Vision needs: No Questionnaire PHQ-9 Over the last 2 weeks, how often have you been bothered by any of the following problems? 1. Little interest or pleasure in doing things: not at all 2. Feeling down, depressed, or hopeless: not at all 3. Trouble falling or staying asleep, or sleeping too much: not at all 4. Feeling tired or having little energy: not at all 5. Poor appetite or overeating: not at all 6. Feeling bad about yourself - or that you are a failure or have let yourself or your family down: not at all 7. Trouble concentrating on things, such as reading the newspaper or watching television: not at all 8. Moving or speaking so slowly that other people could have noticed. Or the opposite - being so fidgety or restless that you have been moving around a lot more than usual: not at all 9. Thoughts that you would be better off or of hurting yourself in some way: not at all Total score: 0 Depression Screening Interpretation: Negative Depression Screening Done: Yes 09121 - PHQ-9 Billing: Yes Source: Developed by Drs. Geronimo Rios, Juliann Marr, Fredi Beltran and colleagues, with an educational ariel from [employer]. Thrive Questionnaire Date Thrive assessed: 03/10/25 I am a: Patient What is your living situation today?: I have a steady place to live Within the past 12 months, did the food you bought not last and you didn't have the money to get more?: Never true Within the past 12 months, did you worry whether your food would run out before you got money to buy more?: Never true Do you have trouble paying for medicines?: No Do you have trouble getting transportation to medical appointments?: No Do you have trouble paying your heating and electricity bill?: No Do you have trouble taking care of your child, family member or friend?: No Do you have trouble with day-to-day activities such as bathing, preparing meals, shopping, managing finances, etc.?: No Are you currently unemployed and looking for a job?: No Are you interested in more education?: No Please select the resources that you would like help with: None Currently or been in a relationship where the following occur: No concerns reported THRIVE Score: 0 AUDIT C Alcohol Use Questionnaire (AUDIT-C) 1. How often do you have a drink containing alcohol?: 2-4 times a month 3. How often do you have six or more drinks on one occasion?: Never Total Score: 2 Score Reviewed/Action Taken: Yes SHI-7 AMB Questionnaire SHI-7 Date SHI - 7 assessed: 03/17/25 Feeling nervous, anxious, or on edge: 0 = Not at all Not being able to stop or control worryin = Not at all Worrying too much about different things: 0 = Not at all Trouble relaxin = Not at all Being so restless that it is hard to sit still: 0 = Not at all Becoming easily annoyed or irritable: 0 = Not at all Feeling afraid as if something awful might happen: 1 = Several days Total SHI-7 score (0-4 normal; 5-9 mild; 10-14 moderate; 15-21 severe): 1 Source: Developed by Drs. Geronimo Rios, Juliann Marr, Fredi Beltran and colleagues, with an educational ariel from [employer]. SHI-7 Assessment Billing SHI-7 Assessment Tool: SHI-7 Assessment 03663 Review of Systems Const Reports no additional complaints, Denies weight gain and Denies weight loss Eyes Details: Wears reading glasses Reports as per HPI ENT Reports no additional complaints, Denies dysphagia and Denies odynophagia Card Reports no additional complaints Resp Reports no additional complaints GI Reports abdominal pain (RUQ), Denies belching, Denies melena, Reports bloating, Denies change in bowel habits, Reports constipation, Denies dysphagia, Denies excessive flatus, Denies dyspepsia, Reports heartburn, Denies diarrhea, Reports loose stools, Denies nausea, Denies odynophagia and Denies vomiting Reports no additional complaints and Reports vaginal dryness (Currently on estradiol) Musc Reports no additional complaints Neuro Reports no additional complaints Psych Reports no additional complaints Endo Reports no additional complaints Physical exam (Primary Care) Vital Signs: Last Vital Signs Pulse 78 03/17/25 08:08 Resp 15 03/17/25 08:08 BP 124/80 03/17/25 08:08 Pulse Ox 97 03/17/25 08:08 Oxygen Delivery Method Room Air 03/17/25 08:08 BMI result Body Mass Index 28.5 Tobacco/Smoking Status: Tobacco use Status Tobacco use date assessed 03/12/24 03/17/25 08:15 Patient Tobacco Use Status Never used Tobacco 03/17/25 08:15 e-Cigarette/Vaping Use Never Used 03/17/25 08:15 PHQ-9: PHQ-9 Score PHQ-9: Total score 0 03/17/25 08:19 Depression Screening Interpretation: Negative Thrive Assessment: Date of Thrive Assessment Date Thrive assessed 03/10/25 03/17/25 08:15 Currently or been in a relationship where the following occur: No concerns reported Advance Care Planning discussion: Completed/Scanned Date of discussion: 03/17/25 Forms completed: Health Care Proxy Time spent: 16-45 minutes Actual minutes spent: 2 Const General: comfortable, no acute distress, well developed and alert Orientation/consciousness: patient oriented x3 HENMT Head: Yes normocephalic Ears: external ears normal, TM's normal bilaterally and EAC's normal General nose exam: Normal external nose present Face and sinus: Yes face symmetric Mouth: Normal oral and palatal mucosa present, lip normal, oropharynx normal and moist mucous membranes Eyes General: appearance normal, both eyes and all related structures Periorbital: periorbital findings normal Eyelids: Yes eyelids normal Conjunctivae: conjunctivae normal Sclerae: sclerae normal Pupils: Equal, round and reactive pupils present EOM: EOMs intact bilaterally Neck Neck: Yes full ROM, Yes no lymphadenopathy, Yes supple and Yes other (Nonpalpable thyroid) Chest Breast/axilla inspection: normal inspection of the breasts Breast/axilla palpation: normal palpation of the breasts Resp Effort & Inspection: normal respiratory effort and able to speak in complete sentences Auscultation: clear to auscultation bilaterally Cardio Rate: regular rate Rhythm: regular rhythm Heart sounds: S1 normal heart sound present and S2 normal heart sound present GI Inspection: Yes normal to inspection Palpation (GI): Soft to palpation, nontender, no guarding and no masses Auscultation: normal bowel sounds General: Yes no CVA tenderness and Yes deferred (sees Dr Hou) Back/Spine/Pelvis Back: no CVA tenderness and No back tenderness Skin Rashes: no rashes Neuro General: patient oriented x3, gait normal, tone normal, moves all extremities, Normal light touch and pain sensation, no focal motor deficits and CN's II-XI intact bilaterally Cranial nerves: Yes Equal, round and reactive pupils present Extrem General: Yes full ROM, Yes no pedal edema, Yes no calf tenderness and Yes normal gait Psych Appearance: grossly normal and well kempt Mental Status: mental status grossly normal Speech and movement: Normal speech and movement present Affect: normal affect Coding Level of Care Code Est Pt Prev Care 40-64y(57182) Diagnoses Annual visit for general adult medical examination with abnormal findings Z00.01 Abdominal bloating R14.0 Advance directive discussed with patient Z71.89 Tick bite of abdomen, subsequent encounter S30.861D; W57.XXXD Encounter type: subsequent encounter Sensorineural hearing loss (SNHL) of right ear, unspecified hearing status on contralateral side H90.5 Contralateral hearing status: unspecified Seasonal allergic rhinitis, unspecified trigger J30.2 Allergic rhinitis trigger: unspecified Chronic GERD K21.9 Surgical menopause E89.40 Additional Codes SIH-7 Assessment Billing - SHI-7 Assessment Tool: SHI-7 Assessment 55829 ([id number]) PHQ-9 - 04447 - PHQ-9 Billing: Yes ([id number]) Vital Signs *Quality* - Advance Care Planning discussion: Completed/Scanned ([id number]) Vital Signs *Quality* - Time spent: 16-45 minutes ([id number]) Assessment & Plan Assessment & Plan (1) Annual visit for general adult medical examination with abnormal findings: Code(s): Z00.01 - Encounter for general adult medical examination with abnormal findings Plan: Will check appropriate labs. Continue with regular dental visit every 6 months and regular eye exams, at least every 2 years. Take adequate calcium in diet and vitamin-D 3 at 2000 IU per cap once a day, in addition to weight-bearing e xercises to help maintain good muscle tone and weight control. Instructed to do self-breast exam, and continue to get yearly mammogram, already has an appointment scheduled for this year. Up-to-date with her pelvic exam, sees [facility]. Up-to-date with her screening colonoscopy. Reminded to get her flu shot and tetanus booster does not want to get COVID vaccination (2) Abdominal bloating: Code(s): R14.0 - Abdominal distension (gaseous) Plan: Started on dicyclomine 10 mg per capsule, initially take 1 capsule once a day 15 minutes before a meal. May increase it to twice a day dosing. (3) Advance directive discussed with patient: Code(s): Z71.89 - Other specified counseling Plan: Initiated the conversation about Advanced Directives. Advanced Directives help patients prepare for current and future decisions about their medical treatment and place of care. Discussed with patient that it is a process where a patients current condition and prognosis are reviewed, their wishes for information regarding their illness are elicited, and likely medical dilemmas are presented and options discussed. Healthcare proxy form completed today. The form can be amended as needed, reviewed yearly and make changes as needed (4) Tick bite of abdomen: Code(s): S30.861A - Insect bite (nonvenomous) of abdominal wall, initial encounter; W57.XXXA - Bitten or stung by nonvenomous insect and other nonvenomous arthropods, initial encounter Qualifiers: Encounter type: subsequent encounter Qualified Code(s): S30.861D - Insect bite (nonvenomous) of abdominal wall, subsequent encounter; W57.XXXD - Bitten or stung by nonvenomous insect and other nonvenomous arthropods, subsequent encounter Plan: Ordered Lyme titer (5) Right-sided sensorineural hearing loss: Comment: Diagnosed at [facility] Code(s): H90.5 - Unspecified sensorineural hearing loss Category: Medical Qualifiers: Contralateral hearing status: unspecified Qualified Code(s): H90.5 - Unspecified sensorineural hearing loss Plan: Currently being followed at [facility], scheduled to get an MRI of head (6) Seasonal allergic rhinitis: Code(s): J30.2 - Other seasonal allergic rhinitis Category: Medical Qualifiers: Allergic rhinitis trigger: unspecified Qualified Code(s): J30.2 - Other seasonal allergic rhinitis Plan: Takes loratadine 10 mg as needed (7) Chronic GERD: Code(s): K21.9 - Gastro-esophageal reflux disease without esophagitis Category: Medical Plan: Takes famotidine 20 mg as needed (8) Surgical menopause: Code(s): E89.40 - Asymptomatic postprocedural ovarian failure Category: Medical Plan: Currently on estradiol supplement, followed by [facility] Orders: Orders Lyme IgG/IgM w/reflex to WB Today R14.0 - Abdominal distension (gaseous), R19.7 - Diarrhea, unspecified, S30.861A - Insect bite (nonvenomous) of abdominal wall, initial encounter, W57.XXXA - Bitten or stung by nonvenomous insect and other nonvenomous arthropods, initial encounter, Z00.01 - Encounter for general adult medical examination with abnormal findings, Z13.1 - Encounter for screening for diabetes mellitus, Z13.220 - Encounter for screening for lipoid disorders, Z71.89 - Other specified counseling Complete Blood Count Auto Diff Today R14.0 - Abdominal distension (gaseous), R19.7 - Diarrhea, unspecified, S30.861A - Insect bite (nonvenomous) of abdominal wall, initial encounter, W57.XXXA - Bitten or stung by nonvenomous insect and other nonvenomous arthropods, initial encounter, Z00.01 - Encounter for general adult medical examination with abnormal findings, Z13.1 - Encounter for screening for diabetes mellitus, Z13.220 - Encounter for screening for lipoid disorders, Z71.89 - Other specified counseling Basic Metabolic Panel Fasting Today R14.0 - Abdominal distension (gaseous), R19.7 - Diarrhea, unspecified, S30.861A - Insect bite (nonvenomous) of abdominal wall, initial encounter, W57.XXXA - Bitten or stung by nonvenomous insect and other nonvenomous arthropods, initial encounter, Z00.01 - Encounter for general adult medical examination with abnormal findings, Z13.1 - Encounter for scre ening for diabetes mellitus, Z13.220 - Encounter for screening for lipoid disorders, Z71.89 - Other specified counseling Alanine Aminotransferase Today R14.0 - Abdominal distension (gaseous), R19.7 - Diarrhea, unspecified, S30.861A - Insect bite (nonvenomous) of abdominal wall, initial encounter, W57.XXXA - Bitten or stung by nonvenomous insect and other nonvenomous arthropods, initial encounter, Z00.01 - Encounter for general adult medical examination with abnormal findings, Z13.1 - Encounter for screening for diabetes mellitus, Z13.220 - Encounter for screening for lipoid disorders, Z71.89 - Other specified counseling Lipid Panel Today R14.0 - Abdominal distension (gaseous), R19.7 - Diarrhea, unspecified, S30.861A - Insect bite (nonvenomous) of abdominal wall, initial encounter, W57.XXXA - Bitten or stung by nonvenomous insect and other nonvenomous arthropods, initial encounter, Z00.01 - Encounter for general adult medical examination with abnormal findings, Z13.1 - Encounter for screening for diabetes mellitus, Z13.220 - Encounter for screening for lipoid disorders, Z71.89 - Other specified counseling Vitamin D 25-OH Total Today R14.0 - Abdominal distension (gaseous), R19.7 - Diarrhea, unspecified, S30.861A - Insect bite (nonvenomous) of abdominal wall, initial encounter, W57.XXXA - Bitten or stung by nonvenomous insect and other nonvenomous arthropods, initial encounter, Z00.01 - Encounter for general adult medical examination with abnormal findings, Z13.1 - Encounter for screening for diabetes mellitus, Z13.220 - Encounter for screening for lipoid disorders, Z71.89 - Other specified counseling Vitamin B12 and Folate Today R14.0 - Abdominal distension (gaseous), R19.7 - Diarrhea, unspecified, S30.861A - Insect bite (nonvenomous) of abdominal wall, initial encounter, W57.XXXA - Bitten or stung by nonvenomous insect and other nonvenomous arthropods, initial encounter, Z00.01 - Encounter for general adult medical examination with abnormal findings, Z13.1 - Encounter for screening for diabetes mellitus, Z13.220 - Encounter for screening for lipoid disorders, Z71.89 - Other specified counseling Aspartate Amino Transferase Today R14.0 - Abdominal distension (gaseous), R19.7 - Diarrhea, unspecified, S30.861A - Insect bite (nonvenomous) of abdominal wall, initial encounter, W57.XXXA - Bitten or stung by nonvenomous insect and other nonvenomous arthropods, initial encounter, Z00.01 - Encounter for general adult medical examination with abnormal findings, Z13.1 - Encounter for screening for diabetes mellitus, Z13.220 - Encounter for screening for lipoid disorders, Z71.89 - Other specified counseling TSH reflex Free T4 Today R14.0 - Abdominal distension (gaseous), R19.7 - Diarrhea, unspecified, S30.861A - Insect bite (nonvenomous) of abdominal wall, initial encounter, W57.XXXA - Bitten or stung by nonvenomous insect and other nonvenomous arthropods, initial encounter, Z00.01 - Encounter for general adult medical examination with abnormal findings, Z13.1 - Encounter for screening for diabetes mellitus, Z13.220 - Encounter for screening for lipoid disorders, Z71.89 - Other specified counseling Medications: New dicyclomine 10 mg PO BID PRN 60 caps 0RF Loading with diarrhea Changed From sennosides (Natural Senna Laxative) 17.2 mg (2 x 8.6 mg) PO BEDTIME 60 tabs 3RF constipation K59.00 - Constipation, unspecified To sennosides (Natural Senna Laxative) 17.2 mg (2 x 8.6 mg) PO BEDTIME PRN 60 tabs 3RF constipation K59.00 - Constipation, unspecified
== END 2025-03-17 09:08 | disposition home or self-care (01) ==
LOC: HO.HMCC 08:06
PROVIDERS: PCP Internal Medicine; Visit Provider Internal Medicine
DX: Z00.01 Encounter for general adult medical examination with abnormal findings (principal); R14.0 Abdominal distension (gaseous); Z71.89 Other specified counseling; S30.861D Insect bite (nonvenomous) of abdominal wall, subsequent encounter; W57.XXXD Bitten or stung by nonvenomous insect and other nonvenomous arthropods, subsequent encounter; H90.5 Unspecified sensorineural hearing loss; J30.2 Other seasonal allergic rhinitis; K21.9 Gastro-esophageal reflux disease without esophagitis; E89.40 Asymptomatic postprocedural ovarian failure; Z00.00 Encounter for general adult medical examination without abnormal findings

== ENCOUNTER → 2025-03-17 08:05 | Outpatient (BNVA) | payer OTHER, SELFPAY | PROVIDERS: PCP Internal Medicine; Visit Provider Internal Medicine | DX: Z00.01 Encounter for general adult medical examination with abnormal findings (principal); H90.41 Sensorineural hearing loss, unilateral, right ear, with unrestricted hearing on the contralateral side; R14.0 Abdominal distension (gaseous); H90.5 Unspecified sensorineural hearing loss; J30.2 Other seasonal allergic rhinitis; K21.9 Gastro-esophageal reflux disease without esophagitis; E89.40 Asymptomatic postprocedural ovarian failure; K59.00 Constipation, unspecified; S30.861D Insect bite (nonvenomous) of abdominal wall, subsequent encounter; W57.XXXD Bitten or stung by nonvenomous insect and other nonvenomous arthropods, subsequent encounter; Z71.89 Other specified counseling | CPT/HCPCS: 96127; 99396; 99497 ==

== ENCOUNTER 2025-03-29 10:13 | Outpatient (REF) | payer OTHER, SELFPAY ==
--- OUTSIDE RECORDS SUMMARY | 2025-03-29 10:17 | XMS_ITS | Clinical Summary ---
Author Organization [facility] Address [address] [place] [phone] Phone Care Team Providers Care Tie Binder Name Role Phone Nohelia Cobb MD Primary Care Provider Allergies Active Allergy Reactions Criticality Noted Date Comments Ciprofloxacin 04/09/2019 Prochlorperazine 04/09/2019 Shellfish Containing Products 2018 Medications fluconazole (DIFLUCAN) 100 MG tablet TAKE 1 TABLET BY MOUTH EVERY DAY FOR 5 DAYS 1 Active phenazopyridine (PYRIDIUM) 100 MG tabletIndicatio ns:Dysuria Take 1 tablet (100 mg total) by mouth 3 (three) times a day as needed for pain (specific location in comments) (bladder). 10 tablet 1 Active famotidine (PEPCID) 40 MG tablet Take 40 mg by mouth nightly at bedtime. at bedtime. 2 Active FIBER THERAPY, M-CELLULOSE, 500 mg Tab Take 500 mg by mouth daily. 2 Active pantoprazole (PROTONIX) 40 MG tablet TAKE 1 TABLET BY MOUTH EVERY DAY HALF AN HOUR BEFORE BREAKFAST 2 Active SENNA LAXATIVE 8.6 mg tablet TAKE 2 TABLETS BY MOUTH AT BEDTIME NEEDED FOR CONSTIPATION 2 Active estradioL (ESTRACE) 2 MG tablet Take 2 mg by mouth every morning. 1 Active penicillin V potassium (VEETIDS) 500 MG tablet Take 1 tablet (500 mg total) by mouth 2 (two) times a day. Take w food, yogurt, probiotics. Finish all. 20 tablet 2 Active Active Problems Problem Noted Date Diagnosed Date Alopecia 01/06/2021 Immunizations Immunization Administration Dates Next Due Hepatitis B Adult 12/28/2011,11/23/2011 INFLUENZA, SPLIT VIRUS, TRIV ALENT W/ PRESERVATIVE IM 04/25/2016,04/02/2015,04/02/2014,2012,04/14/2011 Influenza Quadrivalent Prese rvative Free IM 04/04/2016 Influenza Quadrivalent w/ Preservative IM 04/11/2019,04/24/2018,04/04/2018,2016 MMR 11/17/2015,11/23/2011 Td (adult),2 Lf Tetanus Toxo id, PF, Adsorbed 07/03/2000 Tdap 12/28/2009 Social History Tobacco Use Types Packs/Day Years Used Date Smoking Tobacco: Never Smokeless Tobacco: Never Alcohol Use Standard Drinks/Week Comments Yes 0 (1 standard drink = 0.6 oz pur e alcohol) occasionally Education Answer Date Recorded Are you interested in more education? Not on rajesh e 10/28/2022 Are you concerned about learning? Not on file 10/28/2022 No 10/28/2022 No 10/28/2022 Digital Access Answer Date Recorded No 11/29/2022 No 11/29/2022 No 11/29/2022 Reliable internet access at home? Not on file 11/29/2022 Device with a working camera? Not on file Comments No Sex and Gender Information Value Date Recorded Sex Assigned at Female 04/01/2019 3:49 PM EDT Legal Sex Female 3:39 PM EDT Gender Identity Female 04/01/2019 3:49 PM EDT Sexual Orientation Straight 04/01/2019 3: 49 PM EDT Last Filed Vital Signs Vital Sign Reading Time Taken Comments Blood Pressure 122/79 11/12/2021 1:22 PM EDT Pulse 77 11/12/2021 1:22 PM EDT Temperature 36.7 C (98.1 F) 11/12/2021 1:22 PM EDT Respiratory Rate 12 11/12/2021 1:22 PM EDT Oxygen Saturation 98% 11/12/2021 1:22 PM EDT Inhaled Oxygen Concentration - - Weight 54.4 kg (120 lb) 11/12/2021 1:22 PM EDT Height 149.9 cm (4' 11 ) 11/12/2021 1:22 PM EDT Body Mass Index 24.24 11/12/2021 1:22 PM EDT Plan of Treatment Health Maintenance Due Date Last Done Comments LIPID PANEL 1971 DEPRESSION SCREENING 1983 HEPATITIS C SCREENING 1989 HIV ONE-TIME SCREENING (18-65 YEARS) 1989 PAP SMEAR 01/21/1992 MAMMOGRAM 2011 COLOGUARD 01/21/2016 COLONOSCOPY 01/21/2016 COLORECTAL CANCER SCREENING 01/21/2016 FIT TEST 01/21/2016 FOBT 01/21/2016 SIGMOIDOSCOPY 01/21/2016 VIRTUAL COLONOSCOPY 01/21/2016 Adult Td,Tdap Booster 12/29/2019 12/28/2009, 001 PNEUMOCOCCAL VACCINES (50+ years) (1 of 1 - PCV) 2021 ZOSTER VACCINES (1 of 2) 2021 INFLUENZA VACCINE (#1) 2025 3, 04/11/2019, 04/24/2018, Additional history exists COVID-19 VACCINE ( - 2023- season) 2025 SMOKING STATUS SCREENING (Once After 26 Yrs) Completed 11/12/2021 HEPATITIS A VACCINES Aged Out No long er eligible based on patient's age to complete this topic HIB VACCINES Aged Out No longer eligi ble based on patient's age to complete this topic MENINGOCOCCAL VACCINES (ACWY) Aged Out No longer eligible based on patient's age to complete this topic MENINGOCOCCAL VACCINES (B) Aged Out N o longer eligible based on patient's age to complete this topic Medical Devices Not on file Insurance [facility] N[facility]G PCP MALIKA [place]YL[place] CONNECTORCARE WELLSENSE NON NSPG PCP [employer] CONNE[employer]CARE WELLSENSE NON NSPG PCP S[employer] CONNECTORCARE WELLSENSE NON NSPG PCP SILVER [employer]ITY CONNECTORCARE WELLSENSE NON NSPG PCP SILVER CLARITY CONNECTORCARE WELLSENSE NON NSPG PCP SILVER CLARITY CONNECTORCARE WELLSENSE NON NSPG PCP SILVER CLARITY CONNECTORCARE [facility] NON NSPG PCP SILVER [employer]ARITY CONNECTORCARE [facility] NON NSPG PCP SILVER [employer] CONNECTORCARE Care Teams Tie Binder Relationship Specialty Start Date End Date Nohelia Cobb MD [facility] [place] [address] PCP - General Internal Medicine 04/01/19 Additional Source Comments The information contained in this document represents components of the legal health record. It is not the complete legal health record.[facility]
--- OUTSIDE RECORDS SUMMARY | 2025-03-29 10:17 | XMS_ITS | Encounter Summary ---
Author Organization [facility] Address [address] [place] [id number] Care Team Providers Care Boat Tester Name Role Phone Nohelia Cobb MD Primary Care Provider Encounter Details Date Type Department Care Team (Latest Contact Info) Description 08/22/2024 Lab Requisition [facility] - Main Lab [address] [facility] [place] [address] Jayla Hodge MD [address] [facility] [address] [place] [address] Urinary tract infection, site not specified; Acute vaginitis; Encounter for screening for infections with a predominantly sexual mode of transmission Social History Tobacco Use Types Packs/Day Years Used Date Smoking Tobacco: Former Smokeless Tobacco: Never Alcohol Use Standard Drinks/Week Comments Yes 0 (1 standard drink = 0.6 oz pur e alcohol) Comments Unknown Sex and Gender Information Value Date Recorded Sex Assigned at Not on file Legal Sex Female 2:56 AM EST Gender Identity Not on file Sexual Orientation Not on file documented as of this encounter Plan of Treatment Not on file documented as of this encounter Procedures Procedure Name Priority Date/Time Associated Diagnosis Comments URINALYSIS WITH REFLEX MICROSCOPIC Routine 08/22/2024 12:00 AM EST Urinary tract infection, site not specified Acute vaginitis Encounter for screening for infections with a predominantly sexual mode of transmission URINALYSIS WITH REFLEX MICROSCOPIC Routine 08/22/2024 12:00 AM EST Urinary tract infection, site not specified Acute vaginitis Encounter for screening for infections with a predominantly sexual mode of transmission VAGINITIS PATHOGENS BY PCR Routine 08/22/2024 12:00 AM EST Urinary tract infection, site not specified Acute vaginitis Encounter for screening for infections with a predominantly sexual mode of transmission CHLAMYDIA TRACHOMATIS AND NEISSERIA GONORRHOEAE PCR Routine 08/22/2024 12:00 AM EST Urinary tract infection, site not specified Acute vaginitis Encounter for screening for infections with a predominantly sexual mode of transmission CULTURE URINE Routine 08/22/2024 12:00 AM EST Urinary tract infection, site not specified Acute vaginitis Encounter for screening for infections with a predominantly sexual mode of transmission documented in this encounter Results * (ABNORMAL) Urinalysis with reflex microscopic (08/22/2024 12:00 AM EST) Specific Curtis Urine 1.020 1.003 - 1.030 LAB URINALYSIS - AUTOMATED METHOD 08/22/2024 8:46 PM [facility] pH, Urine 7.5 5.0 - 8.0 pH LAB URINALYSIS - AUTOMATED METHOD 08/22/2024 8:46 PM [facility] Leukocytes, Urine Negative Negative LAB URINALYSIS - AUTOMATED METHOD 08/22/2024 8:46 PM [facility] Nitrite, Urine Positive(A) Negative LAB URINALYSIS - AUTOMATED METHOD 08/22/2024 8:46 PM [facility] Protein, Urine Negative <=Trace mg/dL LAB URINALYSIS - AUTOMATED METHOD 08/22/2024 8:46 PM [facility] Glucose, Urine Negative Negative mg/dL LAB URINALYSIS - AUTOMATED METHOD 08/22/2024 8:46 PM [facility] Ketones, Urine Negative Negative mg/dL LAB URINALYSIS - AUTOMATED METHOD 08/22/2024 8:46 PM [facility] Urobilinogen , Urine 1.0 0.2 - 1.0 mg/dL LAB URINALYSIS - AUTOMATED METHOD 08/22/2024 8:46 PM [facility] Bilirubin, Urine Negative Negative LAB URINALYSIS - AUTOMATED METHOD 08/22/2024 8:46 PM [facility] Blood, Urine Negative Negative LAB URINALYSIS - AUTOMATED METHOD 08/22/2024 8:46 PM [facility] RBC, Urine 1.6 0 - 4 /HPF LAB URINALYSIS - AUTOMATED METHOD 08/22/2024 8:46 PM [facility] WBC, Urine 0.4 0 - 4 /HPF LAB URINALYSIS - AUTOMATED METHOD 08/22/2024 8:46 PM [facility] Squamous Epithelial, Urine 37 0 - 60 /LPF LAB URINALYSIS - AUTOMATED METHOD 08/22/2024 8:46 PM [facility] Hyaline Casts, Urine 0.8 0 - 3 /LPF LAB URINALYSIS - AUTOMATED METHOD 08/22/2024 8:46 PM [facility] Urine Urine specimen obtained by clean catch procedure / Unknown 08/22/2024 08/22/2024 7:15 PM EST us Jayla Hodge MD LAB URINE ORDERABLES Fin al Result [facility] [address] [place] [address], [place] [phone] * Culture urine (08/22/2024 12:00 AM EST) Culture, Urine No growth 08/23/2024 1:15 PM [facility] Urine Urine specimen obtained by clean catch procedure / Unknown 08/22/2024 08/22/2024 7:15 PM EST us Jayla Hodge MD LAB MICROBIOLOGY - GENER AL ORDERABLES Final Result [facility] [address] [place] [address], [place] [phone] * Vaginitis pathogens molecular study (08/22/2024 12:00 AM EST) Trichomonas vaginalis Negative Negative 08/23/2024 12:35 PM EST [facility] Gardnerella vaginalis Negative Negative 08/23/2024 12:35 PM EST [facility] Stefanie Species Negative Negative 12:35 PM EST [facility] Swab Vaginal structure / Unknown 08/22/2024 08/22/2024 7:15 PM EST us Jayla Hodge MD LAB MICROBIOLOGY - GENER AL ORDERABLES Final Result Performing Organization Address City/[facility]/ZIP Co de Phone Number [facility] [address] [place] [address], * Chlamydia trachomatis and Neisseria gonorrhoeae molecular study (08/22/2024 12:00 AM EST) Neisseria gonorrhoeae PCR Negative Negative LAB MOLECULAR DIAGNOSTICS METHOD 08/23/2024 8:49 AM EST [facility] Chlamydia trachomatis PCR Negative Negative LAB MOLECULAR DIAGNOSTICS METHOD 08/23/2024 8:49 AM EST [facility] Swab Cervix uteri structure / Unknown 08/22/2024 08/22/2024 7:15 PM EST us Jayla Hodge MD LAB MICROBIOLOGY - GENER AL ORDERABLES Final Result [facility] [address] [place] [address], [place] [phone] documented in this encounter Visit Diagnoses Diagnosis Urinary tract infection, site not specified Acute vaginitis Unspecified vaginitis and vulvovaginitis Encounter for screening for infections with a predominantly sexual mode of transmission documented in this encounter Care Teams Boat Tester Relationship Specialty Start Date End Date Nohelia Cobb MD [address] [facility] [place] [address] PCP - General Internal Medicine 07/25/12 documented as of this encounter
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
--- OUTSIDE RECORDS SUMMARY | 2025-03-29 10:17 | XMS_ITS | Encounter Summary ---
Author Organization [facility] Address [address] [place] [address] Care Team Providers Care Uplands Division Director Name Role Phone Nohelia Cobb MD Primary Care Provider Encounter Details Date Type Department Care Team (Late st Contact Info) Description 09/11/2024 Lab Requisition [facility] - Main Lab [address] [place] [address] Ahsan Knowles MD [address] [facility] [address] [place], [place] [id number] Urinary tract infection, site not specified; Dysuria Social History Tobacco Use Types Packs/Day Years [...] Procedure Name Priority Date/Time Associated Diagnosis Comments CULTURE URINE Routine 09/11/2024 4:00 PM EDT Urinary tract infection, site not specified Dysuria documented in this encounter Results * Culture urine (09/11/2024 4:00 PM EDT) Culture, Urine No growth 09/13/2024 11:42 AM EDT [facility] Urine Urine specimen obtained by clean catch procedure / Unknown 09/11/2024 4:00 PM EDT 09/12/2024 9:49 AM EDT us Ahsan Knowles MD LAB MICROBIOLOGY - GENERAL ORDER KARTHIKEYAN Final Result [facility] [address] [place] [address], documented in this encounter Visit Diagnoses Diagnosis Urinary tract infection, site not specified Dysuria documented in this encounter Care Teams Uplands Division Director Relationship Specialty Start Date End Date Nohelia Cobb MD [address] [place] [address] PCP - General Internal Medicine 07/25/12 documented as of this encounter
--- OUTSIDE RECORDS SUMMARY | 2025-03-29 10:18 | XMS_ITS | Patient Health Record ---
Author [facility] Address [address] [facility] [place] [address] Care Team Providers Care Mental Health Program Specialist Name Role Phone Jordyn SUAREZ, Nohelia Patrick Primary Care Provider Un available Mark Beltre Unavailable [phone] Allergies Allergen (clinical drug ingredient) Drug/Non Drug Allergy documented on EMR Reaction Allergy Type Onset Date Status ciprofloxacin Cipro hives/rash Drug Allergy Ac tive shellfish anaphylaxis Drug Allergy Activ e Compazine anaphylaxis Drug Allergy Activ e Reason For Referral No Information Medications Medication SIG (Take, Route, Frequency, Duration) Notes Start Date End Date Status Finasteride 5 MG 0.5 tablet Orally On ce a day Active Fish Oil 500 MG 1 capsule Orally Twi ce a day; Duration: 30 day(s) Active Gabapentin 100 MG 1 capsule Orally bid ; Duration: 30 day(s) Active Vitamin C 500 MG 1 tablet Orally Once a day; Duration: 30 day(s) Active Vitamin D3 Active Zofran 8 MG 1 tablet as needed O rally Twice a day; Duration: 15 Day(s) 12/11/2018 Not-Taking Vitamin B6 Active Gabapentin 300 MG 1 capsule Orally Twi ce a day; Duration: 10 days 12/10/2018 Not-Takin g Nabumetone 500 MG 1 tablet Orally Twic e a day; Duration: 30 day(s) 12/10/2018 Not-Alexys ing Vitamin B 12 Active Vitamin B-1 Active Magali Allergy Not- Taking LORazepam 0.5 MG 1 tablet as needed O rally every 6 hrs Active Gabapentin 300 MG 1 capsule Orally Onc e a day; Duration: 10 days 11/22/2018 Not-Takin g Clobetasol Propionate Active Ibuprofen 800 MG 1 tablet with food o r milk as needed Orally Three times a day; Duration: 30 days 11/22/2018 Not-Taking Estradiol 2 MG 1 tablet Orally Angela y for Three Weeks, 1 Week off Active oxyCODONE HCl 5 MG 1 tablet as needed O rally every 6 hrs 12/10/2018 Not-Taking Social History Tobacco Use: Social History Observation Description Date Details (start date - stop date) Never Smoker NA - NA Tobacco Use/Smoking Question Answer Notes Are you a: nonsmoker Additional Findings: Tobacco Non-User Current no n-smoker Alcohol Screen Question Answer Notes Did you have a drink contain ing alcohol in the past year? Yes How often did you have a dri nk containing alcohol in the past year? Monthly or less (1 point) How many drinks did you have on a typical day when you were drinking in the past year? 1 or 2 drinks (0 point) How often did you have 6 or more drinks on one occasion in the past year? Never (0 point) Points 1 Interpretation Negative Tobacco use other than smoking: Question Answer Notes Are you an other tobacco user? No Problems Problem Type SNOMED Code ICD Code Onset Dates Problem Status W/U Status Risk Notes Problem Acquired hallux valgus (87450521) Hallux valgus (acquired), right foot (M20.11) Active confirmed Problem Acquired hammer toe of right foot (5189600808436 105) Other hammer toe(s) (acquired), right foot (M20.41) Active confirmed Problem Complex regional pain syndrome type I of right lower limb (disorder) (3543852845282 09) Complex regional pain syndrome type 1 of right lower extremity (G90.521) Active confirmed Plan Of Treatment Pending Test Test Name Order Date X ray : Foot, right 3V 09/20/2017 X ray : Foot, right 3V 12/10/2018 X ray : Foot, right 3V 12/18/2018 X ray : Foot, right 3V 12/24/2018 X ray : Foot, right 3V 01/07/2019 X ray : Foot, right 3V 01/23/2019 X ray : Foot, right 3V 02/18/2019 X ray : Foot, right 3V 03/11/2019 [id number] [id number] Boot 12/18/2018 Insurance Providers Payer Name Payer Address Payer Phone Subscriber Number Group Number Insured Name Patient Relationship to Insured Coverage Start Date Coverage End Date UMR [address] [address] [place] [address] [id number] Lucinda Riley Self - patient is the insured Medical (General) History Medical History History ICD Code asthma Psoriasis Surgical History Surgery Date(Month/Year) hysterectomy 09/2015 breast cyst removed 1992 Ju[place]ino R, HT R 2-4,Dislocated sesamoid R Ft 12/06/2018
[2025-03-29 11:12] LABS: MANUAL DIFF FLAG NO
[2025-03-29 11:17] LABS: Hematocrit 39.8 % (37.0-47.0); Hemoglobin 13.1 g/dl (12.0-16.0); Imm Gran Abs Auto 0.01 X10*3/uL (0.00-0.03); Imm Gran Pct Auto 0.2 % (0.0-0.4); Lymphocytes Absolute Auto 2.1 X10*3/uL (1.2-4.9); Mean Corpuscular HGB Conc 32.9 g/dl (31.0-35.0); Mean Corpuscular Hemoglobin 30.0 pg (27.0-33.0); Mean Corpuscular Volume 91.1 fL (80.0-98.0); NRBC Abs Auto 0.000 X10*3/uL (0.0-0.012); NRBC Pct Auto 0.0 /100WBC (0.0-0.2); Platelet Count 189 X10*3/uL (160-400); Red Blood Count 4.37 X10*6/uL (4.20-5.50); White Blood Count 4.7 X10*3/uL (4.8-10.8)
[2025-03-29 12:13] LABS: Alanine Aminotransferase 54 U/L (0-31); Anion Gap 11 (12-20); Aspartate Amino Transferase 33 U/L (5-31); Blood Urea Nitrogen 20 mg/dL (9-16); Calcium 9.2 mg/dL (8.4-10.2); Carbon Dioxide 24 mmol/L (22-29); Chloride 113 mmol/L (96-108); Cholesterol 189 mg/dL (<200); Estimated Glomerular Filt Rate > 60; HDL Cholesterol 59 mg/dL (>40); Potassium 4.2 mmol/L (3.3-5.1); Sodium 144 mmol/L (135-145); Triglycerides 79 mg/dL (<150)
[2025-03-29 12:32] LABS: Folate 12.9 ng/mL (> or = 4.0); Vitamin B12 443 pg/mL (200-900)
[2025-03-31 22:08] LABS: Lyme Abs Screen <0.90 index
[2025-04-12 02:48] LABS: Estradiol Free 0.60 pg/mL; Estradiol, Ultrasensitive 27 pg/mL
== END 2025-03-29 10:14 | disposition home or self-care (01) ==
LOC: HO.HMGCLDS 10:13
PROVIDERS: PCP Internal Medicine; Referring Provider Obstetrics & Gynecology; Visit Provider Internal Medicine
DX: Z00.01 Encounter for general adult medical examination with abnormal findings (principal); R19.7 Diarrhea, unspecified; R14.0 Abdominal distension (gaseous); N95.1 Menopausal and female climacteric states; R23.2 Flushing; S30.861A Insect bite (nonvenomous) of abdominal wall, initial encounter; W57.XXXA Bitten or stung by nonvenomous insect and other nonvenomous arthropods, initial encounter; Z13.220 Encounter for screening for lipoid disorders; Z13.1 Encounter for screening for diabetes mellitus; Z71.89 Other specified counseling
CPT/HCPCS: 36415; 80048; 80061; 82306; 82607; 82670; 82681; 82746; 84443; 84450; 84460; 85025; 86617; 86618

== ENCOUNTER 2025-05-10 10:26 | Outpatient (REF) | payer OTHER, SELFPAY ==
--- OUTSIDE RECORDS SUMMARY | 2025-05-10 10:29 | XMS_ITS | Encounter Summary ---
Author Organization [facility] Address [address] [place] [address] Care Team Providers Care Neuro Intensivist Physician Name Role Phone Nohelia Cobb MD Primary Care Provider Encounter Details Date Type Department Care Team (Latest Contact Info) Description 08/22/2024 Lab Requisition [facility] - Main Lab [address] [facility] [place] [address] Jayla Hodge MD 299 [facility] [address] [place] [address] Urinary tract infection, site not [...] reflex microscopic (08/22/2024 12:00 AM EST) Specific [place] Urine 1.020 1.003 - 1.030 LAB URINALYSIS - AUTOMATED METHOD 08/22/2024 8:46 PM [facility] pH, Urine 7.5 5.0 - 8.0 pH LAB URINALYSIS - AUTOMATED METHOD 08/22/2024 8:46 PM [facility] Leukocytes, Urine Negative Negative LAB URINALYSIS - AUTOMATED METHOD 08/22/2024 8:46 PM [facility] Nitrite, Urine Positive(A) Negative LAB URINALYSIS - AUTOMATED METHOD 08/22/2024 8:46 PM [facility] Protein, Urine Negative <=Trace mg/dL LAB URINALYSIS - AUTOMATED METHOD 08/22/2024 8:46 PM [facility] Glucose, Urine Negative Negative mg/dL LAB URINALYSIS - AUTOMATED METHOD 08/22/2024 8:46 PM [facility] Ketones, Urine Negative Negative mg/dL LAB URINALYSIS - AUTOMATED METHOD 08/22/2024 8:46 PM [facility] Urobilinogen , Urine 1.0 0.2 - 1.0 mg/dL LAB URINALYSIS - AUTOMATED METHOD 08/22/2024 8:46 PM [facility] Bilirubin, Urine Negative Negative LAB URINALYSIS - AUTOMATED METHOD 08/22/2024 8:46 PM [facility] Blood, Urine Negative Negative LAB URINALYSIS - AUTOMATED METHOD 08/22/2024 8:46 PM [facility] RBC, Urine 1.6 0 - 4 /HPF LAB URINALYSIS - AUTOMATED METHOD 08/22/2024 8:46 PM [facility] WBC, Urine 0.4 0 - 4 /HPF LAB URINALYSIS - AUTOMATED METHOD 08/22/2024 8:46 PM [facility] Squamous Epithelial, Urine 37 0 - 60 /LPF LAB URINALYSIS - AUTOMATED METHOD 08/22/2024 8:46 PM [facility] Hyaline Casts, Urine 0.8 0 - 3 /LPF LAB URINALYSIS - AUTOMATED METHOD 08/22/2024 8:46 PM [facility] Urine Urine specimen obtained by clean catch procedure / Unknown 08/22/2024 08/22/2024 7:15 PM EST us Jayla Hodge MD LAB URINE ORDERABLES Fin al Result [facility] [address] [place] [address], [place] [phone] * Culture urine (08/22/2024 12:00 AM EST) Culture, Urine No growth 08/23/2024 1:15 PM [facility] Urine Urine specimen obtained by clean catch procedure / Unknown 08/22/2024 08/22/2024 7:15 PM EST us Jayla Hodge MD LAB MICROBIOLOGY - GENER AL ORDERABLES Final Result [facility] [address] [place] [address], [place] [phone] * Vaginitis pathogens molecular study (08/22/2024 12:00 AM EST) Trichomonas vaginalis Negative Negative 08/23/2024 12:[address] [facility] Gardnerella vaginalis Negative Negative 08/23/2024 12:[address] [facility] Stefanie Species Negative Negative 12:[address] [facility] Swab Vaginal structure / Unknown 08/22/2024 08/22/2024 7:15 PM EST us Jayla Hodge MD LAB MICROBIOLOGY - GENER AL ORDERABLES Final Result Performing Organization Address City/[facility]/ZIP Co de Phone Number [facility] [address] [place] [address], * Chlamydia trachomatis and Neisseria gonorrhoeae molecular study (08/22/2024 12:00 AM EST) Neisseria gonorrhoeae PCR Negative Negative LAB MOLECULAR DIAGNOSTICS METHOD 08/23/2024 8:[address] [facility] Chlamydia trachomatis PCR Negative Negative LAB MOLECULAR DIAGNOSTICS METHOD 08/23/2024 8:[address] [facility] Swab Cervix uteri structure / Unknown 08/22/2024 08/22/2024 7:15 PM EST us Jayla Hdoge MD LAB MICROBIOLOGY - GENER AL ORDERABLES Final Result [facility] [address] [place] [address], [place] [phone] documented in this encounter Visit Diagnoses Diagnosis Urinary tract infection, site not specified Acute vaginitis Unspecified vaginitis and vulvovaginitis Encounter for screening for infections with a predominantly sexual mode of transmission documented in this encounter Care Teams Neuro Intensivist Physician Relationship Specialty Start Date End Date Nohelia Cobb MD [address] [facility] [place] [address] PCP - General Internal Medicine 07/25/12 documented as of this encounter
--- OUTSIDE RECORDS SUMMARY | 2025-05-10 10:29 | XMS_ITS | Clinical Summary ---
Author Organization [facility] Address [address] [place] [address] Phone Care Team Providers Care Artillery Maintenance Supervisor Name Role Phone Nohelia Cobb MD Primary [...] 04/11/2019, 04/24/2018, Additional history exists COVID-19 VACCINE (1 - 2024-26 season) 2025 RSV VACCINE (1 - 1-dose 75+ series) 2046 SMOKING STATUS SCREENING (Once After 26 Yrs) Completed 11/12/2021 HEPATITIS A VACCINES Aged Out No long er eligible based on patient's age to complete this topic HIB VACCINES Aged Out No longer eligi ble based on patient's age to complete this topic IPV VACCINES Aged Out No longer eligi ble based on patient's age to complete this topic MENINGOCOCCAL VACCINES (ACWY) Aged Out No longer eligible based on patient's age to complete this topic MENINGOCOCCAL VACCINES (B) Aged Out N o longer eligible based on patient's age to complete this topic Medical Devices Not on file Insurance [facility] NON NSPG PCP MALIKA TYLER CONNECTORCARE [employer] NON NSPG PCP SILVER CLARITY CONNECTORCARE [employer] NON NSPG PCP SILVER CLARITY CONNECTORCARE [employer] NON NSPG PCP SILVER CLARITY CONNECTORCARE [employer] NON NSPG PCP SILVER CLARITY CONNECTORCARE [employer] NON NSPG PCP SILVER CLARITY CONNECTORCARE [employer] NON NSPG PCP SILVER CLARITY CONNECTORCARE [employer] NON NSPG PCP SILVER CL[employer]ITY CONNE[employer]CARE [place] NON NSPG PCP SILVER CLARITY CONNECTORCARE Care Teams Artillery Maintenance Supervisor Relationship Specialty Start Date End Date Nohelia Cobb MD [facility] [place] [address] PCP - General Internal Medicine 04/01/19 Additional Source Comments The information contained in this document represents components of the legal health record. It is not the complete legal health record.[facility]
--- OUTSIDE RECORDS SUMMARY | 2025-05-10 10:29 | XMS_ITS | Encounter Summary ---
Author Organization [facility] Address [address] [place] [address] Care Team Providers Care Manager Merchandising Name Role Phone Nohelia Cobb MD Primary Care Provider Encounter Details Date Type Department Care Team (Late st Contact Info) Description 09/11/2024 Lab Requisition [facility] - Main Lab [address] [place] [address] Ahsan Knowles MD [address] [facility] [address] [place], [place] [id number] Urinary tract infection, site not specified; Dysuria [...] Urine No growth 09/13/2024 11:42 AM EDT [facility] Urine Urine specimen obtained by clean catch procedure / Unknown 09/11/2024 4:00 PM EDT 09/12/2024 9:49 AM EDT us Ahsan Knowles MD LAB MICROBIOLOGY - GENERAL ORDER KARTHIKEYAN Final Result [facility] ([facility] [address] [place] [address], documented in this encounter Visit Diagnoses Diagnosis Urinary tract infection, site not specified Dysuria documented in this encounter Care Teams Manager Merchandising Relationship Specialty Start Date End Date Nohelia Cobb MD [address] [place] [address] PCP - General Internal Medicine 07/25/12 documented as of this encounter
--- OUTSIDE RECORDS SUMMARY | 2025-05-10 10:29 | XMS_ITS | Patient Health Record ---
Author [facility] Address [address] [facility] [place] [address] Care Team Providers Care Office Support Name Role Phone Jordyn SUAREZ, Nohelia Patrick Primary Care Provider Un available Mark Minor Unavailable [phone] Allergies Allergen (clinical drug ingredient) Drug/Non Drug [...] Status Risk Notes Problem Acquired hallux valgus (29035557) Hallux valgus (acquired), right foot (M20.11) Active confirmed Problem Acquired hammer toe of right foot (9737576282649 105) Other hammer toe(s) (acquired), right foot (M20.41) Active confirmed Problem Complex regional pain syndrome type I of right lower limb (disorder) (2294333156026 09) Complex regional pain syndrome type 1 [...] X ray : Foot, right 3V 03/11/2019 [id number]- Unna Yelena 12/18/2018 Insurance Providers Payer Name Payer Address Payer Phone Subscriber Number Group Number Insured Name Patient Relationship to Insured Coverage Start Date Coverage End Date R [address] [address] [place] [address] [id number] Lucinda Riley Self - patient is the insured Medical (General) History Medical History History ICD Code asthma Psoriasis Surgical History Surgery Date(Month/Year) hysterectomy 09/2015 breast cyst removed 1992 Juventino R, HT R 2-4,Dislocated sesamoid R Ft 12/06/2018
--- OUTSIDE RECORDS SUMMARY | 2025-05-10 10:29 | XMS_ITS | Clinical Summary ---
Author Organization [address] Address [address] [place] [address] Phone Care Team Providers Care Teaching Music Lessons Name Role Phone Nohelia Cobb MD Primary Care Provider [phone] Surgical History Surgery Date Site/Laterality Comments SECTION [...] Last Done Comments Breast Cancer Screening 1971 Colorectal Cancer Screening: Colonoscopy 1971 Hepatitis A Vaccines (1 of 2 - Risk 2-dose series) 1990 Cervical Cancer Screening: Pap Smear 01/21/1992 Hepatitis B Vaccines (3 of 3 - 19+ 3-dose series) 05/25/2012 12/28/2011, 11/23/2011 DTaP,Tdap,and Td Vaccines (3 - Td or Tdap) 12/29/2019 12/28/2009, 07/03/2000 Pneumococcal Vaccine: 50+ Years (1 of 1 - PCV) 2021 RSV Immunization Adult Patients (1 - Risk 50-74 years 1-dose series) 2021 Zoster Vaccines (1 of 2) 2021 HIV Screening 06/05/2022 Hepatitis C Screening 06/05/2022 Social Influencers of Health Screening 06/05/2022 Depression Screening 07/03/2024 COVID-19 Vaccine (1 - season) 2025 Influenza Vaccine (#1) 2025 9, [...] patient's age to complete this topic Insurance [facility] PL[facility] Care Teams Teaching Music Lessons Relationship Specialty Start Date End Date Nohelia Cobb MD [address] [place] [address] PCP - General Internal Medicine 07/25/12
== END 2025-05-10 10:27 | disposition home or self-care (01) ==
LOC: HO.MAMMO 10:26
PROVIDERS: PCP Internal Medicine; Visit Provider Internal Medicine
DX: Z12.31 Encounter for screening mammogram for malignant neoplasm of breast (principal)
CPT/HCPCS: 77063; 77067

== ENCOUNTER → 2025-05-10 10:30 | Outpatient (BNV) | payer OTHER, SELFPAY | PROVIDERS: PCP Internal Medicine; Visit Provider Internal Medicine | DX: Z12.31 Encounter for screening mammogram for malignant neoplasm of breast (principal) | CPT/HCPCS: 77063; 77067 ==

== ENCOUNTER 2025-06-30 08:54 | Emergency (ER) | payer OTHER, SELFPAY ==
--- NOTE | ~2025-06-30 | XR_ITS ---
EXAMINATION: XR CHEST CLINICAL INFORMATION: RUQ pain COMPARISON: 08/22/2023. 01/31/2021. TECHNIQUE: Frontal view of the chest was obtained. FINDINGS: The cardiac, hilar, and mediastinal contours are normal. The lungs are clear bilaterally. No pneumothorax or effusion. No focal osseous or soft tissue abnormality. XR/XR chest 1V IMPRESSION: Normal chest. Electronically signed by: Chai Alexis MD 06/30/2025 09:31 AM [facility]
[2025-06-30 09:16] VITALS: BP 164/74; PULSE 72; RESP 16; TEMP 36.6; O2SAT 97; BMI 28.1
--- NOTE | 2025-06-30 09:20 | ED.ABDPAIN ---
HPI - Abdominal Pain General Chief Complaint: Abdominal Pain Stated Complaint: r upper quadrant pain Time Seen by Provider: 06/30/25 10:56 History of Present Illness HPI narrative: RME only Related Data Home Medications ?Medication ?Instructions ?Recorded ?Confirmed dupilumab 300 mg/2 mL subcutaneous 300 mg subcut Q2W 03/12/24 03/17/25 pen injector (Dupixent) estradiol 0.5 mg tablet 0.5 mg PO DAILY 08/02/24 03/17/25 mirabegron 25 mg tablet,extended 25 mg PO DAILY 07/01/25 release 24 hr (Myrbetriq) Previous Rx's ?Medication ?Instructions ?Recorded diclofenac sodium 1 % topical gel 2 g topical QID #100 grams 09/22/23 (Voltaren Arthritis Pain) lidocaine 5 % topical patch 1 patch topical DAILY PRN Painful 03/12/24 muscle spasm #30 ea fluticasone propionate 50 1 spray intranasal DAILY PRN 07/11/24 mcg/actuation nasal allergy symptoms #16 grams spray,suspension (Allergy Relief (fluticasone)) famotidine 20 mg tablet 20 mg PO BEDTIME #90 tabs 10/30/24 sennosides 8.6 mg tablet (Natural 17.2 mg (2 x 8.6 mg) PO BEDTIME 03/17/25 Senna Laxative) PRN constipation #60 tabs loratadine 10 mg tablet 10 mg PO DAILY PRN allergy 06/20/25 symptoms #30 tabs omeprazole 20 mg capsule,delayed 20 mg PO DAILY #14 caps 07/01/25 release ondansetron HCl 4 mg tablet 4 mg PO Q8H PRN nausea and 07/01/25 vomiting #10 tabs Allergies Allergy/AdvReac Type Severity Reaction Status Date / Time prochlorperazine (From Allergy Severe htn/tachyca Verified 07/08/25 13:44 COMPAZINE) rdia shellfish derived (SHELLFISH Allergy Severe ANAPHYLAXIS Verified 07/08/25 13:44 DERIVED) ciprofloxacin (CIPROFLOXACIN) Allergy Intermediate HIVES Verified 07/08/25 13:44 PMFSH Past Medical History Medical History Intermittent diarrhea Seasonal allergic rhinitis COVID-19 vaccine series declined History of eczema Right-sided sensorineural hearing loss History of uterine prolapse History of abnormal cervical Pap smear History of asthma Congenital absence of left kidney Muscle spasm Chronic GERD Pneumonia due to COVID-19 virus Hammer toe of right foot Psoriasis Hallux varus (acquired), right foot Complex regional pain syndrome i of right lower limb Surgical menopause Surgical History Hx of colonoscopy History of esophagogastroduodenoscopy (EGD) History of bunionectomy History of lumpectomy of right breast History of section History of total abdominal hysterectomy Family History Family History Father CAD (coronary artery disease) HTN (hypertension) Hyperlipidemia Myocardial infarction Mother Asthma Rheumatoid arthritis Hypoglycemia Maternal Grandmother Diabetes mellitus Asthma CAD (coronary artery disease) Maternal Aunt Diabetes mellitus Brother No problems noted. Sister No problems noted. Son No problems noted. Daughter No problems noted. Social History Social History Housing: House Are you a primary lawn care technician to a significant other at home: No Do you presently have visiting nurse or other home services: No Alcohol intake: current Alcohol intake frequency: a few times a month Alcohol type: wine and hard liquor Patient Tobacco Use Status: Never used Tobacco e-Cigarette/Vaping Use: Never Used service: No Current occupational status: employed Cognitive needs: No Hearing needs: No Vision needs: No Physical Exam ED Vital Signs: Vital Signs - 24 hr 06/30/25 09:16 Temperature 97.9 F Pulse Rate 72 Respiratory Rate 16 Blood Pressure 164/74 H Pulse Oximetry 97 Oxygen Delivery Method Room Air BMI result Body Mass Index 28.1 Course Course Course Narrative: This is a RME preformed in triage by Tori Aj PA-C. Date: 06/30/2025, time 920. Patient presents with RUQ pain: Lucinda reports a several-week history of abdominal discomfort that acutely worsened yesterday. Pain is localized mainly to the anterior abdomen, ?wraps around,? and has remained constant since onset of the acute exacerbation. She rates the current pain as 8/10. She denies radiation to the back, denies exacerbation with food, and denies associated nausea, vomiting, or diarrhea. She notes increased urinary frequency but denies dysuria. No recent travel outside of the [place]. Work UP: abd labs, U/S RUQ Will defer full ROS and PE to treating provider. Patient will continued to be monitored in the interim. Medical Decision Making Lab Data 06/30/25 09:29 06/30/25 09:29 Labs: Lab Results 06/30/25 Range/Units 09:29 WBC 4.4 L (4.8-10.8) X10*3/uL RBC 4.66 (4.20-5.50) X10*6/uL Hgb 14.1 (12.0-16.0) g/dl Hct 42.5 (37.0-47.0) % MCV 91.2 (80.0-98.0) fL MCH 30.3 (27.0-33.0) pg MCHC 33.2 (31.0-35.0) g/dl RDW 12.5 (11.0-16.0) % Plt Count 191 (160-400) X10*3/uL MPV 10.0 (9.4-12.3) fL Immature Gran % (Auto) 0.2 (0.0-0.4) % Neut % (Auto) 48.0 (45-73) % Lymph % (Auto) 40.2 H (20-40) % Ector % (Auto) 7.0 (2-11) % Eos % (Auto) 4.1 H (0-4) % Baso % (Auto) 0.5 (0-2) % Lymph # (Auto) 1.8 (1.2-4.9) X10*3/uL Ector # (Auto) 0.3 (0.1-1.2) X10*3/uL Eos # (Auto) 0.2 (0.0-0.4) X10*3/uL Baso # (Auto) 0.0 (0.0-0.2) X10*3/uL Abs Immat Gran (auto) 0.01 (0.00-0.03) X10*3/uL Absolute Neuts (auto) 2.1 (2.0-8.3) x10*3/uL Absolute Nucleated RBC 0.000 (0.0-0.012) X10*3/uL Nucleated RBC % (auto) 0.0 (0.0-0.2) /100WBC Sodium 142 (135-145) mmol/L Potassium 4.2 (3.3-5.1) mmol/L Chloride 110 H (96-108) mmol/L Carbon Dioxide 26 (22-29) mmol/L Anion Gap 10 L (12-20) BUN 18 H (9-16) mg/dL Creatinine 0.84 (0.5-1.4) mg/dL Estim Creat Clear Calc 61.9 Estimated GFR > 60 Random Glucose 118 H (60-115) mg/dL Calcium 9.3 (8.4-10.2) mg/dL Magnesium 1.9 (1.6-2.6) mg/dL Total Bilirubin 0.4 (0.0-1.0) mg/dL AST 27 (5-31) U/L ALT 33 H (0-31) U/L Alkaline Phosphatase 65 (39-117) U/L Total Protein 7.4 (6.5-8.0) g/dL Albumin 4.6 (3.5-5.0) g/dL Lipase 18 (8-78) U/L Influenza Type A (PCR) NEGATIVE (Negative) Influenza Type B (PCR) NEGATIVE (Negative) RSV RNA Qual (PCR) NEGATIVE (Negative) SARS-CoV-2 RNA (RT-PCR) NEGATIVE (Negative) Discharge Plan Discharge Clinical Impression: Abdominal pain Patient Disposition: Left W/O Completing Treatment Prescriptions: No Action fluticasone propionate [Allergy Relief (fluticasone)] 50 mcg/actuation spray,suspension 1 spray intranasal DAILY PRN (Reason: allergy symptoms) Qty: 16 1RF Rx Instructions: administer into each nostril famotidine 20 mg tablet 20 mg PO BEDTIME Qty: 90 1RF loratadine 10 mg tablet 10 mg PO DAILY PRN (Reason: allergy symptoms) Qty: 30 2RF Dupixent Pen 300 mg/2 mL pen injector 300 mg subcut Q2W lidocaine 5 % adhesive patch,medicated 1 patch topical DAILY PRN (Reason: Painful muscle spasm) Qty: 30 0RF Rx Instructions: leave on most painful area for up to 12 hrs diclofenac sodium [Voltaren Arthritis Pain] 1 % gel 2 g topical QID Qty: 100 0RF Rx Instructions: apply to single elbow, wrist or hand; for hand includes palm/fingers/back of hand estradiol 0.5 mg tablet 0.5 mg PO DAILY mirabegron [Myrbetriq] 25 mg tablet extended release 24 hr 25 mg PO DAILY ondansetron HCl 4 mg tablet 4 mg PO Q8H PRN (Reason: nausea and vomiting) Qty: 10 0RF omeprazole 20 mg capsule,delayed release(DR/EC) 20 mg PO DAILY Qty: 14 0RF sennosides [Natural Senna Laxative] 8.6 mg tablet 17.2 mg PO BEDTIME PRN (Reason: constipation) Qty: 60 3RF Discharge Date/Time: 06/30/25 11:30
[2025-06-30 09:44] LABS: MANUAL DIFF FLAG NO
[2025-06-30 09:45] LABS: Hematocrit 42.5 % (37.0-47.0); Hemoglobin 14.1 g/dl (12.0-16.0); Imm Gran Abs Auto 0.01 X10*3/uL (0.00-0.03); Imm Gran Pct Auto 0.2 % (0.0-0.4); Lymphocytes Absolute Auto 1.8 X10*3/uL (1.2-4.9); Mean Corpuscular HGB Conc 33.2 g/dl (31.0-35.0); Mean Corpuscular Hemoglobin 30.3 pg (27.0-33.0); Mean Corpuscular Volume 91.2 fL (80.0-98.0); NRBC Abs Auto 0.000 X10*3/uL (0.0-0.012); NRBC Pct Auto 0.0 /100WBC (0.0-0.2); Platelet Count 191 X10*3/uL (160-400); Red Blood Count 4.66 X10*6/uL (4.20-5.50); White Blood Count 4.4 X10*3/uL (4.8-10.8)
[2025-06-30 10:03] LABS: Alanine Aminotransferase 33 U/L (0-31); Albumin Level 4.6 g/dL (3.5-5.0); Alkaline Phosphatase 65 U/L (39-117); Anion Gap 10 (12-20); Aspartate Amino Transferase 27 U/L (5-31); Blood Urea Nitrogen 18 mg/dL (9-16); Calcium 9.3 mg/dL (8.4-10.2); Carbon Dioxide 26 mmol/L (22-29); Chloride 110 mmol/L (96-108); Creatinine Clr Calc Pharmacy 61.9; Estimated Glomerular Filt Rate > 60; Lipase 18 U/L (8-78); Magnesium 1.9 mg/dL (1.6-2.6); Potassium 4.2 mmol/L (3.3-5.1); Sodium 142 mmol/L (135-145); Total Protein 7.4 g/dL (6.5-8.0)
--- OUTSIDE RECORDS SUMMARY | 2025-06-30 10:03 | XMS_ITS | Clinical Summary ---
Author Organization [facility] Address [address] [place] [address] Phone Care Team Providers Care Telegraph Operator Name Role Phone Nohelia Cobb MD Primary [...] topic Medical Devices Not on file [facility] PCP MALIKA TYLER CONNE[employer]CARE WE[employer] NON NSPG PCP SILVER CLARITY CONNECTORCARE [employer] NON NSPG PCP SILVER CLARITY CONNECTORCARE [employer] NON NSPG PCP SILVER CLARITY CONNECTORCARE [employer] NON NSPG PCP SILVER CLARITY CONNECTORCARE [employer] NON NSPG PCP SILVER CLARITY CONNECTORCARE [employer] NON NSPG PCP SILVER CLARITY CONNECTORCARE [facility] NON NSPG PCP SILVER CLARITY CONNECTORCARE [place] [facility] NON NSPG PCP SILVER CLARITY CONNECTORCARE Care Teams Telegraph Operator Relationship Specialty Start Date End Date Nohelia Cbob MD [facility] [place] [address] PCP - General Internal Medicine 04/01/19 Additional Source Comments The information contained in this document represents components of the legal health record. It is not the complete legal health record.[facility]
--- OUTSIDE RECORDS SUMMARY | 2025-06-30 10:03 | XMS_ITS | Patient Health Record ---
Author Organization [facility] Address [address] [facility] [place] [address] Care Team Providers Care Craft Manager Name Role Phone Jordyn SUAREZ, Nohelia Patrick Primary Care Provider Un available Mark Minor Unavailable [phone] Allergies Allergen (clinical drug ingredient) Drug/Non Drug [...] Status Risk Notes Problem Acquired hallux valgus (79412497) Hallux valgus (acquired), right foot (M20.11) Active confirmed Problem Acquired hammer toe of right foot (1828211832999 105) Other hammer toe(s) (acquired), right foot (M20.41) Active confirmed Problem Complex regional pain syndrome type I of right lower limb (disorder) (2994930806129 09) Complex regional pain syndrome type 1 [...] X ray : Foot, right 3V 03/11/2019 [id number]- Unna Yelena 12/18/2018 Insurance Providers Payer Name Payer Address Payer Phone Subscriber Number Group Number Insured Name Patient Relationship to Insured Coverage Start Date Coverage End Date R [address] [address] [place] [address] [id number] Lucinda Riley Self - patient is the insured Medical (General) History Medical History History ICD Code asthma Psoriasis Surgical History Surgery Date(Month/Year) hysterectomy 09/2015 breast cyst removed 1992 Juventino R, HT R 2-4,Dislocated sesamoid R Ft 12/06/2018
--- OUTSIDE RECORDS SUMMARY | 2025-06-30 10:03 | XMS_ITS | Clinical Summary ---
Author Organization [address] Address [address] [place] [phone] Phone Care Team Providers Care Land Title Examiner Name Role Phone Nohelia Cobb MD Primary [...] on file Sexual Orientation Not on file Plan of Treatment Health Maintenance Due Date [...] patient's age to complete this topic Insurance [facility] PLAN Care Teams Land Title Examiner Relationship Specialty Start Date End Date Nohelia Cobb MD [address] [facility] [place] [address] PCP - General Internal Medicine 07/25/12
--- OUTSIDE RECORDS SUMMARY | 2025-06-30 10:03 | XMS_ITS | Encounter Summary ---
Author Organization [facility] Address [address] [place] [address] Care Team Providers Care It Security Analyst Name Role Phone Nohelia Cobb MD Primary Care Provider [phone] Encounter Details Date Type Department Care Team (Late st Contact Info) Description 09/11/2024 Lab Requisition [facility] - Main Lab [address] [place] [address] Ahsan Knowles MD [address] [facility] [address] [place], [place] [id number] Urinary tract infection, site not specified; Dysuria [...] Urine No growth 09/13/2024 11:42 AM EDT [facility] Urine Urine specimen obtained by clean catch procedure / Unknown 09/11/2024 4:00 PM EDT 09/12/2024 9:49 AM EDT us Ahsan Knowles MD LAB MICROBIOLOGY - GENERAL ORDER KATRHIKEYAN Final Result [facility] [address] [place] [address], documented in this encounter Visit Diagnoses Diagnosis Urinary tract infection, site not specified Dysuria documented in this encounter Care Teams It Security Analyst Relationship Specialty Start Date End Date Nohelia Cobb MD [address] [place] [address] PCP - General Internal Medicine 07/25/12 documented as of this encounter
--- OUTSIDE RECORDS SUMMARY | 2025-06-30 10:03 | XMS_ITS | Encounter Summary ---
Author Organization [facility] Address [address] [place] [phone] Care Team Providers Care Grain Cleaner Name Role Phone Nohelia Cobb MD Primary Care Provider [phone] Encounter Details Date Type Department Care Team (Latest Contact Info) Description 08/22/2024 Lab Requisition [facility] - Main Lab [address] [facility] [place] [address] Jayla Hodge MD 299 [facility] [address] [place] [address] Urinary tract infection, site [...] reflex microscopic (08/22/2024 12:00 AM EST) Specific [place] Urine 1.020 1.003 - 1.030 LAB URINALYSIS - AUTOMATED METHOD 08/22/2024 8:46 PM [facility] pH, Urine 7.5 5.0 - 8.0 pH LAB URINALYSIS - AUTOMATED METHOD 08/22/2024 8:46 PM [facility] Leukocytes, Urine Negative Negative LAB URINALYSIS - AUTOMATED METHOD 08/22/2024 8:46 PM [facility] Nitrite, Urine Positive(A) Negative LAB URINALYSIS - AUTOMATED METHOD 08/22/2024 8:46 PM [facility] Protein, Urine Negative <=Trace mg/dL LAB URINALYSIS - AUTOMATED METHOD 08/22/2024 8:46 PM [facility] Glucose, Urine Negative Negative mg/dL LAB URINALYSIS - AUTOMATED METHOD 08/22/2024 8:46 PM [facility] Ketones, Urine Negative Negative mg/dL LAB URINALYSIS - AUTOMATED METHOD 08/22/2024 8:46 PM [facility] Urobilinogen , Urine 1.0 0.2 - 1.0 mg/dL LAB URINALYSIS - AUTOMATED METHOD 08/22/2024 8:46 PM [facility] Bilirubin, Urine Negative Negative LAB URINALYSIS - AUTOMATED METHOD 08/22/2024 8:46 PM [facility] Blood, Urine Negative Negative LAB URINALYSIS - AUTOMATED METHOD 08/22/2024 8:46 PM [facility] RBC, Urine 1.6 0 - 4 /HPF LAB URINALYSIS - AUTOMATED METHOD 08/22/2024 8:46 PM [facility] WBC, Urine 0.4 0 - 4 /HPF LAB URINALYSIS - AUTOMATED METHOD 08/22/2024 8:46 PM [facility] Squamous Epithelial, Urine 37 0 - 60 /LPF LAB URINALYSIS - AUTOMATED METHOD 08/22/2024 8:46 PM [facility] Hyaline Casts, Urine 0.8 0 - 3 /LPF LAB URINALYSIS - AUTOMATED METHOD 08/22/2024 8:46 PM [facility] Urine Urine specimen obtained by clean catch procedure / Unknown 08/22/2024 08/22/2024 7:15 PM EST us Jayla Hodge MD LAB URINE ORDERABLES Fin al Result [facility] [address] [place] [address], [place] [phone] * Culture urine (08/22/2024 12:00 AM EST) Culture, Urine No growth 08/23/2024 1:15 PM [facility] Urine Urine specimen obtained by clean catch procedure / Unknown 08/22/2024 08/22/2024 7:15 PM EST us Jayla Hodge MD LAB MICROBIOLOGY - GENER AL ORDERABLES Final Result [facility] [address] [place] [address], [place] [phone] * Vaginitis pathogens molecular study (08/22/2024 12:00 AM EST) Trichomonas vaginalis Negative Negative 08/23/2024 12:35 PM EST [facility] Gardnerella vaginalis Negative Negative 08/23/2024 12:35 PM EST [facility] Stefanie Species Negative Negative 12:35 PM EST [facility] Swab Vaginal structure / Unknown 08/22/2024 08/22/2024 7:15 PM EST us Jayla Hodge MD LAB MICROBIOLOGY - GENER AL ORDERABLES Final Result Performing Organization Address City/[facility]/ZIP Co de Phone Number [facility] [address] [place] [address], * Chlamydia trachomatis and Neisseria gonorrhoeae molecular study (08/22/2024 12:00 AM EST) Neisseria gonorrhoeae PCR Negative Negative LAB MOLECULAR DIAGNOSTICS METHOD 08/23/2024 8:49 AM EST [facility] Chlamydia trachomatis PCR Negative Negative LAB MOLECULAR DIAGNOSTICS METHOD 08/23/2024 8:49 AM EST [facility] Swab Cervix uteri structure / Unknown 08/22/2024 08/22/2024 7:15 PM EST us Jayla Hodge MD LAB MICROBIOLOGY - GENER AL ORDERABLES Final Result [facility] [address] [place] [address], [place] [phone] documented in this encounter Visit Diagnoses Diagnosis Urinary tract infection, site not specified Acute vaginitis Unspecified vaginitis and vulvovaginitis Encounter for screening for infections with a predominantly sexual mode of transmission documented in this encounter Care Teams Grain Cleaner Relationship Specialty Start Date End Date Nohelia Cobb MD [address] [facility] [place] [address] PCP - General Internal Medicine 07/25/12 documented as of this encounter
[2025-06-30 10:34] LABS: Resp Syncy Virus RNA Qual PCR NEGATIVE (Negative); SARS COV2 PCR INHOUSE NEGATIVE (Negative)
--- NOTE | 2025-06-30 11:23 | PC.NURSE ---
Unable to locate patient. ultrasound department aware. will make provider aware as well.
== END 2025-06-30 11:30 | disposition left against medical advice (07) ==
PROVIDERS: Physician Assistant Medical; Emergency Provider Emergency Medicine; PCP Internal Medicine
DX: R10.11 Right upper quadrant pain (principal); R35.0 Frequency of micturition; Z79.899 Other long term (current) drug therapy; Z03.818 Encounter for observation for suspected exposure to other biological agents ruled out
CPT/HCPCS: 36415; 71045; 80053; 83690; 83735; 85025; 87637; 99281

== ENCOUNTER → 2025-06-30 09:20 | Outpatient (BNV) | payer OTHER, SELFPAY | PROVIDERS: PCP Internal Medicine; Visit Provider Radiology Diagnostic Radiology | DX: R10.11 Right upper quadrant pain (principal) | CPT/HCPCS: 71045 ==

== ENCOUNTER 2025-07-01 11:21 | Outpatient (AMB) | payer OTHER, SELFPAY ==
--- NOTE | 2025-07-01 11:25 | AM.OFFWIN_ITS ---
Intake Vital Signs 07/01/25 11:31 Height 4 ft 11 in Weight 140 lb BMI 28.3 BP 126/78 Blood Pressure Location Lt brachial Position Sitting Pulse 92 Pulse Source Pulse Oximeter Temp 98.1 F Temp Source Oral Pulse Oximetry (%) 97 Oxygen Delivery Method Room Air Intake Visit Reasons: EP-rt side abdominal pain, nausea Intake Note: pt presents with right sided abdominal pain radiating around to right flank for about a month and worsening x2 days along with nausea and loose stool yellow in appearance Patient Tobacco Use Status: Never used Tobacco Allergies prochlorperazine (From COMPAZINE) Allergy (Severe, Verified 07/01/25 11:35) htn/tachycardia shellfish derived (SHELLFISH DERIVED) Allergy (Severe, Verified 07/01/25 11:35) ANAPHYLAXIS ciprofloxacin (CIPROFLOXACIN) Allergy (Intermediate, Verified 07/01/25 11:35) HIVES Do you need a note to return to daycare/school/sports/work: Yes HPI HPI Comments History of Present Illness Details Patient is a 55yo F who presents for a month of GI symptoms States nausea and loose stool States stool is yellow in coloration Has tried milanta, tums, pepto bismol, omeprazole with little improvement of symptoms States 2 days of terrible epigastric pain Went to [place] [facility] yesterday due to severe pain She said she had xray and blood work completed but without being seen. Chest xray clear According to blood work: No leukocytosis or elevated Lipase. + elevated ALT but t bili and AST were wnl (she has elevated AST and ALT in the past) No troponin or EKG was obtained She said pain is constant, pain level is 8/10 States epigastric and wraps around RUQ. Describes as pressure constantly She said it doesnt hurt when she pushes on her abdomen Pt denies SOB or CP Denies CP or SOB She sees [place] [facility] and unable to be seen until August; this summer had nuclear hepatic scan which showed normal CBD and GB ejection fraction at 35% No dysuria or urgency. Admits to frequency but unchanged No hematuria Last episode of emesis was 2 days ago She has been able to eat and drink but said food makes her more nausea She said sometimes when she had pizza it made the pain worse [facility] Medical History Intermittent diarrhea Seasonal allergic rhinitis COVID-19 vaccine series declined History of eczema Right-sided sensorineural hearing loss History of uterine prolapse History of abnormal cervical Pap smear History of asthma Congenital absence of left kidney Muscle spasm Chronic GERD Pneumonia due to COVID-19 virus Hammer toe of right foot Psoriasis Hallux varus (acquired), right foot Complex regional pain syndrome i of right lower limb Surgical menopause Surgical History Hx of colonoscopy History of esophagogastroduodenoscopy (EGD) History of bunionectomy History of lumpectomy of right breast History of section History of total abdominal hysterectomy Family History Father CAD (coronary artery disease) HTN (hypertension) Hyperlipidemia Myocardial infarction Mother Asthma Rheumatoid arthritis Hypoglycemia Maternal Grandmother Diabetes mellitus Asthma CAD (coronary artery disease) Maternal Aunt Diabetes mellitus Brother No problems noted. Sister No problems noted. Son No problems noted. Daughter No problems noted. Social History Housing: House Are you a primary director of managed care to a significant other at home: No Do you presently have visiting nurse or other home services: No Alcohol intake: current Alcohol intake frequency: a few times a month Alcohol type: wine and hard liquor Patient Tobacco Use Status: Never used Tobacco e-Cigarette/Vaping Use: Never Used service: No Current occupational status: employed Cognitive needs: No Hearing needs: No Vision needs: No Review of Systems Const Denies chills, Denies fever(s) and Reports poor appetite ENT Denies nasal congestion and Denies sore throat Card Denies chest pain, Denies syncope and Denies dyspnea Resp Denies chest congestion, Denies cough and Denies dyspnea GI Reports abdominal pain, Denies constipation, Reports diarrhea (loose yellow stools x 1 month), Reports nausea and Reports vomiting Denies difficulty voiding, Denies flank pain, Denies urinary hesitancy and Denies urinary urgency Musc Reports back pain (abdominal pain radiates into the back) Skin/Breast Denies rash Neuro Denies syncope Physical Exam Exam Exam: General: Non-toxic, NAD. Speaking full sentences. Skin: Warm dry throughout. No vesicular lesions/rash noted to posterior back, R flank or anterior abdomen Eye: PERRL, EOMI HENT: Airway patent. Uvula midline. No pharyngeal erythema or edema. No HELP DESK SUPERVISOR. Oral mucosa is moist Bilateral canals clear. TM non-erythematous, non-bulging. No TM perforation or hemotympanum noted. Respiratory: CTA bilaterally. No wheezes, rales or rhonchi Cardiac: RRR. No murmur Abdominal: BS present. Non-tender throughout to light palpation. Questionable + [place] sign on exam. I appreciated sensation of respiration and pt states pain felt in back with this. No palpable masses. No abdominal distention or CVAT bilaterally MSK: Full ROM extremities. Neurology: Alert. No aphasia or facial droop. Gait without abnormality Psych: Good mood and affect Vital Signs: Last Vital Signs Temp 98.1 F 07/01/25 11:31 Pulse 92 07/01/25 11:31 BP 126/78 07/01/25 11:31 Pulse Ox 97 07/01/25 11:31 Oxygen Delivery Method Room Air 07/01/25 11:31 BMI result Body Mass Index 28.3 Assessment & Plan Assessment & Plan (1) Epigastric pain: Code(s): R10.13 - Epigastric pain Plan: Patient seen and evaluated. I reviewed labs/imaging from ER yesterday - Chest xray no pneumonia - Blood work shows no leukocytosis or elevated lipase - ALT elevated slightly but it has been in the past - BP improved from ER yesterday EKG will be obtained in office to look for abnormal cardiac presentation; EKG was 65bpm, No STEMI, + NSR Differential includes: H pylori, acute cholecystitis, pancreatitis, Gastritis, Gastric ulcer, ACS, GI bleed (unlikely due to no brbpr or melena) Her EKG shows no acute cardiac abnormality. I discussed with pt the best place to be able to obtain imaging the fastest would be to manage in the ER. She refused to go. She said she does not want to wait I discussed that GB US can not be ordered from but will order repeat labs and add an H pylori. She was given scripts for zofran and omeprazole. She is aware there are multiple diagnoses not ruled out in differential. She will monitor symptoms for worsening such as onset CP, SOB, worsening abdomial pain, fever, etc and go directly to the ER Message sent to patient's PCP for close follow up Patient gave verbal understanding and had no additional questions or concerns at time of discharge All questions answered (2) Abdominal pain: Code(s): R10.9 - Unspecified abdominal pain Qualifiers: Abdominal location: right upper quadrant Qualified Code(s): R10.11 - Right upper quadrant pain Plan: see above Orders: Orders AMB EKG-In Office Today R10.13 - Epigastric pain H pylori Ag Stool Today R10.11 - Right upper quadrant pain Complete Blood Count Auto Diff Today R10.11 - Right upper quadrant pain Comprehensive Met. Panel Today R10.11 - Right upper quadrant pain Medications: New omeprazole 20 mg PO DAILY 14 caps 0RF ondansetron HCl 4 mg PO Q8H PRN 10 tabs 0RF nausea and vomiting Coding Level of Care Code Est Pt Level 4 (88700) Diagnoses Epigastric pain R10.13 Abdominal pain R10.11 Abdominal location: right upper quadrant
[2025-07-01 11:31] VITALS: BP 126/78; PULSE 92; TEMP 36.7; O2SAT 97; BMI 28.3
--- OUTSIDE RECORDS SUMMARY | 2025-07-01 15:25 | XMS_ITS | Clinical Summary ---
Author Organization [facility] Address [address] [place] [phone] Phone Care Team Providers Care Foundry Tender Name Role Phone Nohelia oCbb MD Primary Care Provider Allergies Active Allergy [...] topic Medical Devices Not on file [facility] PCP MALIKA T[place]ER CONNECTORCARE [employer] NON NSPG PCP SILVER CLARITY CONNE[employer]CARE [employer] NON NSPG PCP SILVER CLARITY CONNECTORCARE [employer] NON NSPG PCP SILVER CLARITY CONNECTORCARE [employer] NON NSPG PCP SILVER CLARITY CONNECTORCARE [employer] NON NSPG PCP SILVER CLARITY CONNECTORCARE [employer] NON NSPG PCP SILVER CLARITY CONNECTORCARE [facility] NON NSPG PCP SILVER CLARITY CONNECTORCARE [facility] NON NSPG PCP SILVER CLARITY CONNECTORCARE Care Teams Foundry Tender Relationship Specialty Start Date End Date Nohelia Cobb MD [facility] [place] [address] PCP - General Internal Medicine 04/01/19 Additional Source Comments The information contained in this document represents components of the legal health record. It is not the complete legal health record.[facility]
--- OUTSIDE RECORDS SUMMARY | 2025-07-01 15:25 | XMS_ITS | Encounter Summary ---
Author Organization [facility] Address [address] [place] [address] Care Team Providers Care Diamond Merchant Name Role Phone Nohelia Cobb MD Primary Care Provider Encounter Details Date Type Department Care Team (Late st Contact Info) Description 09/11/2024 Lab Requisition [facility] - Main Lab [address] [place] [address] Ahsan Knowles MD [address] [facility] [address] [place], [place] [id number] Urinary tract infection, site not specified; Dysuria [...] Urine No growth 09/13/2024 11:42 AM EDT [facility] Urine Urine specimen obtained by clean catch procedure / Unknown 09/11/2024 4:00 PM EDT 09/12/2024 9:49 AM EDT us Ahsan Knowles MD LAB MICROBIOLOGY - GENERAL ORDER KARTHIKEYAN Final Result [facility] [address] [place] [address], documented in this encounter Visit Diagnoses Diagnosis Urinary tract infection, site not specified Dysuria documented in this encounter Care Teams Diamond Merchant Relationship Specialty Start Date End Date Nohelia Cobb MD [address] [place] [address] PCP - General Internal Medicine 07/25/12 documented as of this encounter
--- OUTSIDE RECORDS SUMMARY | 2025-07-01 15:25 | XMS_ITS | Patient Health Record ---
Author Organization [facility] Address [address] [facility] [place] [address] Care Team Providers Care Mechanic Senior Name Role Phone Jordyn SUAREZ, Nohelia Patrick Primary Care Provider Un available Mark Minor Unavailable [phone] Allergies Allergen (clinical drug ingredient) Drug/Non Drug [...] Status Risk Notes Problem Acquired hallux valgus (39114097) Hallux valgus (acquired), right foot (M20.11) Active confirmed Problem Acquired hammer toe of right foot (1161431871496 105) Other hammer toe(s) (acquired), right foot (M20.41) Active confirmed Problem Complex regional pain syndrome type I of right lower limb (disorder) (1587573978633 09) Complex regional pain syndrome type 1 [...] X ray : Foot, right 3V 03/11/2019 [id number] Unna Yelena 12/18/2018 Insurance Providers Payer Name Payer Address Payer Phone Subscriber Number Group Number Insured Name Patient Relationship to Insured Coverage Start Date Coverage End Date R [address] [address] [place] [address] [id number] Lucinda Riley Self - patient is the insured Medical (General) History Medical History History ICD Code asthma Psoriasis Surgical History Surgery Date(Month/Year) hysterectomy 09/2015 breast cyst removed 1992 [place] R, HT R 2-4,Dislocated sesamoid R Ft 12/06/2018
--- OUTSIDE RECORDS SUMMARY | 2025-07-01 15:25 | XMS_ITS | Clinical Summary ---
Author Organization [address] Address [address] [place] [phone] Phone Care Team Providers Care Automatic Hemmer Name Role Phone Nohelia Cobb MD Primary Care Provider [phone] Surgical History Surgery Date Site/Laterality Comments SECTION [...] patient's age to complete this topic Insurance [facility] Care Teams Automatic Hemmer Relationship Specialty Start Date End Date Nohelia Cobb MD [address] [place] [address] PCP - General Internal Medicine 07/25/12
--- OUTSIDE RECORDS SUMMARY | 2025-07-01 15:25 | XMS_ITS | Encounter Summary ---
Author Organization [facility] Address [address] [place] [phone] Care Team Providers Care Cloth Bleaching Range Operator Chief Name Role Phone Nohelia Cobb MD Primary Care Provider Encounter Details Date Type Department Care Team (Latest Contact Info) Description 08/22/2024 Lab Requisition [facility] - Main Lab 299 [facility] [employer] [place] [address] Jayla Hodge MD 299 [facility] [address] [place] [address] Urinary tract infection, site not [...] reflex microscopic (08/22/2024 12:00 AM EST) Specific [place] Urine 1.020 1.003 - 1.030 LAB URINALYSIS - AUTOMATED METHOD 08/22/2024 8:46 PM [facility] pH, Urine 7.5 5.0 - 8.0 pH LAB URINALYSIS - AUTOMATED METHOD 08/22/2024 8:46 PM [facility] Leukocytes, Urine Negative Negative LAB URINALYSIS - AUTOMATED METHOD 08/22/2024 8:46 PM [facility] Nitrite, Urine Positive(A) Negative LAB URINALYSIS - AUTOMATED METHOD 08/22/2024 8:46 PM [facility] Protein, Urine Negative <=Trace mg/dL LAB URINALYSIS - AUTOMATED METHOD 08/22/2024 8:46 PM [facility] Glucose, Urine Negative Negative mg/dL LAB URINALYSIS - AUTOMATED METHOD 08/22/2024 8:46 PM [facility] Ketones, Urine Negative Negative mg/dL LAB URINALYSIS - AUTOMATED METHOD 08/22/2024 8:46 PM [facility] Urobilinogen , Urine 1.0 0.2 - 1.0 mg/dL LAB URINALYSIS - AUTOMATED METHOD 08/22/2024 8:46 PM [facility] Bilirubin, Urine Negative Negative LAB URINALYSIS - AUTOMATED METHOD 08/22/2024 8:46 PM [facility] Blood, Urine Negative Negative LAB URINALYSIS - AUTOMATED METHOD 08/22/2024 8:46 PM [facility] RBC, Urine 1.6 0 - 4 /HPF LAB URINALYSIS - AUTOMATED METHOD 08/22/2024 8:46 PM [facility] WBC, Urine 0.4 0 - 4 /HPF LAB URINALYSIS - AUTOMATED METHOD 08/22/2024 8:46 PM [facility] Squamous Epithelial, Urine 37 0 - 60 /LPF LAB URINALYSIS - AUTOMATED METHOD 08/22/2024 8:46 PM [facility] Hyaline Casts, Urine 0.8 0 - 3 /LPF LAB URINALYSIS - AUTOMATED METHOD 08/22/2024 8:46 PM [facility] Urine Urine specimen obtained by clean catch procedure / Unknown 08/22/2024 08/22/2024 7:15 PM EST us Jayla Hodge MD LAB URINE ORDERABLES Fin al Result [facility] [address] [place] [address], [place] [phone] * Culture urine (08/22/2024 12:00 AM EST) Culture, Urine No growth 08/23/2024 1:15 PM [facility] Urine Urine specimen obtained by clean catch procedure / Unknown 08/22/2024 08/22/2024 7:15 PM EST us Jayla Hodge MD LAB MICROBIOLOGY - GENER AL ORDERABLES Final Result [facility] [address] [place] [address], [place] [phone] * Vaginitis pathogens molecular study (08/22/2024 12:00 AM EST) Trichomonas vaginalis Negative Negative 08/23/2024 12:35 PM EST [facility] Gardnerella vaginalis Negative Negative 08/23/2024 12:35 PM EST [facility] Stefanie Species Negative Negative 12:35 PM EST [facility] Swab Vaginal structure / Unknown 08/22/2024 08/22/2024 7:15 PM EST us Jayla Hodge MD LAB MICROBIOLOGY - GENER AL ORDERABLES Final Result Performing Organization Address City/[facility]/ZIP Co de Phone Number [facility] [address] [place] [address], * Chlamydia trachomatis and Neisseria gonorrhoeae molecular study (08/22/2024 12:00 AM EST) Neisseria gonorrhoeae PCR Negative Negative LAB MOLECULAR DIAGNOSTICS METHOD 08/23/2024 8:49 AM EST [facility] Chlamydia trachomatis PCR Negative Negative LAB MOLECULAR DIAGNOSTICS METHOD 08/23/2024 8:49 AM EST [facility] Swab Cervix uteri structure / Unknown 08/22/2024 08/22/2024 7:15 PM EST us Jayla Hodge MD LAB MICROBIOLOGY - GENER AL ORDERABLES Final Result [facility] [address] [place] [address], [place] [phone] documented in this encounter Visit Diagnoses Diagnosis Urinary tract infection, site not specified Acute vaginitis Unspecified vaginitis and vulvovaginitis Encounter for screening for infections with a predominantly sexual mode of transmission documented in this encounter Care Teams Cloth Bleaching Range Operator Chief Relationship Specialty Start Date End Date Nohelia Cobb MD [address] [place] [facility] [place] [address] PCP - General Internal Medicine 07/25/12 documented as of this encounter
== END 2025-07-01 13:34 | disposition home or self-care (01) ==
PROVIDERS: PCP Internal Medicine; Visit Provider Physician Assistant
DX: R10.13 Epigastric pain (principal); R10.11 Right upper quadrant pain

== ENCOUNTER 2025-07-01 11:21 | Outpatient (REF) | payer OTHER, SELFPAY ==
[2025-07-01 16:17] LABS: MANUAL DIFF FLAG NO
[2025-07-01 16:33] LABS: Hematocrit 40.8 % (37.0-47.0); Hemoglobin 13.5 g/dl (12.0-16.0); Imm Gran Abs Auto 0.02 X10*3/uL (0.00-0.03); Imm Gran Pct Auto 0.4 % (0.0-0.4); Lymphocytes Absolute Auto 1.9 X10*3/uL (1.2-4.9); Mean Corpuscular HGB Conc 33.1 g/dl (31.0-35.0); Mean Corpuscular Hemoglobin 30.3 pg (27.0-33.0); Mean Corpuscular Volume 91.5 fL (80.0-98.0); NRBC Abs Auto 0.000 X10*3/uL (0.0-0.012); NRBC Pct Auto 0.0 /100WBC (0.0-0.2); Platelet Count 198 X10*3/uL (160-400); Red Blood Count 4.46 X10*6/uL (4.20-5.50); White Blood Count 5.2 X10*3/uL (4.8-10.8)
[2025-07-01 16:39] LABS: Alanine Aminotransferase 41 U/L (0-31); Albumin Level 4.5 g/dL (3.5-5.0); Alkaline Phosphatase 67 U/L (39-117); Anion Gap 11 (12-20); Aspartate Amino Transferase 31 U/L (5-31); Blood Urea Nitrogen 17 mg/dL (9-16); Calcium 9.5 mg/dL (8.4-10.2); Carbon Dioxide 23 mmol/L (22-29); Chloride 111 mmol/L (96-108); Estimated Glomerular Filt Rate > 60; Potassium 4.1 mmol/L (3.3-5.1); Sodium 141 mmol/L (135-145); Total Protein 7.0 g/dL (6.5-8.0)
== END 2025-07-01 11:22 | disposition home or self-care (01) ==
LOC: HO.HMGCLDS 11:21
PROVIDERS: PCP Internal Medicine; Visit Provider Physician Assistant
DX: R10.13 Epigastric pain (principal); R10.11 Right upper quadrant pain
CPT/HCPCS: 36415; 80053; 85025; 99212

== ENCOUNTER 2025-07-02 10:50 | Outpatient (REF) | payer OTHER, SELFPAY ==
--- OUTSIDE RECORDS SUMMARY | 2025-07-02 12:45 | XMS_ITS | Clinical Summary ---
Author Organization [address] Address [address] [place] [phone] Phone Care Team Providers Care Systems Librarian Name Role Phone Nohelia Cobb MD Primary [...] patient's age to complete this topic Insurance [facility] [employer] Care Teams Systems Librarian Relationship Specialty Start Date End Date Nohelia Cobb MD [address] [place] [address] PCP - General Internal Medicine 07/25/12
--- OUTSIDE RECORDS SUMMARY | 2025-07-02 12:46 | XMS_ITS | Encounter Summary ---
Author Organization [facility] Address [address] [place] [address] Care Team Providers Care Check Pilot Name Role Phone Nohelia Cobb MD Primary Care Provider Encounter Details Date Type Department Care Team (Late st Contact Info) Description 09/11/2024 Lab Requisition [facility] - Main Lab [address] [place] [address] Ahsan Knowles MD [address] [facility] [address] [place], [place] [phone] Urinary tract infection, site not specified; Dysuria [...] Urine No growth 09/13/2024 11:42 AM EDT [facility] Urine Urine specimen obtained by clean catch procedure / Unknown 09/11/2024 4:00 PM EDT 09/12/2024 9:49 AM EDT us Ahsan Knowles MD LAB MICROBIOLOGY - GENERAL ORDER KARTHIKEYAN Final Result [facility] [address] [place] [address], documented in this encounter Visit Diagnoses Diagnosis Urinary tract infection, site not specified Dysuria documented in this encounter Care Teams Check Pilot Relationship Specialty Start Date End Date Nohelia Cobb MD [address] [place] [address] PCP - General Internal Medicine 07/25/12 documented as of this encounter
--- OUTSIDE RECORDS SUMMARY | 2025-07-02 12:46 | XMS_ITS | Patient Health Record ---
[facility] Address [address] [place] [address] Care Team Providers Care Relocation Commissioner Name Role Phone Jordyn SUAREZ, Nohelia Patrick Primary Care Provider Un available Mark Minor Unavailable [phone] Allergies Allergen (clinical drug ingredient) Drug/Non Drug [...] Status Risk Notes Problem Acquired hallux valgus (99962391) Hallux valgus (acquired), right foot (M20.11) Active confirmed Problem Acquired hammer toe of right foot (9188162555418 105) Other hammer toe(s) (acquired), right foot (M20.41) Active confirmed Problem Complex regional pain syndrome type I of right lower limb (disorder) (0651178058570 09) Complex regional pain syndrome type 1 [...] X ray : Foot, right 3V 03/11/2019 [id number]- Unna Yelena 12/18/2018 Insurance Providers Payer Name Payer Address Payer Phone Subscriber Number Group Number Insured Name Patient Relationship to Insured Coverage Start Date Coverage End Date R [address] [address] [place] [address] [phone] [id number] Lucinda Riley Self - patient is the insured Medical (General) History Medical History History ICD Code asthma Psoriasis Surgical History Surgery Date(Month/Year) hysterectomy 09/2015 breast cyst removed 1992 [place] R, HT R 2-4,Dislocated sesamoid R Ft 12/06/2018
--- OUTSIDE RECORDS SUMMARY | 2025-07-02 12:46 | XMS_ITS | Encounter Summary ---
Author Organization [facility] Address [address] [place] [id number] Care Team Providers Care Veteran Appeals Reviewer Name Role Phone Nohelia Cobb MD Primary Care Provider [phone] Encounter Details Date Type Department Care Team (Latest Contact Info) Description 08/22/2024 Lab Requisition [facility] - Main Lab [address] [place] [address] Jayla Hodge MD [address] [facility] [address] [place] [address] Urinary tract infection, site not [...] reflex microscopic (08/22/2024 12:00 AM EST) Specific Taylor Urine 1.020 1.003 - 1.030 LAB URINALYSIS [...] MD LAB URINE ORDERABLES Fin al Result [facility] [address] [place] [address], [place] [phone] * Culture urine (08/22/2024 12:00 AM EST) Culture, Urine No growth 08/23/2024 1:15 PM [facility] Urine Urine specimen obtained by clean catch procedure / Unknown 08/22/2024 08/22/2024 7:15 PM EST us Jayla Hodge MD LAB MICROBIOLOGY - GENER AL ORDERABLES Final Result [facility] [address] [place] [address], [place] [phone] * Vaginitis pathogens molecular study (08/22/2024 12:00 AM EST) Trichomonas vaginalis Negative Negative 08/23/2024 12:35 PM EST [facility] Gardnerella vaginalis Negative Negative 08/23/2024 12:35 PM EST [facility] Stefanie Species Negative Negative 12:35 PM EST [facility] Swab Vaginal structure / Unknown 08/22/2024 08/22/2024 7:15 PM EST us Jayla Hodge MD LAB MICROBIOLOGY - GENER AL ORDERABLES Final Result Performing Organization Address City/[facility]/ZIP Co de Phone Number [facility] [address] [place] [address], * Chlamydia trachomatis and Neisseria gonorrhoeae molecular study (08/22/2024 12:00 AM EST) Neisseria gonorrhoeae PCR Negative Negative LAB MOLECULAR DIAGNOSTICS METHOD 08/23/2024 8:49 AM EST [facility] Chlamydia trachomatis PCR Negative Negative LAB MOLECULAR DIAGNOSTICS METHOD 08/23/2024 8:49 AM EST [facility] Swab Cervix uteri structure / Unknown 08/22/2024 08/22/2024 7:15 PM EST us Jayla Hodge MD LAB MICROBIOLOGY - GENER AL ORDERABLES Final Result [facility] [address] [place] [address], [place] [phone] documented in this encounter Visit Diagnoses Diagnosis Urinary tract infection, site not specified Acute vaginitis Unspecified vaginitis and vulvovaginitis Encounter for screening for infections with a predominantly sexual mode of transmission documented in this encounter Care Teams Veteran Appeals Reviewer Relationship Specialty Start Date End Date Nohelia Cobb MD [address] [facility] [place] [address] PCP - General Internal Medicine 07/25/12 documented as of this encounter
--- OUTSIDE RECORDS SUMMARY | 2025-07-02 12:46 | XMS_ITS | Clinical Summary ---
Author Organization [facility] Address [address] [place] [id number] Phone Care Team Providers Care Field Engineer Name Role Phone Nohelia Cobb MD Primary [...] topic Medical Devices Not on file [facility] PCP MALIKA TYLER CONNECTORCARE [employer] NON NSPG PCP [employer] NON NSPG PCP [employer] CONNE[employer]CARE [employer] NON NSPG PCP S[employer] CONNE[employer]CARE [employer] NON NSPG PCP [employer] CONNE[employer]CARE [employer] NON NSPG PCP [employer] CONNE[employer]CARE [employer] NON NSPG PCP SILVER [employer]ARITY CONNECTORCARE [facility] NON NSPG PCP S[place] CONNE[place]ARE [place] [facility] NON NSPG PCP [employer] CONNECTORCARE Care Teams Field Engineer Relationship Specialty Start Date End Date Nohelia Cobb MD [facility] [address] [place] [address] PCP - General Internal Medicine 04/01/19 Additional Source Comments The information contained in this document represents components of the legal health record. It is not the complete legal health record.[facility]
== END 2025-07-02 10:51 | disposition home or self-care (01) ==
LOC: HO.HMGCLNP 10:50
PROVIDERS: PCP Internal Medicine; Visit Provider Physician Assistant
DX: R10.11 Right upper quadrant pain (principal)
CPT/HCPCS: 87338